=== PATIENT | female | born 1935 ===

== ENCOUNTER 2017-05-22 09:45 | Inpatient (IN) | payer MEDICARE, MEDICAID ==
[2017-05-16 09:32] VITALS: BMI 28.9
[2017-05-27] MEDS ORDERED: Propofol 10 mg/ml Inj (20 ML) ONE (10:10)
[2017-05-27] MEDS ORDERED: ceFAZolin IV 2 gm in Dextrose 0 GM/0 ML BAG IVPB ONE (10:12)
[2017-05-27] MEDS ORDERED: Lidocaine 1% Inj (20ml) ONE (10:12)
[2017-05-27] MEDS ORDERED: Lactated Ringer's 1,000 ML IV ONE (10:15)
[2017-05-27] MEDS ORDERED: ceFAZolin IV 1 gm in Dextrose 1 GM/50 ML BAG IVPB ONE (10:29)
[2017-05-27] MEDS ORDERED: Lidocaine 2% w Epi 1:100,000 Inj IJ ONE (10:30)
[2017-05-27] MEDS ORDERED: Lidocaine 2% Inj (20ml) ONE (10:42)
[2017-05-27] MEDS ORDERED: Phenylephrine 10 mg/ml Inj ONE (11:08)
[2017-05-27] MEDS ORDERED: Oxycodone/Acetaminophen 5/325 mg Tab PO PRN (11:23)
[2017-05-27] MEDS ORDERED: Morphine 4 MG/ML VIAL IVP PRN (11:23)
[2017-05-27] MEDS ORDERED: Lactated Ringer's 1,000 ML IV SCH (11:30)
--- NOTE | 2017-05-27 11:39 | PCM.SURG1 ---
Surgeon's Initial Post Op Note - Surgeon's Notes Surgeon: Dr. Veloz [employer] Worker: Dr. Zee PGY3, Dr. Navarrete PGY2 Type of Anesthesia: General LMA Pre-Operative Diagnosis: rectal prolapse Operative Findings: see dictation Post-Operative Diagnosis: same Operation Performed: perineal repair of rectal prolapse Specimen/Specimens Removed: rectal prolapse Estimated Blood Loss: EBL {In ML}: 20 Blood Products Given: N/A Drains Used: No Drains Post-Op Condition: Good Date of Surgery/Procedure: 05/27/17 Time of Surgery/Procedure: 10:15
[2017-05-27] MEDS ORDERED: Dextrose 5%/0.45% NS 1,000 ML IV ONE (15:00)
[2017-05-27] MEDS: (Novolin R) Insulin Human Regular 100 units/ml vial SC SCH ×2 (16:30→22:06)
--- NOTE | 2017-05-27 18:14 | OP ---
PROCEDURE DATE: 05/27/2017 PREOPERATIVE DIAGNOSIS: Rectal prolapse. POSTOPERATIVE DIAGNOSIS: Rectal prolapse. PROCEDURE CARRIED OUT: Perineal repair of rectal prolapse using modified Altemeier procedure. INDICATIONS: Patient is an 81-year-old woman presenting with large rectal prolapse. She also has a rectocele. In addition, the patient has a lesion in the right colon hepatic flexure, which is being considered for intraluminal excision. Preoperatively, the patient had good sphincter tone on our examination. OPERATIVE FINDINGS: The patient was prepped and draped with Hibiclens and Betadine. Antibiotics were given. The prolapsed rectum was dived in three segments and these were excised using curved stapling devices. After this had been done, we then injected Marcaine with epinephrine again with excellent hemostasis. The prolapse was well repaired. There was no additional prolapse at the time. The procedure was terminated. Blood loss for the procedure was less than 25 mL. Operation carried out was perineal repair of rectal prolapse using modified Altemeier technique. Jason Veloz Jr., MD cc: Lilly Lucero MD and Aj Valente MD
[2017-05-28] MEDS: Dextrose 5%/0.45% NS 1,000 ML IV SCH ×2 (02:35→12:53)
[2017-05-28] MEDS: (Novolin R) Insulin Human Regular 100 units/ml vial SC SCH ×4 (08:44→22:09)
[2017-05-28] MEDS: diltiaZEM 180 mg/24 Hours CD Cap PO SCH (09:36)
[2017-05-29] MEDS: (Novolin R) Insulin Human Regular 100 units/ml vial SC SCH ×2 (07:45→12:14)
[2017-05-29 07:53] VITALS: BP 123/78; PULSE 102; RESP 18; TEMP 98.3; O2SAT 95
[2017-05-29] MEDS: diltiaZEM 180 mg/24 Hours CD Cap PO SCH (10:12)
--- NOTE | 2017-05-29 14:13 | CP.PCM.PN ---
Subjective - Date & Time of Evaluation Date of Evaluation: 05/28/17 Time of Evaluation: 07:40 - Subjective Subjective: Gen Sx: Dr Veloz Pt S&E. NAEO. Tolerating diet. Had 2 BMs. Denies N/V, F/C Objective - Vital Signs/Intake and Output Vital Signs (last 24 hours): Temp Pulse Resp BP Pulse Ox 98.3 F 102 H 18 123/78 95 05/29/17 07:00 05/29/17 07:00 05/29/17 07:00 05/29/17 07:00 05/29/17 07:00 Intake and Output: 05/29/17 05/29/17 06:59 18:59 Intake Total 600 Balance 600 - Medications Medications: Current Medications Aspirin (Ecotrin) 81 mg PO DAILY [facility] Last Admin: 05/29/17 10:13 Dose: 81 mg Clopidogrel Bisulfate (Plavix) 75 mg PO DAILY [facility] Last Admin: 05/29/17 10:12 Dose: 75 mg Dabigatran (Pradaxa) 75 mg PO BID [facility] Last Admin: 05/29/17 10:12 Dose: 75 mg Diltiazem HCl (Cardizem Cd) 180 mg PO DAILY [facility] Last Admin: 05/29/17 10:12 Dose: 180 mg Docusate Sodium (Colace) 100 mg PO BID [facility] Last Admin: 05/29/17 10:12 Dose: 100 mg Home Med (Febuxostat [Uloric]) 40 mg PO DAILY [facility] Dextrose/Sodium Chloride (Dextrose 5%/0.45% Ns 1000 Ml) 1,000 mls @ 83 mls/hr IV .Q12H3M [facility] Last Admin: 05/28/17 12:53 Dose: Not Given Insulin Human Regular (Novolin R) 0 unit SC ACHS [facility] PRN Reason: Protocol Last Admin: 05/29/17 12:14 Dose: Not Given Losartan Potassium (Cozaar) 100 mg PO DAILY [facility] Last Admin: 05/29/17 10:12 Dose: 100 mg Morphine Sulfate (Morphine) 4 mg IVP Q4H PRN PRN Reason: Pain, severe (8-10) Ondansetron HCl (Zofran Inj) 4 mg IVP Q4 PRN PRN Reason: Nausea/Vomiting Last Admin: 05/27/17 20:43 Dose: 4 mg Oxycodone/Acetaminophen (Percocet 5/325 Mg Tab) 1 tab PO Q4 PRN PRN Reason: Pain, moderate (4-7) Stop: 05/30/17 11:24 Last Admin: 05/27/17 17:00 Dose: 1 tab Sitagliptin Phosphate (Januvia) 50 mg PO DAILY [facility] Last Admin: 05/29/17 10:12 Dose: 50 mg Zolpidem Tartrate (Ambien) 5 mg PO HS PRN PRN Reason: Insomnia Last Admin: 05/28/17 21:16 Dose: 5 mg - Constitutional Appears: Non-toxic, No Acute Distress - Head Exam Head Exam: NORMAL INSPECTION - ENT Exam ENT Exam: Mucous Membranes Moist - Respiratory Exam Respiratory Exam: absent: Respiratory Distress - Cardiovascular Exam Cardiovascular Exam: REGULAR RHYTHM. absent: Tachycardia - GI/Abdominal Exam GI & Abdominal Exam: Soft. absent: Tenderness Assessment and Plan - Assessment and Plan (Free Text) Assessment: 81F POD#1 s/p PPR Plan: cont reg diet switch to PO pain meds will keep for 1 more day for observation d/w Dr Veloz
--- NOTE | 2017-05-29 14:14 | CP.PCM.DIS ---
Provider - Provider Date of Admission: 05/27/17 08:07 Attending physician: Jason Veloz Jr, MD Time Spent in preparation of Discharge (in minutes): 25 Hospital Course - Lab Results Lab Results: Most Recent Lab Values POC Glucose (mg/dL) 95 mg/dL (65-110) 05/29/17 11:28 - Hospital Course Hospital Course: General Surgery Dr. Veloz 81 y/o F presented to [facility] on 05/27/17 for elective repair of rectal prolapse. Pt tolerated the surgery well w/ no complications. Pt was admitted post- operatively for pain control and monitoring. Pt S&E @bedside this morning. Pt has no complaints. Pain well controlled. Pt tolerating regular diet. Pt denies F /C, N/V, D/C. Pt cleared for discharge to home. Pt instructed to resume all home medications and follow up w/ Dr. Veloz in 1 week. Discharge Exam - Head Exam Head Exam: NORMAL INSPECTION - Eye Exam Eye Exam: Normal appearance - ENT Exam ENT Exam: Mucous Membranes Moist - Respiratory Exam Respiratory Exam: NORMAL BREATHING PATTERN. absent: Accessory Muscle Use, Respiratory Distress - Cardiovascular Exam Cardiovascular Exam: absent: Bradycardia, Tachycardia - GI/Abdominal Exam GI & Abdominal Exam: Soft. absent: Distended, Tenderness - Extremities Exam Extremities exam: normal inspection - Neurological Exam Neurological exam: Alert, Oriented x3 - Psychiatric Exam Psychiatric exam: Normal Affect, Normal Mood - Skin Skin Exam: Dry, Intact, Normal Color, Warm Discharge Plan - Follow Up Plan Condition: GOOD Disposition: HOME/ ROUTINE Instructions: Rectal Prolapse (DC) Additional Instructions: follow up with Dr. Veloz in office in 7-10 days Follow up with PMD within 1 week Recommend daily stool softener Resume all home medications Pt may shower No pools, tubs, baths Call Dr. Veloz and return to the ED if fever >100.4, pain, bleeding, drainage from rectum Referrals: Jason Veloz Jr., MD [Staff Provider] -
== END 2017-05-29 16:52 | disposition home or self-care (01) | DRG 334 ==
LOC: C.9S 05-27 08:07 → EDSTATUS 05-27 09:00 → C.6T 05-27 18:45
PROVIDERS: ADMIT Surgery Vascular Surgery; ATTEND Surgery Vascular Surgery
PROC: 0DTP0ZZ Resection of Rectum, Open Approach (ICD-10-PCS; principal; 2017-05-27 09:00)
DX: K62.3 Rectal prolapse (principal)

== ENCOUNTER 2018-03-20 21:46 | Inpatient (IN) | payer MEDICARE, MEDICAID ==
[2018-03-20 21:47] VITALS: BMI 28.9
--- NOTE | 2018-03-20 21:58 | C.PDOC ---
History Of Present Illness Pt had some left leg pain and numbness around noon. Went to [facility], had a ct of the leg and was discharged. At home eating t[place] , around 8:45-9 pm pt became confused, slurred speech and staring into "space" Ems was called and en route, pt returned to base line. In the Ed ,pt somewhat confused, slow to respond, but moving all extremities. Code stroke was called and pt had a stat head ct which was negative for bleed or stroke. Pt is aaox3 and movesd all extremities. Pt is on a asa and plavix daily Time Seen by Provider: 03/20/18 21:54 Chief Complaint (Nursing): Altered Mental Status History Per: Family History/Exam Limitations: None Onset/Duration Of Symptoms: Hrs Onset Of Symptoms: <3 Hours Current Symptoms Are (Timing): Gone Usual Baseline: Alert Oriented Exacerbating Factor(s): Unknown Use Of Anticoag/Antiplatelets: Yes Character Of Deficits: Left: Weakness, Face: Weakness Speech Is: Normal Severity: Moderate Pain Scale Rating Of: 4 Recent travel outside of the [place]: No Additional History Per: Family Associated Symptoms: denies: Fever, Chills, Syncope Past Medical History Reviewed: Historical Data, Nursing Documentation, Vital Signs - Medical History PMH: Asthma, Cardia Arrhythmia, Depression, HTN, Hypercholesterolemia, Chronic Kidney Disease - [facility] Procedures RESECTION OF RECTUM, OPEN APPROACH (05/27/17) Family History: States: No Known Family Hx - Social History Hx Alcohol Use: No Hx Substance Use: No Physical Exam - Physical Exam Appears: Non-toxic Skin: Warm, Dry Head: Normacephalic Eye(s): bilateral: Normal Inspection, PERRL, EOMI Oral Mucosa: Moist Lips: Normal Appearing Neck: Supple Chest: Symmetrical Cardiovascular: Rhythm Regular Respiratory: No Rales, No Rhonchi, No Wheezing Gastrointestinal/Abdominal: Soft, No Tenderness, No Distention Back: Normal Inspection Extremity: Normal ROM Extremity: Bilateral: Atraumatic, Normal Color And Temperature Pulses: Left Dorsalis Pedis: Normal, Right Dorsalis Pedis: Normal Neurological/Psych: Oriented x3, Normal Speech, Normal Cognition Gait: Unable To Assess ED Course And Treatment - Laboratory Results Result Diagrams: 03/20/18 22:11 03/20/18 22:11 ECG: Interpreted By Me, Viewed By Me ECG Rhythm: Sinus Rhythm (82), Nonspecific Changes O2 Sat by Pulse Oximetry: 97 Pulse Ox Interpretation: Normal Progress Note: 10:[address] capellan. Will get CTA and re-asses. cta essentially neg - spoke with dr capellan again. ok to start keppra 500 q 12h. pt stable. aaox3, moves all extremities Critical Care Time - Critical Care Note Total Time (in mins): 30 Documented critical care: time excludes all time spent performing seperately billable procedures. NIHSS Stroke Scale - Date/Time Evaluation Performed Date Performed: 03/20/18 Time Performed: 21:56 When Was NIHSS Performed: Baseline - How Severe is the Stoke Level of Consciousness: 0=Alert LOC to Questions: 0=Both comments correct LOC to commands: 0=Obeys both correctly Best Gaze: 0=Normal Visual: 0=No visual loss Facial: 0=Normal Motor Arm - Left: 0=No drift Motor Arm - Right: 0=No drift Motor Leg - Left: 0=No drift Motor Leg - Right: 0=No drift Limb Ataxia: 0=Absent Sensory: 0=Normal Best Language: 0=No aphasia Dysarthia: 0=Normal articulation Extinction & Inattention (Neglect): 0=Normal, no object Score: 0 Severity Of Stroke: 0= No Stroke Disposition Discussed With : Yasmin Virgen Comment: accepted the pt on her service and took over the care at 1:20 AM Doctor Will See Patient In The: Hospital Counseled Patient/Family Regarding: Studies Performed, Diagnosis - Disposition Disposition: HOSPITALIZED Disposition Time: 21:54 Condition: GUARDED Forms: [employer] (Portuguese) - Clinical Impression Clinical Impression: TIA (transient ischemic attack), Focal seizure Decision To Admit - Pt Status Changed To: Hospital Disposition Of: Inpatient - Admit Certification Admit to Inpatient:: After my assessment, the patient will require hospitalization for at least two midnights. This is because of the severity of symptoms shown, intensity of services needed, and/or the medical risk in this patient being treated as an outpatient. - InPatient: Physician Admission Certification:: After my assessment, the patient will require hospitalization for at least two midnights. This is because of the severity of symptoms shown, intensity of services needed, and/or the medical risk in this patient being treated as an outpatient. - . Bed Request Type: Telemetry Patient Diagnosis: TIA (transient ischemic attack), Focal seizure
[2018-03-20] MEDS: Sodium Chloride 0.9% 1,000 ML IV SCH (22:00)
[2018-03-20 22:20] LABS: BASO % 0.6 % (0.0-2.0); EOS # 0.1 K/uL (0.0-0.7); EOS % 0.8 % (0.0-4.0); HEMOGLOBIN 13.2 g/dL (11.0-16.0); LYMPH # 1.8 K/uL (1.0-4.3); LYMPH % 22.4 % (20.0-40.0); MEAN CELL VOLUME 84.7 fL (81.0-99.0); MEAN CORPUSCULAR HEMOGLOBIN 28.2 pg (27.0-31.0); MEAN CORPUSCULAR HGB CONC 33.3 g/dL (33.0-37.0); MEAN PLATELET VOLUME 7.2 fL (7.2-11.7); MONO # 0.7 K/uL (0.0-0.8); MONO % 8.1 % (0.0-10.0); NEUT # 5.6 K/uL (1.8-7.0); NEUT % 68.1 % (50.0-75.0); NRBC % 0.1 % (0.0-2.0); RBC 4.68 Mil/uL (3.80-5.20); RED CELL DISTRIBUTION WIDTH 14.8 % (11.5-14.5); WHITE BLOOD COUNT 8.2 K/uL (4.8-10.8)
[2018-03-20 22:24] LABS: INR 1.1
[2018-03-20 22:29] LABS: ALB/GLOB RATIO 1.2 (1.0-2.1); ALT/SGPT 25 U/L (9-52); AST/SGOT 34 U/L (14-36); BLOOD UREA NITROGEN 16 mg/dL (7-17); CALCIUM 8.7 mg/dl (8.6-10.4); GFR NON-AFRICAN AMERICAN > 60; HDL CHOLESTEROL 37 mg/dL (30-70)
[2018-03-20 22:39] LABS: LDL CHOLESTEROL 57 mg/dL (0-129)
[2018-03-20 22:53] LABS: SQUAMOUS EPITHIAL 2 /hpf (0-5); URINE BACTERIA RARE (<OCC); URINE BILIRUBIN NEGATIVE (NEGATIVE); URINE BLOOD NEGATIVE (NEGATIVE); URINE CLARITY Clear (Clear); URINE COLOR Straw (YELLOW); URINE GLUCOSE (UA) NORMAL (Normal); URINE LEUKOCYTE ESTERASE TRACE Leu/uL (Negative); URINE PROTEIN NEGATIVE (NEGATIVE); URINE UROBILINOGEN NORMAL mg/dL (0.2-1.0)
[2018-03-20] MEDS ORDERED: Iodixanol 320 MG/ML 100 ML BOTTLE IV ONE (23:30)
--- NOTE | 2018-03-21 08:34 | RAD ---
Date of service: 03/20/2018 HISTORY: Code Stroke COMPARISON: 05/16/2017. FINDINGS: LUNGS: There is linear scarring in the right lung base. The left lung is clear. No focal consolidation. PLEURA: No significant pleural effusion identified, no pneumothorax apparent. CARDIOVASCULAR: Mild cardiomegaly. OSSEOUS STRUCTURES: No significant abnormalities. VISUALIZED UPPER ABDOMEN: Normal. OTHER FINDINGS: None. IMPRESSION: No acute findings. No interval change.
--- NOTE | 2018-03-21 09:21 | CT ---
Date of service: 03/20/2018 PROCEDURE: CT HEAD WITHOUT CONTRAST. HISTORY: Code Stroke COMPARISON: None available. TECHNIQUE: Axial computed tomography images were obtained through the head/brain without intravenous contrast. Radiation dose: Total exam DLP = 929.21 mGy-cm. This CT exam was performed using one or more of the following dose reduction techniques: Automated exposure control, adjustment of the mA and/or kV according to patient size, and/or use of iterative reconstruction technique. FINDINGS: HEMORRHAGE: No intracranial hemorrhage. BRAIN: [place]-white matter differentiation is preserved. There is no mass, mass effect or abnormal extra-axial fluid collection. There is no territorial infarction. The midline sagittal structures are normal. VENTRICLES: There is mild age-related global parenchymal volume loss and proportionate enlargement of the ventricles and cortical sulci. CALVARIUM: Unremarkable. PARANASAL SINUSES: There is a retention cyst/polyp in the right maxillary sinus and mild mucosal thickening in the left maxillary sinus. MASTOID AIR CELLS: Unremarkable as visualized. No inflammatory changes. OTHER FINDINGS: None. IMPRESSION: No acute intracranial abnormality. If there is a persistent focal neurologic deficit and an ongoing clinical concern for acute infarction, an MRI of the brain without intravenous contrast would be a more sensitive modality for evaluation of hyperacute/acute ischemic infarction. A preliminary report was provided by [employer].
[2018-03-21] MEDS ORDERED: CARVEDILOL 25 MG PO SCH (10:00)
[2018-03-21] MEDS: diltiaZEM 180 mg/24 Hours CD Cap PO SCH ×2 (10:00→12:03)
[2018-03-21] MEDS ORDERED: Ergocalciferol 50,000 Intl Units Cap PO SCH (10:00)
[2018-03-21] MEDS ORDERED: SERTRALINE HCL 50 MG PO SCH (10:00)
--- NOTE | 2018-03-21 10:09 | MRI ---
Date of service: 03/21/2018 PROCEDURE: MRI BRAIN WITHOUT CONTRAST HISTORY: TIA R/O SEIZURE COMPARISON: None available. TECHNIQUE: Multiplanar, multisequence MR images of the brain were obtained without intravenous contrast enhancement. Note the examination is limited by motion artifact. FINDINGS: HEMORRHAGE: No acute parenchymal, subarachnoid or extra-axial hemorrhage. DWI: There is large area acute ischemia involving left posterior temporal lobe extending superiorly into left parietal operculum and left posterior temporal parietal/frontal parietal watershed zone.. BRAIN PARENCHYMA: Minor chronic periventricular white matter ischemic changes.. Few tiny chronic appearing lacunar type infarcts scattered about cerebellar hemispheres and possibly both basal nuclei Mild generalized volume loss VENTRICLES: No obstructive hydrocephalus CRANIUM: No acute calvarial ORBITS: Grossly unremarkable. PARANASAL SINUSES/MASTOIDS: There appears to be a small to medium-sized retention cyst right maxillary. VASCULAR SYSTEM: Visualized major vascular flow voids at skull base patent. OTHER FINDINGS: None. IMPRESSION: Limited motion degraded study. No acute intracranial hemorrhage. Acute infarct right temporal lobe extending superiorly into the right parietal operculum and right temporoparietal watershed zone. Note that 6T Nurse Ava informed these findings at approximately 9:55 a.m. down read back verification. Minimal chronic periventricular white matter ischemic changes. Few tiny chronic appearing lacunar type infarcts scattered about cerebellar hemispheres and possibly both basal nuclei
--- NOTE | 2018-03-21 10:22 | CP.PCM.CON ---
History of Present Illness - History of Present Illness History of Present Illness: PGY1 Neurology Consult Note for Dr. España This is an 82-year-old female who was referred to us by Dr. Virgen, and who has a past medical history of asthma, arrhythmia, depression, hypertension, hypercholesterolemia, CDK who came to the ED for left lower extremity weakness and pain. Patients daughter at bedside. Per patients daughter, the patient was initially brought to [facility], where she a CT of lower extremity was obtained, after which the patient was discharge. Patient was still complaining of left leg pain during the day. However, patients daughter states that the patient began choking on her dinner, which prompted her to call EMS who brought the patient to [facility] ED around 8:45-9:00PM. Per patients daughter, the patient was slurring her words and was staring into "space, but returned to baseline on the way to the ED. While in the ED, the patient was somewhat confused, slow to respond, but moving all extremities. Patient denies chest pain, headache, shortness of breath, vision changes, and/or dizziness. Code stroke was called CT head without contrast was obtained stat, which was unremarkable for intracranial abnormalities. Review of Systems - Constitutional Constitutional: As Per HPI - EENT Eyes: As Per HPI Ears: As Per HPI Nose/Mouth/Throat: As Per HPI - Cardiovascular Cardiovascular: As Per HPI - Musculoskeletal Musculoskeletal: As Per HPI - Neurological Neurological: As Per HPI - Psychiatric Psychiatric: As Per HPI Past Patient History - Past Medical History & Family History Past Medical History?: Yes - Past Social History Smoking Status: Never Smoked - CARDIAC Hx Cardia Arrhythmia: Yes Hx Hypercholesterolemia: Yes Hx Hypertension: Yes - PULMONARY Hx Asthma: Yes - NEUROLOGICAL Hx Neurological Disorder: No - HEENT Hx HEENT Problems: Yes Other/Comment: USES GLASSES FOR READING - RENAL Hx Chronic Kidney Disease: Yes - ENDOCRINE/METABOLIC Hx Endocrine Disorders: Yes Hx Diabetes Mellitus Type 1: Yes - HEMATOLOGICAL/ONCOLOGICAL Hx Blood Disorders: No - INTEGUMENTARY Hx Dermatological Problems: No - MUSCULOSKELETAL/RHEUMATOLOGICAL Hx Musculoskeletal Disorders: Yes Hx Falls: Yes Hx Osteomyelitis: Yes - GASTROINTESTINAL Hx Gastrointestinal Disorders: Yes Other/Comment: RECTAL POLYP - GENITOURINARY/GYNECOLOGICAL Hx Genitourinary Disorders: No - PSYCHIATRIC Hx Depression: Yes Hx Substance Use: No - SURGICAL HISTORY Hx Surgeries: Yes Other/Comment: BREAST REDUCTION 1990, MICAELA HERNADEZ 1990 - ANESTHESIA Hx Anesthesia: Yes Hx Anesthesia Reactions: No Hx Malignant Hyperthermia: No Meds Allergies/Adverse Reactions: Allergies Allergy/AdvReac Type Severity Reaction Status Date / Time No Known Allergies Allergy Verified 05/16/17 09:30 - Medications Medications: Current Medications Aspirin (Ecotrin) 81 mg PO DAILY [facility] Clopidogrel Bisulfate (Plavix) 75 mg PO DAILY [facility] Diltiazem HCl (Cardizem Cd) 180 mg PO DAILY [facility] Ergocalciferol (Drisdol 50,000 Intl Units Cap) 50,000 cap PO QWK [facility] Home Med (Carvedilol) 25 mg PO BID [facility] Home Med (Febuxostat [Uloric]) 40 mg PO DAILY [facility] Home Med (Sertraline Hcl) 50 mg PO DAILY [facility] Sodium Chloride (Sodium Chloride 0.9%) 1,000 mls @ 100 mls/hr IV .Q10H [facility] Last Admin: 03/20/18 22:00 Dose: 100 mls/hr Levetiracetam 500 mg/ Dextrose 105 mls @ 420 mls/hr IVPB Q12H [facility] Stop: 03/22/18 01:29 Last Admin: 03/21/18 01:36 Dose: 420 mls/hr Sitagliptin Phosphate (Januvia) 50 mg PO DAILY [facility] Physical Exam - Constitutional Appears: Non-toxic, No Acute Distress - Head Exam Head Exam: ATRAUMATIC, NORMAL INSPECTION, NORMOCEPHALIC - Eye Exam Eye Exam: EOMI, Normal appearance, PERRL Pupil Exam: NORMAL ACCOMODATION - ENT Exam ENT Exam: Mucous Membranes Moist, Normal Exam - Neck Exam Neck exam: Positive for: Normal Inspection - Neurological Exam Neurological exam: Alert, CN II-XII Intact, Oriented x3, Reflexes Normal - Expanded Neurological Exam Expanded Patient oriented to: person, place, time Cranial nerves: EOM's Intact: Normal, Facial Palsey w/Forehead Movement: Normal, Facial Palsey w/o Forehead Movement: Normal, Facial Sensation: Normal, Gag Reflex: Normal, Nystagmus: Normal, Tongue Deviation: Normal Cerebellar Function: Finger to Nose: Normal Upper motor neuron: Pronator Drift: Normal Sensory exam: Lower Extremity Light Touch: Normal, Upper Extremity Light Touch: Normal Neuro motor strength exam: Left Upper Extremity: 5, Right Upper Extremity: 5, Left Lower Extremity: 5, Right Lower Extremity: 5 - Psychiatric Exam Psychiatric exam: Normal Affect, Normal Mood - Skin Skin Exam: Normal Color Results - Vital Signs Recent Vital Signs: Last Vital Signs Temp 98 F 03/21/18 07:00 Pulse 63 03/21/18 07:00 Resp 20 03/21/18 07:00 BP 147/62 03/21/18 07:00 Pulse Ox 97 03/21/18 07:00 - Labs Result Diagrams: 03/20/18 22:11 03/20/18 22:11 Labs: Laboratory Results - last 24 hr 03/20/18 03/20/18 03/20/18 21:56 22:11 22:11 WBC 8.2 RBC 4.68 Hgb 13.2 Hct 39.7 MCV 84.7 D MCH 28.2 MCHC 33.3 RDW 14.8 H Plt Count 440 H D MPV 7.2 Neut % (Auto) 68.1 Lymph % (Auto) 22.4 [place] % (Auto) 8.1 Eos % (Auto) 0.8 Baso % (Auto) 0.6 Neut # (Auto) 5.6 Lymph # (Auto) 1.8 [place] # (Auto) 0.7 Eos # (Auto) 0.1 Baso # (Auto) 0.0 PT 12.0 INR 1.1 APTT 32 Sodium Potassium Chloride Carbon Dioxide Anion Gap BUN Creatinine Est GFR ( Amer) Est GFR (Non-Af Amer) POC Glucose (mg/dL) 144 H Random Glucose Hemoglobin A1c Calcium Total Bilirubin AST ALT Alkaline Phosphatase Troponin I Total Protein Albumin Globulin Albumin/Globulin Ratio Triglycerides Cholesterol LDL Cholesterol Direct HDL Cholesterol Urine Color Urine Clarity Urine pH Ur Specific [place] Urine Protein Urine Glucose (UA) Urine Ketones Urine Blood Urine Nitrate Urine Bilirubin Urine Urobilinogen Ur Leukocyte Esterase Urine WBC (Auto) Urine RBC (Auto) Ur Squamous Epith Cells Urine Bacteria Blood Type Antibody Screen 03/20/18 03/20/18 03/20/18 22:11 22:11 22:11 WBC RBC Hgb Hct MCV MCH MCHC RDW Plt Count MPV Neut % (Auto) Lymph % (Auto) [place] % (Auto) Eos % (Auto) Baso % (Auto) Neut # (Auto) Lymph # (Auto) [place] # (Auto) Eos # (Auto) Baso # (Auto) PT INR APTT Sodium 142 Potassium 4.8 Chloride 107 Carbon Dioxide 24 Anion Gap 16 BUN 16 Creatinine 0.7 Est GFR ( Amer) > 60 Est GFR (Non-Af Amer) > 60 POC Glucose (mg/dL) Random Glucose 145 H Hemoglobin A1c 6.1 Calcium 8.7 Total Bilirubin 0.8 AST 34 ALT 25 Alkaline Phosphatase 74 Troponin I 0.0180 Total Protein 7.5 Albumin 4.0 Globulin 3.5 Albumin/Globulin Ratio 1.2 Triglycerides 187 H Cholesterol 130 LDL Cholesterol Direct 57 HDL Cholesterol 37 Urine Color Urine Clarity Urine pH Ur Specific [place] Urine Protein Urine Glucose (UA) Urine Ketones Urine Blood Urine Nitrate Urine Bilirubin Urine Urobilinogen Ur Leukocyte Esterase Urine WBC (Auto) Urine RBC (Auto) Ur Squamous Epith Cells Urine Bacteria Blood Type O POSITIVE Antibody Screen Negative 03/20/18 22:39 WBC RBC Hgb Hct MCV MCH MCHC RDW Plt Count MPV Neut % (Auto) Lymph % (Auto) [place] % (Auto) Eos % (Auto) Baso % (Auto) Neut # (Auto) Lymph # (Auto) [place] # (Auto) Eos # (Auto) Baso # (Auto) PT INR APTT Sodium Potassium Chloride Carbon Dioxide Anion Gap BUN Creatinine Est GFR ( Amer) Est GFR (Non-Af Amer) POC Glucose (mg/dL) Random Glucose Hemoglobin A1c Calcium Total Bilirubin AST ALT Alkaline Phosphatase Troponin I Total Protein Albumin Globulin Albumin/Globulin Ratio Triglycerides Cholesterol LDL Cholesterol Direct HDL Cholesterol Urine Color Straw Urine Clarity Clear Urine pH 7.0 Ur Specific [place] 1.039 H Urine Protein Negative Urine Glucose (UA) Normal Urine Ketones Negative Urine Blood Negative Urine Nitrate Negative Urine Bilirubin Negative Urine Urobilinogen Normal Ur Leukocyte Esterase Trace Urine WBC (Auto) 7 H Urine RBC (Auto) 1 Ur Squamous Epith Cells 2 Urine Bacteria Rare Blood Type Antibody Screen Assessment & Plan - Assessment and Plan (Free Text) Assessment: This is an 82-year-old female who was referred to us by Dr. Virgen, and who has a past medical history of asthma, arrhythmia, depression, hypertension, hyp ercholesterolemia, CDK who came to the ED for left lower extremity weakness and pain. Acute Stroke, right temporal lobe infarct - CT head without contrast: No intracranial abnormalities - MRI brain official report: acute infarct of right temporal lobe extending superiorly into right parietal operculum and right temporal parietal watershed zone. A few tiny chronic appearing lacunar type infarct scattered about cerebellar hemisphere is and possibly both basal nuclei. - Continue Aspirin, Plavix, Statin - PRU sensitivity ordered - Patient already being treated with SSRI therapy, as per FLAME study it would be beneficial to switch to fluoxetine instead of zoloft - CTA head & neck official report: limited study due to motion artifact. 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 No evidence of occlusion proximal branches of intracerebral circulation. - Carotid doppler obtained: pending official report - Continue physical therapy
--- NOTE | 2018-03-21 11:26 | CT ---
Date of service: 2018-03-20 PROCEDURE: CT Angiography of the neck and brain with contrast HISTORY: Change in mental status, left facial droop.. TECHNIQUE: Contiguous axial images of the neck and brain were obtained from the level of the skull-base to the superior mediastinum in the arteriographic phase of enhancement. Coronal and sagittal reformats or also generated. IV contrast dose: 100 cc Omnipaque 350 Radiation Dose - DLP: 556.39 mGy-cm This CT exam was performed using one or more of the following dose reduction techniques: Automated exposure control, adjustment of the mA and/or kV according to patient size, and/or use of iterative reconstruction technique.. FINDINGS: Note the examination is limited by motion artifact. The aortic arch is patent though there is aneurysmal dilatation ascending portion of the aortic arch measuring approximately 4.[address] scan of the chest could be performed for further evaluation. The right brachiocephalic and left common carotid artery arise from a common trunk.. Partially ossicular sclerotic plaque changes are seen along the aortic arch and origins of the great vessels. Both proximal/mid common carotid arteries take a short retropharyngeal course. Bifurcations are also in the retropharyngeal region of. Significant atherosclerotic plaque left and to a lesser degree right carotid bifurcations with more significant stenosis on the left side. Due to motion artifact evaluation is limited though estimated diameter stenosis proximal 65 70 %. Less significant stenosis on the right. The internal carotid arteries also exhibit a short retropharyngeal course. The petrous cavernous and supraclinoid segments are poorly seen due to motion artifact however note made of mild partially calcified atherosclerotic plaque along the cavernous carotid segments The anterior and middle cerebral arteries are patent. The distal branches of the anterior middle cerebral arteries also appear patent the poorly seen. Both vertebral arteries are patent throughout right-sided which is larger in caliber/more dominant than the left. Basilar artery is patent. Mid and distal posterior cerebral arteries appear patent as well within limitation of the exam No large aneurysm nor vascular malformation noted within limitation of the exam. OTHER FINDINGS: There is an approximately 1 cm elliptical shaped low-attenuation lesion right lobe thyroid gland. Followup thyroid ultrasound recommended. Mild multilevel degenerative spondylosis of the cervical spine IMPRESSION: Limited study due to motion artifact. Aneurysmal dilatation of the ascending thoracic aorta (approximately 4.5 cm in greatest diameter). Follow-up CT scan chest recommended. Significant atherosclerotic plaque left carotid bifurcation estimated at approximately 65-70 diameter % diameter stenosis with less severe on stenosis on the right side. No evidence of occlusion proximal branches of the intra cerebral circulation. 1 cm low-attenuation lesion right lobe thyroid gland for which thyroid ultrasound recommended
[2018-03-21] MEDS: Sodium Chloride 0.9% 1,000 ML IV SCH ×3 (11:32→22:39)
[2018-03-21] MEDS ORDERED: Patient's Own Medication - Tablet/Capusle PO SCH (12:30)
--- NOTE | 2018-03-21 15:41 | CARD ---
APPROVED REPORT Date of service: 03/20/2018 EKG Measurement Heart [id number] <Conclusion> Normal sinus rhythm ST & T wave abnormality, consider lateral ischemia Abnormal ECG
--- NOTE | 2018-03-22 01:54 | CON ---
DATE: 03/21/2018 CHIEF COMPLAINT AND REASON FOR CONSULTATION: The patient is referred by Dr. Virgen for evaluation and comanagement, as the patient has history of depression and anxiety. The patient has been taking Zoloft and Ambien for many years prescribed by Dr. Muñoz, her primary care doctor. HISTORY OF PRESENT ILLNESS: This is a case of an 82-year-old female who lives alone. The patient was admitted here for change in mental status. According to the chart, the patient earlier went to [facility] complaining of leg pain and numbness and a CAT scan of the leg was negative, went home. The patient at home was eating [place] food and was noted to becoming more confused, having slurred speech, and staring into space. The patient has waxing and waning of her mental status. In the emergency room, code stroke was ordered and her CAT scan of the head showed no bleed but the patient continues to have off and on periods of confusion and also some weakness, and was admitted here for stroke. The patient referred for comanagement. The patient has history of depression and anxiety; has been taking Ambien for more than three years every night to have her sleep, but currently off Ambien and was taking sertraline 50 mg daily for anxiety and depression. The patient was seen today. She has periods of confusion but asking for Ambien, stating that she could not sleep without it. She was earlier given Ativan at night because she became agitated. Today, she seems to be much better. On review of her labs, the patient initially yesterday had a CAT scan of the head that showed no acute intracranial abnormality; however, there is a persistent focal neurologic deficit and ongoing concern for acute infarction. MRI of the brain without IV contrast would be a more sensitive modality to evaluate any hyperacute or acute ischemic infarction. The patient eventually had an MRI of the brain done today and showed the following findings: The patient has an acute infarct, right temporal lobe extending superiorly into the right parietal operculum and right temporoparietal watershed zone. The patient also has minimal chronic periventricular white matter ischemic changes. PAST PSYCHIATRIC HISTORY: History of depression and anxiety as stated. PAST MEDICAL HISTORY: The patient has history of TIA, seizure, rectal prolapse. DRUG AND ALCOHOL HISTORY: Denies any. ALLERGIES: NO KNOWN DRUG ALLERGIES. PSYCHOSOCIAL HISTORY: The patient lives alone in a two family house. Her daughter lives downstairs. MEDICATIONS: List of current medications includes diltiazem, Coreg, Zestril, Ecotrin, Januvia, Keppra, the patient was started on Keppra by neurologist, Plavix, Zoloft 50 mg daily, and Tylenol. PHYSICAL EXAMINATION: VITAL SIGNS: Temperature is 98, pulse 63, blood pressure 157/79, respirations 20, oxygen saturation is 97%. REVIEW OF SYSTEMS: CONSTITUTIONAL: The patient is alert, verbal, oriented x2, periods of confusion seems in her family. The patient states that she does not like the food in the hospital and asking her family if she can have chicken soup from home. SKIN: No diaphoresis. HEENT: No headache or dizziness. No blurring of vision. NECK: Supple. RESPIRATORY: No dyspnea. CARDIOVASCULAR: No chest pain. GASTROINTESTINAL: Appetite is poor. EXTREMITIES: Complaining of weakness. GENITOURINARY: No incontinence. NEUROLOGIC: Alert with periods of confusion, this seems resolving. MENTAL STATUS EXAMINATION: Elderly female with [place] descent, about 5 feet and weighs 146 pounds. Speech is spontaneous, not slurred when seen today and conversing in [place]. today. Affect is reactive. Mood is dysphoric, anxious, and somatic. Thought process, less confused. Thought content, the patient is complaining about the food. She also wants her Ambien for sleep. The patient made aware that she can only have 5 mg of Ambien and not more than 10 per pharmacy protocol of this hospital. No psychosis. No suicidal ideation. Attention and memory seem to be fair. Insight and judgement are fair. Impulse control is fair. IMPRESSION: History of recurrent depression and anxiety as well as acute cerebrovascular accident. PLAN AND RECOMMENDATION: The patient was seen, meds reviewed. We will give Ambien 5 mg at bedtime for insomnia and continue Zoloft 50 mg daily for depression. The patient has been followed for her CVA at this time. Continue treatment plan as outlined. Thank you for the consult. Rudy Skinner MD DATE: 03/21/2018 CHIEF COMPLAINT AND REASON FOR CONSULTATION: The patient is referred by Dr. Virgen for evaluation and comanagement, as the patient has history of depression and anxiety. The patient has been taking Zoloft and Ambien for many years prescribed by Dr. Muñoz, her primary care doctor. HISTORY OF PRESENT ILLNESS: This is a case of an 82-year-old female who lives alone. The patient was admitted here for change in mental status. According to the chart, the patient earlier went to [facility] complaining of leg pain and numbness and a CAT scan of the leg was negative, went home. The patient at home was eating [place] food and was noted to becoming more confused, having slurred speech, and staring into space. The patient has waxing and waning of her mental status. In the emergency room, code stroke was ordered and her CAT scan of the head showed no bleed but the patient continues to have off and on periods of confusion and also some weakness, and was admitted here for stroke. The patient referred for comanagement. The patient has history of depression and anxiety; has been taking Ambien for more than three years every night to have her sleep, but currently off Ambien and was taking sertraline 50 mg daily for anxiety and depression. The patient was seen today. She has periods of confusion but asking for Ambien, stating that she could not sleep without it. She was earlier given Ativan at night because she became agitated. Today, she seems to be much better. On review of her labs, the patient initially yesterday had a CAT scan of the head that showed no acute intracranial abnormality; however, there is a persistent focal neurologic deficit and ongoing concern for acute infarction. MRI of the brain without IV contrast would be a more modality to evaluate any hyperacute or acute ischemic infarction. The patient eventually had an MRI of the brain done today and showed the following finding: The patient has an acute infarct, right temporal lobe extending superiorly into the right parietal operculum and right temporoparietal watershed zone. The patient also has minimal chronic periventricular white matter ischemic changes. PAST PSYCHIATRIC HISTORY: History of depression and anxiety as stated. PAST MEDICAL HISTORY: The patient has history of TIA, seizure, rectal prolapse. DRUG AND ALCOHOL HISTORY: Denies any. ALLERGIES: NO KNOWN DRUG ALLERGIES. PSYCHOSOCIAL HISTORY: The patient lives alone in a two family house. Her daughter lives downstairs. MEDICATIONS: List of current medications includes diltiazem, Coreg, Zestril, Ecotrin, Januvia, Keppra, the patient was started on Keppra by neurologist, Plavix, Zoloft 50 mg daily, and Tylenol. PHYSICAL EXAMINATION: VITAL SIGNS: Temperature is 98, pulse 63, blood pressure 157/79, respirations 20, oxygen saturation is 97%. REVIEW OF SYSTEMS: CONSTITUTIONAL: The patient is alert, verbal, oriented x2, periods of confusion seems in her family. The patient states that she does not like the food in the hospital and asking her family if she can have chicken soup from home. SKIN: No diaphoresis. HEENT: No headache or dizziness. No blurring of vision. NECK: Supple. RESPIRATORY: No dyspnea. CARDIOVASCULAR: No chest pain. GASTROINTESTINAL: Appetite is poor. EXTREMITIES: Complaining of weakness. GENITOURINARY: No incontinence. NEUROLOGIC: Alert with periods of confusion, this seems resolving. MENTAL STATUS EXAMINATION: Elderly female with [place] descent, about 5 feet and weighs 146 pounds. Speech is spontaneous, not slurred today. Affect is reactive. Mood is dysphoric, anxious, and somatic. Thought process, less confused. Thought content, the patient is complaining about the food. She also wants her Ambien for sleep. The patient made aware that she can only have 5 mg of Ambien and not more than 10 per pharmacy protocol of this hospital. No psychosis. No suicidal ideation. Attention and memory seem to be fair. Insight and judgment are fair. Impulse control is fair. IMPRESSION: History of recurrent depression and anxiety as well as acute cerebrovascular accident. PLAN AND RECOMMENDATION: The patient was seen, meds reviewed. We will give Ambien 5 mg at bedtime for insomnia and continue Zoloft 50 mg daily for depression. The patient has been followed for her CVA at this time. Continue treatment plan as outlined. Thank you for the consult. Rudy Skinner MD [facility]
[2018-03-22] MEDS: Sodium Chloride 0.9% 1,000 ML IV SCH ×2 (04:00→14:32)
[2018-03-22] MEDS: diltiaZEM 180 mg/24 Hours CD Cap PO SCH (10:00)
--- NOTE | 2018-03-22 11:31 | CP.PCM.HP ---
History of Present Illness - History of Present Illness History of Present Illness: pt came in [facility] for feeling numness and weekness r foot mri showed new infarction Present on Admission - Present on Admission Any Indicators Present on Admission: No Review of Systems - Review of Systems Systems not reviewed;Unavailable: Acuity of Condition - Constitutional Constitutional: As Per HPI - EENT Eyes: Change in Vision Ears: As Per HPI Nose/Mouth/Throat: As Per HPI - Breasts Breasts: As Per HPI - Cardiovascular Cardiovascular: As Per HPI - Respiratory Respiratory: As Per HPI - Gastrointestinal Gastrointestinal: As Per HPI - Genitourinary Genitourinary: As Per HPI - Reproductive: Female Reproductive:Female: As Per HPI - Menstruation Menstruation: As Per HPI - Musculoskeletal Musculoskeletal: As Per HPI - Integumentary Integumentary: As Per HPI - Neurological Neurological: As Per HPI - Psychiatric Psychiatric: As Per HPI - Endocrine Endocrine: As Per HPI Past Patient History - Past Medical History & Family History Past Medical History?: Yes - Past Social History Smoking Status: Never Smoked - CARDIAC Hx Cardiac Disorders: Yes (cardiac arrhythmia) Hx Hypercholesterolemia: Yes Hx Hypertension: Yes - PULMONARY Hx Asthma: Yes - NEUROLOGICAL Hx Neurological Disorder: No - HEENT Hx HEENT Problems: Yes Other/Comment: USES GLASSES FOR READING - RENAL Hx Chronic Kidney Disease: Yes - ENDOCRINE/METABOLIC Hx Endocrine Disorders: Yes Hx Diabetes Mellitus Type 1: Yes - HEMATOLOGICAL/ONCOLOGICAL Hx Blood Disorders: No - INTEGUMENTARY Hx Dermatological Problems: No - MUSCULOSKELETAL/RHEUMATOLOGICAL Hx Musculoskeletal Disorders: Yes Hx Falls: Yes Hx Osteomyelitis: Yes - GASTROINTESTINAL Hx Gastrointestinal Disorders: Yes Other/Comment: RECTAL POLYP - GENITOURINARY/GYNECOLOGICAL Hx Genitourinary Disorders: No - PSYCHIATRIC Hx Depression: Yes Hx Substance Use: No - SURGICAL HISTORY Hx Surgeries: Yes Other/Comment: BREAST REDUCTION 1990, MICAELA HERNADEZ 1990 - ANESTHESIA Hx Anesthesia: Yes Hx Anesthesia Reactions: No Hx Malignant Hyperthermia: No Meds Allergies/Adverse Reactions: Allergies Allergy/AdvReac Type Severity Reaction Status Date / Time No Known Allergies Allergy Verified 05/16/17 09:30 Physical Exam - Constitutional Appears: Non-toxic, No Acute Distress - Head Exam Head Exam: NORMAL INSPECTION - Eye Exam Eye Exam: Normal appearance Pupil Exam: NORMAL ACCOMODATION - ENT Exam ENT Exam: Mucous Membranes Moist - Neck Exam Neck exam: Positive for: Normal Inspection - Respiratory Exam Respiratory Exam: Clear to Auscultation Bilateral - Cardiovascular Exam Cardiovascular Exam: REGULAR RHYTHM - GI/Abdominal Exam GI & Abdominal Exam: Normal Bowel Sounds - Rectal Exam Rectal Exam: NORMAL INSPECTION - Exam Exam: NORMAL INSPECTION - Extremities Exam Extremities exam: Positive for: normal inspection - Back Exam Back exam: NORMAL INSPECTION - Neurological Exam Neurological exam: Alert, Oriented x3 - Psychiatric Exam Psychiatric exam: Normal Affect - Skin Skin Exam: Normal Color Results - Vital Signs Recent Vital Signs: Last Vital Signs Temp 98.5 F 03/22/18 07:00 Pulse 72 03/22/18 07:00 Resp 18 03/22/18 07:00 BP 150/72 03/22/18 10:00 Pulse Ox 95 03/22/18 07:00 - Labs Result Diagrams: 03/20/18 22:11 03/20/18 22:11 Labs: Laboratory Results - last 24 hr 03/21/18 03/21/18 03/21/18 06:19 11:23 17:29 POC Glucose (mg/dL) 102 108 111 H 03/21/18 21:37 POC Glucose (mg/dL) 101 Assessment & Plan - Assessment and Plan (Free Text) Assessment: acute numness r foot acut brain infarction cva Plan: pt and med neuro consult - Date & Time Date: 03/22/18 Time: 11:36
--- NOTE | 2018-03-22 21:56 | PN ---
DATE: 03/22/2018 SUBJECTIVE: The patient is seen. The patient is seen with family. The patient is more alert. She states that she slept last night. despite her dose of Ambien was reduced to 5 mg po hs . Patient is eating better. MEDICATIONS: On review of her meds, the patient was started by Neurology with Prozac, but the patient has been maintained for years with Sertraline 50 mg daily as prescribed by Dr. Muñoz. There is no need for the patient to change the antidepressant at this time. The patient may need to continue her sertraline which she has been taking for many years, instead of changing to a different antidepressant. We will put her back on sertraline and discontinue the Prozac. The patient as stated has been taking the Sertraline for years, at least 3 years. PHYSICAL EXAMINATION: VITAL SIGNS: Temperature is 98.5, pulse rate is 72, blood pressure 150/72, respirations 18, oxygen saturation is 95%. REVIEW OF SYSTEMS: GENERAL: The patient is more alert, verbal, seen in her room, seen with family members, conversing in Angolan. SKIN: No diaphoresis. HEENT: No headache or dizziness. NECK: Supple. RESPIRATORY: No dyspnea. CARDIOVASCULAR: No chest pain. GASTROINTESTINAL: Appetite is improving. EXTREMITIES: Not complaining of numbness. MUSCULOSKELETAL: Feels weak. NEURO: Alert and oriented x3. GENITOURINARY: No dysuria. MENTAL STATUS EXAMINATION: An elderly female, oriented x3, less confused. Speech: She is conversing in Angolan. Affect is reactive. Mood is dysphoric. Thought process, coherent. Thought content, no psychosis. No suicidal or homicidal ideation. No new complaints noted. Attention and memory seem to be fair. Insight and judgment fair. Impulse control is fair. IMPRESSION: History of recurrent depression, anxiety, as well as acute cerebrovascular accident. PLAN AND RECOMMENDATIONS: The patient is seen, meds reviewed. May continue the Ambien 5 mg at bedtime for insomnia. The patient has chronic insomnia. We will discontinue the Prozac and put her back on Zoloft 50 mg daily, this is her maintenance dose for many years. As stated, there is no need to change to antidepressant at this time. Rudy Skinner MD [facility] # [id number] SUSANA
[2018-03-23 08:42] VITALS: RESP 20
[2018-03-23] MEDS: Sodium Chloride 0.9% 1,000 ML IV SCH ×3 (10:15→22:46)
[2018-03-23] MEDS: diltiaZEM 180 mg/24 Hours CD Cap PO SCH (11:10)
--- NOTE | 2018-03-23 17:56 | PN ---
DATE: 03/23/2018 SUBJECTIVE: The patient is more alert, verbal today. She is expressing desire to go home. The patient was conversing in Georgian and with her family. She states she is looking better and eating better. No signs or symptoms of depression. The patient is currently on Zoloft 50 mg daily and Ambien 5 mg at bedtime. The patient is not complaining of numbness of her lower extremities, she says she can walk. No speech problems. She feels better today. PHYSICAL EXAMINATION: VITAL SIGNS: Temp 98.1, pulse 82, blood pressure 149/80, respirations 20, oxygen saturation 94%. REVIEW OF SYSTEMS: GENERAL: The patient is alert, oriented x3, conversing in Georgian. Seen in her room. She says she wants to go home. Seen family members at bedside. SKIN: No pruritus. HEENT: No headache. No blurring of vision or dizziness. NECK: Supple. RESPIRATORY: No dyspnea. CARDIOVASCULAR: No chest pain. GASTROINTESTINAL: Appetite is improving. The patient was taking chicken soup. EXTREMITIES: No numbness. The patient according to the family is ambulating better. No tremors. Debility improving. NEUROLOGIC: Alert and oriented x3. The patient is not having any speech problems. MENTAL STATUS EXAMINATION: An elderly female, who looks her age, oriented x3. Mood is brighter. Affect is reactive. Speech spontaneous. Thought process, coherent. Thought content, the patient wants to go home. She says she is feeling much better. No psychosis. No suicidal or homicidal ideation. I did tell her that she will need clearance from the urologist as well as also from the attending to go home. Psych bustillo, the patient is clear to go home once cleared by Neuro and once cleared by her primary care attending. The patient can follow up with Dr. Muñoz for her psych meds. No psychosis. No suicidal or homicidal ideation. Attention and memory seem to be fair. Insight and judgment fair. Impulse control is fair. IMPRESSION: History of major depression as well as anxiety, history of cerebrovascular accident stable. PLAN AND RECOMMENDATIONS: The patient is seen, meds reviewed. Psych bustillo, the patient is stable to be discharged to home with family. May continue her sertraline 50 mg daily and Ambien 5 mg at bedtime. The patient can follow up with Dr. Muñoz once released from the hospital. At this time, the patient needs neuro clearance as well as medical clearance from her attending. According to the family Dr. Virgen will be . Rudy Skinner MD MTDShahab
[2018-03-24] MEDS: diltiaZEM 180 mg/24 Hours CD Cap PO SCH (13:54)
--- NOTE | 2018-03-24 14:29 | VASCLAB ---
Date of service: 03/21/2018 PROCEDURE: Carotid Duplex Exam. HISTORY: TIA R/O SEIZURE COMPARISON: None available. TECHNIQUE: Grayscale and duplex Doppler evaluation of the cervical carotid and vertebral arteries were performed. The common carotid, carotid bifurcations and cervical Internal Carotid Artery (ICA) and proximal External Carotid Artery (ECA) were evaluated. The vertebral arteries were evaluated for gross patency and flow direction. Report prepared by Taz Magana, BS, RVT FINDINGS: RIGHT CAROTID ARTERIES: 1. Common Carotid Artery: No significant focal plaque formation of the right common carotid artery. Maximum Peak Systolic velocity: 95 cm/sec: End-diastolic velocity 26 cm/sec. 2. Carotid Bifurcation: Calcific plaque formation. Maximum Peak Systolic velocity: 78 cm/sec: End-diastolic velocity 15 cm/sec. 3. Internal Carotid Artery: Plaque description: 3.1. Proximal Segment: Peak systolic velocity 76 cm/sec: End-diastolic velocity 17 cm/sec - % stenosis 0-15% 3.2. Middle Segment: Peak systolic velocity 63 cm/sec: End-diastolic velocity 17 cm/sec - % stenosis 0-15% 3.3. Distal Segment: Peak systolic velocity 58 cm/sec: End-diastolic velocity 14 cm/sec - % stenosis 0-15% 4. External Carotid Artery: No significant focal plaque formation. Peak systolic velocity 95 cm/sec 5. ICA/CCA Ratio: 0.8 LEFT CAROTID ARTERIES: 1. Common Carotid Artery: No significant focal plaque formation of the left common carotid artery. Maximum Peak Systolic velocity: 68 cm/sec: End-diastolic velocity 15 cm/sec. 2. Carotid Bifurcation: Calcific plaque formation. Maximum Peak Systolic velocity: 75 cm/sec: End-diastolic velocity 11 cm/sec. 3. Internal Carotid Artery: Plaque description: 3.1. Proximal Segment: Peak systolic velocity 82 cm/sec: End-diastolic velocity 27 cm/sec - % stenosis 0-15% 3.2. Middle Segment: Peak systolic velocity 121 cm/sec: End-diastolic velocity 19 cm/sec - % stenosis 0-15% 3.3. Distal Segment: Peak systolic velocity 117 cm/sec: End-diastolic velocity 37 cm/sec - % stenosis 0-15% 4. External Carotid Artery: No significant focal plaque formation. Peak systolic velocity 75 cm/sec 5. ICA/CCA Ratio: 1.8 VERTEBRAL ARTERIES: 1. Right Vertebral Artery: The right vertebral artery flow direction is antegrade. 2. Left Vertebral Artery: The left vertebral artery flow direction is antegrade. OTHER FINDINGS: 1. Right Brachial Blood pressure: 146 mmHg. 2. Left Brachial Blood pressure: 130 mmHg. IMPRESSION: RIGHT: Duplex scan does not suggest hemodynamically significant stenosis of the right extracranial carotid arteries. LEFT: Duplex scan does not suggest hemodynamically significant stenosis of the left extracranial carotid arteries.
[2018-03-24] MEDS: Sodium Chloride 0.9% 1,000 ML IV SCH (15:09)
--- NOTE | 2018-03-24 17:13 | PN ---
DATE: 03/24/2018 SUBJECTIVE: The patient has been medically cleared by Dr. Boswell to go home. Psych bustillo, she is stable and back to baseline. The patient is currently on Zoloft 50 mg daily and Ambien 5 mg at bedtime. The patient is to follow up with Dr. Muñoz, who is her primary care doctor outside for aftercare. The patient's family also report that the patient goes to [facility] day program. The patient was earlier recommended by PT for inpatient subacute rehab, but the patient is refusing. The patient may have outpatient rehab and may get physical therapy. She may just need prescription for how to get physical therapy at the day program with [facility] where the patients get outpatient physical therapy. The patient is to continue her Ambien as well as the sertraline 50 mg at bedtime. The patient seems to be sleeping better at 5 mg at bedtime of Ambien and we will just keep the current dose instead of 10, which she was taking outside. PHYSICAL EXAMINATION: VITAL SIGNS: Temperature is 98.1, pulse rate is 77, blood pressure 150/85, respirations 20, oxygen saturation is 96%. REVIEW OF SYSTEMS: GENERAL: The patient is alert, oriented x2, seen with family, conversing in Greek, back to baseline. SKIN: No diaphoresis. HEENT: No headache. No dizziness. NECK: Supple. RESPIRATORY: No dyspnea. CARDIOVASCULAR: No chest pain. GASTROINTESTINAL: No nausea or vomiting. EXTREMITIES: The patient is ambulatory, but gait is unsteady at times, needs assistance. MUSCULOSKELETAL: Feels weak. NEURO: Alert and oriented x3. The patient has no gross neurological deficit from her stroke. MENTAL STATUS EXAMINATION: An elderly female, seen in her room, alert, verbal and oriented x3. Mood is calm. Affect is reactive. Speech spontaneous. Thought process, coherent. Thought content, the patient is thinking about going home. No psychosis. No suicidal or homicidal ideation. Attention and memory seem to be fair. Insight and judgment fair. Impulse control is fair. IMPRESSION: History of recurrent depression, anxiety, as well as history of cerebrovascular accident improving. PLAN AND RECOMMENDATIONS: The patient is seen, meds reviewed. Psych bustillo, again the patient is stable to go home to her family and to follow up with Dr. Muñoz. I do suggest that the patient can benefit from outpatient physical rehab in the day program with [facility] as well as to continue her current psych meds. The patient seems to be sleeping better with Ambien 5 mg at bedtime and sertraline 50 mg daily. I do suggest to keep the lower dose of Ambien especially as the patient is elderly. She was taking 10 mg at bedtime before and it was lowered here in the hospital, but the patient is sleeping better. Being an elderly patient, she would benefit from lower dose of Ambien for chronic insomnia. Rudy Skinner MD
[2018-03-25 07:54] VITALS: TEMP 98.5; O2SAT 94
[2018-03-25 09:14] VITALS: PULSE 94
[2018-03-25] MEDS: diltiaZEM 180 mg/24 Hours CD Cap PO SCH (09:57)
[2018-03-25 10:01] VITALS: BP 119/76
--- NOTE | 2018-03-25 10:54 | CP.PCM.CON ---
History of Present Illness - History of Present Illness History of Present Illness: Patient reported to have the following per review of documentation: Daughter at bedside This is an 82-year-old female came to the ED for left lower extremity weakness and pain. Per patients daughter, the patient was initially brought to [facility], where she a CT of lower extremity was obtained, after which the patient was discharged. Patient was still complaining of left leg pain during the day. However, patients daughter states that the patient began choking on her dinner, which prompted her to call EMS who brought the patient to [facility] ED around 8:45-9:00PM. Per patients daughter, the patient was slurring her words and was staring into "space, but returned to baseline on the way to the ED. While in the ED, the patient was somewhat confused, slow to respond, but moving all extremities. Patient denies chest pain, headache, shortness of breath, vision changes, and/or dizziness. Code stroke was called: - CT head without contrast was obtained stat, which was unremarkable for intracranial abnormalities. - MRI brain official report: acute infarct of right temporal lobe extending superiorly into right parietal operculum and right temporal parietal watershed zone. A few tiny chronic appearing lacunar type infarct scattered about cerebellar hemisphere is and possibly both basal nuclei. - Carotid U/S: no hemodynamically significant stenosis, midl palque at the BULB B/L Past medical history: asthma, afib, depression, hypertension, hypercholesterolemia, colon polyps hx of GI bleed reported per daughter. Cardiac: AFIB dx'd 1 year ago, no NE, non-smoker Review of Systems - Review of Systems All systems: reviewed and no additional remarkable complaints except Past Patient History - Past Medical History & Family History Past Medical History?: Yes - Past Social History Smoking Status: Never Smoked - CARDIAC Hx Cardia Arrhythmia: Yes Hx Hypercholesterolemia: Yes Hx Hypertension: Yes - PULMONARY Hx Asthma: Yes - NEUROLOGICAL Hx Neurological Disorder: No - HEENT Hx HEENT Problems: Yes Other/Comment: USES GLASSES FOR READING - RENAL Hx Chronic Kidney Disease: Yes - ENDOCRINE/METABOLIC Hx Endocrine Disorders: Yes Hx Diabetes Mellitus Type 1: Yes - HEMATOLOGICAL/ONCOLOGICAL Hx Blood Disorders: No - INTEGUMENTARY Hx Dermatological Problems: No - MUSCULOSKELETAL/RHEUMATOLOGICAL Hx Musculoskeletal Disorders: Yes Hx Falls: Yes Hx Osteomyelitis: Yes - GASTROINTESTINAL Hx Gastrointestinal Disorders: Yes Other/Comment: RECTAL POLYP - GENITOURINARY/GYNECOLOGICAL Hx Genitourinary Disorders: No - PSYCHIATRIC Hx Depression: Yes Hx Substance Use: No - SURGICAL HISTORY Hx Surgeries: Yes Other/Comment: BREAST REDUCTION 1990, MICAELA HERNADEZ 1990 - ANESTHESIA Hx Anesthesia: Yes Hx Anesthesia Reactions: No Hx Malignant Hyperthermia: No Meds Allergies/Adverse Reactions: Allergies Allergy/AdvReac Type Severity Reaction Status Date / Time No Known Allergies Allergy Verified 05/16/17 09:30 - Medications Medications: Current Medications Acetaminophen (Tylenol 325mg Tab) 650 mg PO Q6 PRN PRN Reason: Headache Last Admin: 03/22/18 06:46 Dose: 650 mg Aspirin (Ecotrin) 81 mg PO DAILY [facility] Last Admin: 03/25/18 09:57 Dose: 81 mg Carvedilol (Coreg) 25 mg PO BID [facility] Last Admin: 03/25/18 09:59 Dose: 25 mg Clopidogrel Bisulfate (Plavix) 75 mg PO DAILY [facility] Last Admin: 03/25/18 09:57 Dose: 75 mg Diltiazem HCl (Cardizem Cd) 180 mg PO DAILY [facility] Last Admin: 03/25/18 09:57 Dose: 180 mg Ergocalciferol (Drisdol 50,000 Intl Units Cap) 1 cap PO QWK [facility] Home Med (Febuxostat [Uloric]) 40 mg PO DAILY [facility] Last Admin: 03/25/18 09:57 Dose: 40 mg Sertraline HCl (Zoloft) 50 mg PO DAILY [facility] Last Admin: 03/25/18 09:57 Dose: 50 mg Sitagliptin Phosphate (Januvia) 50 mg PO DAILY [facility] Last Admin: 03/25/18 09:57 Dose: 50 mg Zolpidem Tartrate (Ambien) 5 mg PO HS [facility] Last Admin: 03/24/18 21:49 Dose: 5 mg Physical Exam - Constitutional Appears: No Acute Distress, Chronically Ill - Head Exam Head Exam: ATRAUMATIC, NORMAL INSPECTION, NORMOCEPHALIC - Eye Exam Eye Exam: EOMI, Normal appearance - ENT Exam ENT Exam: Mucous Membranes Moist, Normal Oropharynx - Neck Exam Neck exam: Positive for: Normal Inspection. Negative for: Tenderness - Respiratory Exam Respiratory Exam: Clear to Auscultation Bilateral, NORMAL BREATHING PATTERN. absent: Rhonchi, Wheezes - Cardiovascular Exam Cardiovascular Exam: Irregular Rhythm, +S1, +S2. absent: Systolic Murmur - GI/Abdominal Exam GI & Abdominal Exam: Normal Bowel Sounds, Soft. absent: Tenderness - Extremities Exam Extremities exam: Negative for: calf tenderness, normal inspection, pedal edema - Neurological Exam Neurological exam: Alert, Oriented x3 - Psychiatric Exam Psychiatric exam: Normal Affect, Normal Mood - Skin Skin Exam: Normal Color, Warm Results - Vital Signs Recent Vital Signs: Last Vital Signs Temp 98.5 F 03/25/18 07:00 Pulse 94 H 03/25/18 08:00 Resp 20 03/25/18 07:00 BP 119/76 03/25/18 09:59 Pulse Ox 94 L 03/25/18 07:00 - Labs Result Diagrams: 03/20/18 22:11 03/20/18 22:11 Labs: Laboratory Results - last 24 hr 03/24/18 03/24/18 03/24/18 06:08 11:07 16:42 POC Glucose (mg/dL) 118 H 143 H 92 03/24/18 03/25/18 21:28 06:27 POC Glucose (mg/dL) 96 119 H Assessment & Plan - Assessment and Plan (Free Text) Assessment: 82 y/o with daughter at bedside 1. Presented with acute CVA seen by neuro 2. Documented AFIB < 120's on TELE and EKG ; Per patient daughter initially told of AFIB around 1 year ago during colonoscopy 3. HTN, DM, Normal creatinine 4. Hx of colon polyps, hemmorhoids and reported GI bleed in past with active polyps not yet evaluated recently. ECHO directly seen by me: Normal LVEF, grade 2 diastolic dysfunction, LVH, mild MAC, moderate pulm HTN 53 mmHg, mild AI, mild MR, Mild-mod TR and LAE. EKG: AFIB Other EKG: NSR, no acute ischemic changes Based on the above patient has a [id number] score > 3 suggesting greater benefit from stroke risk reduction with NOAC > However given hx of GI bleed and concern for active polyps this would pose ris k, I have discussed this with family (patient and daughter) and we have agreed to continue ASA/plavix and patient wants to get a GI eval as outpatient to assess bleed risk. Given recent TIA/CVA > cont ASA/plavix /statin for now; Patient and family are aware of inferiority of this plan for stroke risk reduction. > cont coreg 25 BID, and diltiazem 180 daily for rate control > GI evaluation should be done as outpatient > f/u neuro recc as far as clearance for NOAC as outpatient as they refused re hab. If ok then d/c plavix and start eliquis 5 BID with ASA and statin. F/U with me in 1 week. - Date & Time Date: 03/25/18 Time: 11:44
--- NOTE | 2018-03-25 13:00 | CP.PCM.PN ---
Subjective - Date & Time of Evaluation Date of Evaluation: 03/25/18 Time of Evaluation: 13:00 - Subjective Subjective: -FOLLOW UP WITH DR. TRINIDAD, YOUR PRIMARY DOCTOR, IN THE OFFICE WITHIN 5-7 DAYS---CALL THE OFFICE TO MAKE YOUR APPOINTMENT. -YOU NEED TO FOLLOW UP WITH DR. KU, YOUR STOMACH DOCTOR, TO DISCUSS YOUR RISK VERSUS BENEFITS OF STARTING AN ORAL BLOOD THINNER TO TREAT YOUR A-FIB. SINCE YOU HAVE A HISTORY OF POLYPS AND HEMORRHOIDS, IT IS IMPORTANT THAT YOU SEE A STOMACH DOCTOR TO GET AN "OK" FROM THEM TO START THESE BLOOD THINNERS. -FOLLOW UP WITH DR. ROGERS (HEART DOCTOR) IN THE OFFICE IN 1 WEEK. -CONTINUE HOME MEDICATIONS USUAL, INCLUDING YOUR ASPIRIN AND PLAVIX---TAKE BOTH OF THESE ONCE A DAY EVERY DAY. -ALSO, CONTINUE THE TWO MEDICATIONS FOR YOUR AFIB: CARVEDILOL (TAKE 2 TIMES A DAY---MORNING AND EVENING); AND DILTIAZEM (TAKE ONCE A DAY IN THE MORNING). -YOUR CHOLESTEROL MEDICATION HAS BEEN REFILLED AND IT WILL HELP TREAT YOUR STROKE---ATORVASTATIN---TAKE 1 TABLET BY MOUTH AT BEDTIME EVERY NIGHT. -FOLLOW UP WITH DR. EMMANUEL IN THE OFFICE WITHIN 1-2 WEEKS. -FOR FURTHER CONCERNS OR QUESTIONS ABOUT YOUR HOSPITAL STAY, CONTACT DR. LYON'S OFFICE. Objective - Vital Signs/Intake and Output Vital Signs (last 24 hours): Temp Pulse Resp BP Pulse Ox 98.5 F 94 H 20 119/76 94 L 03/25/18 07:00 03/25/18 08:00 03/25/18 07:00 03/25/18 09:59 03/25/18 07:00 - Medications Medications: Current Medications Acetaminophen (Tylenol 325mg Tab) 650 mg PO Q6 PRN PRN Reason: Headache Last Admin: 03/22/18 06:46 Dose: 650 mg Aspirin (Ecotrin) 81 mg PO DAILY [facility] Last Admin: 03/25/18 09:57 Dose: 81 mg Carvedilol (Coreg) 25 mg PO BID [facility] Last Admin: 03/25/18 09:59 Dose: 25 mg Clopidogrel Bisulfate (Plavix) 75 mg PO DAILY [facility] Last Admin: 03/25/18 09:57 Dose: 75 mg Diltiazem HCl (Cardizem Cd) 180 mg PO DAILY [facility] Last Admin: 03/25/18 09:57 Dose: 180 mg Ergocalciferol (Drisdol 50,000 Intl Units Cap) 1 cap PO QWK [facility] Home Med (Febuxostat [Uloric]) 40 mg PO DAILY [facility] Last Admin: 03/25/18 09:57 Dose: 40 mg Sertraline HCl (Zoloft) 50 mg PO DAILY [facility] Last Admin: 03/25/18 09:57 Dose: 50 mg Sitagliptin Phosphate (Januvia) 50 mg PO DAILY [facility] Last Admin: 03/25/18 09:57 Dose: 50 mg Zolpidem Tartrate (Ambien) 5 mg PO HS [facility] Last Admin: 03/24/18 21:49 Dose: 5 mg - Labs Labs: 03/20/18 22:11 03/20/18 22:11 PT 12.0 SECONDS (9.7-12.2) 03/20/18 22:11 INR 1.1 03/20/18 22:11 APTT 32 SECONDS (21-34) 03/20/18 22:11
--- NOTE | 2018-03-25 19:39 | CARD ---
APPROVED REPORT Date of service: 03/25/2018 EXAM: Two-dimensional and M-mode echocardiogram with Doppler and color Doppler. Other Information Quality : GoodRhythm : INDICATION CVA/TIA Atrial Fibrillation 2D DIMENSIONS IVSd1.0 (0.7-1.1cm)LVDd4.0 (3.9-5.9cm) PWd0.9 (0.7-1.1cm)LA Fmezao76 (18-58mL) LVDs1.9 (2.5-4.0cm)FS (%) 51.7 % LVEF (%)83.3 (>50%)LVEF (Camilo's)68.18 % M-Mode DIMENSIONS Left Atrium (MM)4.92 (2.5-4.0cm)IVSd1.12 (0.7-1.1cm) Aortic Root3.30 (2.2-3.7cm)LVDd3.73 (4.0-5.6cm) Aortic Cusp Exc.2.05 (1.5-2.0cm)PWd0.93 (0.7-1.1cm) FS (%) 48 %LVDs1.96 (2.0-3.8cm) LVEF (%)80 (>50%) Aortic Valve AI P 1/2 Pliz507fv Mitral Valve MV E Ffkusiai752.5cm/sE/A ratio0.0 TDI Lateral E' Peak V8.09cm/sMedial E' Peak V7.13cm/sE/Lateral E'16.9 E/Medial E'19.1 Tricuspid Valve TR Peak Uvyafqwo840ms/sTR Peak Gr.60opZlSBYP32jdIa LEFT VENTRICLE The left ventricle is normal size. There is borderline concentric left ventricular hypertrophy. The Ejection Fraction is 65-70%. There is normal LV segmental wall motion. poss a,fib,dilated la,pulmonary htn,elevated la pressures & la volume index is suggestive of moderate degree of lv diastolic dysfunction. RIGHT VENTRICLE The right ventricle is normal size. The right ventricular systolic function is normal. ATRIA The left atrium is moderately dilated. The right atrium size is normal. The interatrial septum is intact with no evidence for an atrial septal defect. AORTIC VALVE The aortic valve is moderately calcified. The aortic valve is trileaflet. There is mild aortic regurgitation. MITRAL VALVE The mitral valve is calcified but opens well. Mitral annular calcification is mild to moderate. Mitral regurgitation is mild. TRICUSPID VALVE The tricuspid valve is normal in structure. There is mild tricuspid regurgitation. Right ventricular systolic pressure is estimated at 55 mmHg. There is moderate pulmonary hypertension. PULMONIC VALVE The pulmonary valve is normal in structure. There is mild pulmonic valvular regurgitation. GREAT VESSELS The aortic root is normal size. The aortic root displays mild sclerocalcific changes of the aortic root. The IVC is normal in size and collapses >50% with inspiration. PERICARDIAL EFFUSION There is no pericardial effusion. <Conclusion> The left ventricle is normal size. There is borderline concentric left ventricular hypertrophy. The Ejection Fraction is 65-70%. poss a,fib,dilated la,pulmonary htn,elevated la pressures & la volume index is suggestive of moderate degree of lv diastolic dysfunction. The left atrium is moderately dilated. The aortic valve is moderately calcified. The aortic valve is trileaflet. There is mild aortic regurgitation. The mitral valve is calcified but opens well. Mitral annular calcification is mild to moderate. Mitral regurgitation is mild. There is mild tricuspid regurgitation. Right ventricular systolic pressure is estimated at 55 mmHg. There is moderate pulmonary hypertension. The aortic root is normal size. The aortic root displays mild sclerocalcific changes of the aortic root. The IVC is normal in size and collapses >50% with inspiration. There is no pericardial effusion.
--- NOTE | 2018-03-25 20:20 | CARD ---
APPROVED REPORT Date of service: 03/24/2018 EKG Measurement Heart [id number] <Conclusion> Atrial fibrillation with rapid ventricular response Nonspecific T wave abnormality Abnormal ECG
--- NOTE | 2018-03-26 12:24 | PCM.EEG ---
Electroencephalogram Report - Electroencephalogram Report Procedure Date: 03/24/18 Condition of Recording: Awake, Drowsy, Asleep Medication: Tylenol, Coreg, Keppra, ativan. Interpretation: Technical Information: This was a 16 -channel EEG, 1-channel EKG routine EEG performed using [employer] equipment. Electrodes were applied using the 10/20 international placement system. During active states, the EEG contained symmetric 10-20 Hz,20-30 uV activity seen bi-frontally. . During resting wakefulness there was a symmetric posterior dominant rhythm at 8.5-9.5 Hz, 30-50 uV, which was reactive to eye opening and closing. . Drowsiness was associated with fragmentation of the posterior dominant rhythm and with slow roving eye movements. Light sleep was recorded and was characterized by sleep spindles, and bilateral theta slowing. Hyperventilation was not performed. Photic stimulation was performed and there were no changes on the record. Focal abnormality; none ECG was associated with a normal sinus rhythm. Impression: This is a normal awake drowsy and sleep electroencephalogram.
--- NOTE | 2018-03-27 07:20 | DS ---
The patient is a 82-year-old female, admitted with a chief complaint of seizure, weakness and ____ CVA. The patient was placed on bedrest, supportive care. The patient cleared to go home with home service. The patient will be discharged to home with physical therapy. Bart Boswell MD
[2018-03-28] MEDS ORDERED: Ergocalciferol 50,000 Intl Units Cap PO SCH (10:00)
== END 2018-03-25 15:13 | disposition home or self-care (01) | DRG 65 ==
LOC: C.ER 21:46 → C.9E 03-21 01:15 → C.6T 03-21 02:19
PROVIDERS: ADMIT Internal Medicine; ATTEND Internal Medicine
DX: I63.9 Cerebral infarction, unspecified (principal); G40.89 Other seizures; F33.9 Major depressive disorder, recurrent, unspecified; I12.9 Hypertensive chronic kidney disease with stage 1 through stage 4 chronic kidney disease, or unspecified chronic kidney disease; E11.22 Type 2 diabetes mellitus with diabetic chronic kidney disease; N18.9 Chronic kidney disease, unspecified; I65.22 Occlusion and stenosis of left carotid artery; I27.20 Pulmonary hypertension, unspecified; I48.91 Unspecified atrial fibrillation; R41.0 Disorientation, unspecified; J45.909 Unspecified asthma, uncomplicated; F41.9 Anxiety disorder, unspecified; E78.00 Pure hypercholesterolemia, unspecified; Z79.84 Long term (current) use of oral hypoglycemic drugs; Z79.899 Other long term (current) drug therapy; Z86.010 Personal history of colon polyps; Z86.73 Personal history of transient ischemic attack (TIA), and cerebral infarction without residual deficits; Z87.19 Personal history of other diseases of the digestive system; Z79.82 Long term (current) use of aspirin

== ENCOUNTER 2018-07-01 18:32 | Emergency (ER) | payer MEDICARE, MEDICAID ==
[2018-07-01 18:32] VITALS: BMI 28.9
[2018-07-01 18:54] VITALS: RESP 18
[2018-07-01] MEDS ORDERED: Pantoprazole 80 MG in Sodium Chloride 0.9% 100 ML IV STA (19:57)
--- NOTE | 2018-07-01 19:57 | C.PDOC ---
History Of Present Illness Patient presents to the ER from adult daycare for rectal bleeding. Patient has a Hx of hemorrhoids and had a little bleeding while at daycare. Denies rectal pain, fever, or chills. Time Seen by Provider: 07/01/18 19:40 Chief Complaint (Nursing): GI Problem History Per: Patient History/Exam Limitations: no limitations Onset/Duration Of Symptoms: Hrs Current Symptoms Are (Timing): Still Present Recent travel outside of the [place]: No Past Medical History Reviewed: Historical Data, Nursing Documentation, Vital Signs Vital Signs: Last Vital Signs Temp 98.1 F 07/01/18 18:51 Pulse 76 07/01/18 18:51 Resp 18 07/01/18 18:51 BP 130/86 07/01/18 18:51 Pulse Ox 100 07/01/18 18:51 - Medical History PMH: Asthma, Cardia Arrhythmia, Depression, HTN, Hypercholesterolemia, Chronic Kidney Disease - [facility] Procedures RESECTION OF RECTUM, OPEN APPROACH (05/27/17) Family History: States: Unknown Family Hx - Social History Hx Alcohol Use: No Hx Substance Use: No Review Of Systems Constitutional: Negative for: Fever, Chills Cardiovascular: Negative for: Chest Pain, Palpitations, Light Headedness Respiratory: Negative for: Cough, Shortness of Breath Gastrointestinal: Positive for: Other (Rectal bleeding). Negative for: Nausea, Vomiting, Rectal Pain Neurological: Negative for: Weakness, Numbness, Dizziness Physical Exam - Physical Exam Appears: Non-toxic Skin: Warm, Dry Head: Normacephalic Oral Mucosa: Moist Chest: Symmetrical, No Tenderness Cardiovascular: Rhythm Regular Respiratory: No Rales, No Rhonchi, No Wheezing Gastrointestinal/Abdominal: Soft, No Tenderness, Other (RN present) Rectal: Other (Small rectal fissure/tear not actively bleeding. Small external nonthrombosed hemorrhoid.) Neurological/Psych: Oriented x3 ED Course And Treatment - Laboratory Results Result Diagrams: 07/01/18 20:08 07/01/18 20:08 O2 Sat by Pulse Oximetry: 100 (Room air) Pulse Ox Interpretation: Normal Progress Note: Blood work and occult blood test ordered. Protonix administered. Reevaluation Time: 21:03 Reassessment Condition: Improved Medical Decision Making Medical Decision Making: Upon provider reevaluation patient is feeling better, is medically stable, and requires no further treatment in the ED at this time. Patient will be discharged home with Rx for anusol hc and miralax. Counseling was provided and all questions were answered regarding diagnosis and need for follow up withdr chang. There is agreement to discharge plan. Return if symptoms persist or worsen. Disposition Counseled Patient/Family Regarding: Studies Performed, Diagnosis, Need For Followup, Rx Given - Disposition Referrals: Erickson Chang MD [Medical Doctor] - Disposition: HOME/ ROUTINE Disposition Time: 19:56 Condition: FAIR Additional Instructions: Por favor regrese si los sntomas recurren. Prescriptions: Hydrocortisone 2.5% (Rectal) [Anusol-HC] 30 applic NC BID #1 tube Polyethylene Glycol 3350 [Miralax] 17 gm PO DAILY #270 ml Instructions: Hemorrhoids (DC) Forms: [employer] (Hungarian) Print Language: GERMAN - Clinical Impression Clinical Impression: Hemorrhoids, Rectal fissure - Scribe Statement The provider has reviewed the documentation as recorded by the Scribflorence De La Fuente All medical record entries made by the Erwinibflorence were at my direction and personally dictated by me. I have reviewed the chart and agree that the record accurately reflects my personal performance of the history, physical exam, medical decision making, and the department course for this patient. I have also personally directed, reviewed, and agree with the discharge instructions and disposition.
[2018-07-01 20:11] LABS: BASO # 0.1 K/uL (0.0-0.2); BASO % 0.7 % (0.0-2.0); EOS % 0.5 % (0.0-4.0); HEMOGLOBIN 12.3 g/dL (11.0-16.0); LYMPH # 1.4 K/uL (1.0-4.3); LYMPH % 13.3 % (20.0-40.0); MEAN CORPUSCULAR HEMOGLOBIN 28.3 pg (27.0-31.0); MEAN CORPUSCULAR HGB CONC 31.7 g/dL (33.0-37.0); MEAN PLATELET VOLUME 7.8 fL (7.2-11.7); MONO # 1.5 K/uL (0.0-0.8); MONO % 13.9 % (0.0-10.0); NEUT # 7.5 K/uL (1.8-7.0); NEUT % 71.6 % (50.0-75.0); RBC 4.35 Mil/uL (3.80-5.20); RED CELL DISTRIBUTION WIDTH 14.6 % (11.5-14.5); WHITE BLOOD COUNT 10.5 K/uL (4.8-10.8)
[2018-07-01 20:27] LABS: MEAN CELL VOLUME 89.1 fL (81.0-99.0)
[2018-07-01 20:28] LABS: INR 1.5; PROTHROMBIN TIME 16.6 SECONDS (9.7-12.2)
[2018-07-01 20:32] LABS: ALB/GLOB RATIO 1.3 (1.0-2.1); ALBUMIN 3.7 g/dL (3.5-5.0); CALCIUM 9.3 mg/dl (8.6-10.4)
[2018-07-01 21:23] VITALS: BP 145/81; PULSE 98; TEMP 99.6; O2SAT 96
== END 2018-07-01 21:32 | disposition home or self-care (01) ==
LOC: C.ER 18:32
DX: K64.4 Residual hemorrhoidal skin tags (principal); K60.2 Anal fissure, unspecified
CPT/HCPCS: 80053; 85025; 85610; 85730; 86850; 86900; 96374; 99283; C9113; G0328

== ENCOUNTER 2018-07-04 09:13 | Inpatient (IN) | payer MEDICARE, MEDICAID ==
[2018-07-04 09:14] VITALS: BMI 28.9
[2018-07-04 10:16] LABS: BASO # 0.1 K/uL (0.0-0.2); BASO % 0.8 % (0.0-2.0); EOS # 0.1 K/uL (0.0-0.7); EOS % 1.6 % (0.0-4.0); HEMOGLOBIN 11.7 g/dL (11.0-16.0); LYMPH # 1.3 K/uL (1.0-4.3); LYMPH % 19.4 % (20.0-40.0); MEAN CELL VOLUME 88.8 fL (81.0-99.0); MEAN CORPUSCULAR HEMOGLOBIN 29.1 pg (27.0-31.0); MEAN CORPUSCULAR HGB CONC 32.8 g/dL (33.0-37.0); MEAN PLATELET VOLUME 7.8 fL (7.2-11.7); MONO # 0.8 K/uL (0.0-0.8); MONO % 11.6 % (0.0-10.0); NEUT # 4.4 K/uL (1.8-7.0); NEUT % 66.6 % (50.0-75.0); RBC 4.03 Mil/uL (3.80-5.20); RED CELL DISTRIBUTION WIDTH 14.3 % (11.5-14.5); WHITE BLOOD COUNT 6.6 K/uL (4.8-10.8)
[2018-07-04 10:29] LABS: INR 1.5; PROTHROMBIN TIME 16.6 SECONDS (9.7-12.2)
[2018-07-04 10:43] LABS: ALB/GLOB RATIO 1.2 (1.0-2.1); ALBUMIN 3.5 g/dL (3.5-5.0); ALT/SGPT 22 U/L (9-52); AST/SGOT 21 U/L (14-36); BLOOD UREA NITROGEN 20 mg/dL (7-17); CALCIUM 8.6 mg/dl (8.6-10.4); GFR NON-AFRICAN AMERICAN 53
[2018-07-04 11:04] LABS: SQUAMOUS EPITHIAL 1 /hpf (0-5); URINE BACTERIA MANY (<OCC); URINE BILIRUBIN NEGATIVE (NEGATIVE); URINE BLOOD NEGATIVE (NEGATIVE); URINE CLARITY Hazy (Clear); URINE COLOR Yellow (YELLOW); URINE GLUCOSE (UA) NORMAL (Normal); URINE LEUKOCYTE ESTERASE 1+ Leu/uL (Negative); URINE PROTEIN NEGATIVE (NEGATIVE); URINE UROBILINOGEN NORMAL mg/dL (0.2-1.0)
--- NOTE | 2018-07-04 11:24 | RAD ---
Date of service: 07/04/2018 HISTORY: rectal bleeding COMPARISON: Portable chest 03/20/2018. FINDINGS: LUNGS: Prior linear atelectasis at the right base appears clear. No consolidation bilaterally. PLEURA: No significant pleural effusion identified, no pneumothorax apparent. CARDIOVASCULAR: Calcific atherosclerotic changes are seen related to the thoracic aorta. Mild cardiomegaly again evident. No pulmonary vascular congestion. OSSEOUS STRUCTURES: No significant abnormalities. VISUALIZED UPPER ABDOMEN: Mildly elevated right hemidiaphragm reiterated. OTHER FINDINGS: None. IMPRESSION: No interval acute cardiopulmonary disease appreciated. Mildly elevated right hemidiaphragm reiterated.
--- NOTE | 2018-07-04 11:26 | C.PDOC ---
History Of Present Illness 82 y/o female brought in by family for evaluation of rectal bleeding. Patient has hx of rectal prolapse, surgically repaired in 05/2017. As per daughter, patient has not been taking her laxatives regularly and has some constipation. They noted bleeding from the area today and called Dr. Veloz, who sent patient to the ED. Of note patient is on eliquis and aspirin. Time Seen by Provider: 07/04/18 09:25 Chief Complaint (Nursing): GI Problem History Per: Patient History/Exam Limitations: no limitations Onset/Duration Of Symptoms: Hrs Current Symptoms Are (Timing): Still Present Additional History Per: Family Past Medical History Reviewed: Historical Data, Nursing Documentation, Vital Signs Vital Signs: Last Vital Signs Temp 97.5 F L 07/04/18 09:38 Pulse 76 07/04/18 09:38 Resp 22 07/04/18 09:38 BP 110/46 L 07/04/18 09:38 Pulse Ox 95 07/04/18 09:38 - Medical History PMH: Asthma, Cardia Arrhythmia, Depression, HTN, Hypercholesterolemia, Chronic Kidney Disease, Rheumatoid Arthritis - [facility] Procedures RESECTION OF RECTUM, OPEN APPROACH (05/27/17) Family History: States: Unknown Family Hx - Social History Hx Alcohol Use: No Hx Substance Use: No - Immunization History Hx Tetanus Toxoid Vaccination: No Hx Influenza Vaccination: Yes Hx Pneumococcal Vaccination: No Review Of Systems Constitutional: Negative for: Fever, Chills Cardiovascular: Negative for: Chest Pain, Light Headedness Respiratory: Negative for: Shortness of Breath Gastrointestinal: Positive for: Rectal Pain, Other (rectal prolapse, + bleeding from rectum). Negative for: Nausea, Vomiting, Abdominal Pain, Diarrhea Skin: Negative for: Rash Neurological: Negative for: Weakness, Dizziness Physical Exam - Physical Exam Appears: Non-toxic, No Acute Distress Skin: Warm, Dry Head: Atraumatic, Normacephalic Eye(s): bilateral: Normal Inspection, PERRL, EOMI Neck: Normal ROM Chest: Symmetrical Cardiovascular: Rhythm Regular, No Murmur Respiratory: Normal Breath Sounds, No Accessory Muscle Use Gastrointestinal/Abdominal: Soft, No Tenderness, No Distention, No Guarding Rectal: Other (No obvious prolapse, + blood noted on diaper) Extremity: Bilateral: Atraumatic, Normal Color And Temperature, Normal ROM (x 4) Pulses: Left Dorsalis Pedis: Normal, Right Dorsalis Pedis: Normal Neurological/Psych: Oriented x3, Normal Speech ED Course And Treatment - Laboratory Results Result Diagrams: 07/04/18 10:10 07/04/18 10:07 Lab Results: PT 16.6 SECONDS (9.7-12.2) H 07/04/18 10:10 INR 1.5 07/04/18 10:10 APTT 36 SECONDS (21-34) H 07/04/18 10:10 Total Bilirubin 0.4 mg/dL (0.2-1.3) 07/04/18 10:07 AST 21 U/L (14-36) 07/04/18 10:07 ALT 22 U/L (9-52) 07/04/18 10:07 Alkaline Phosphatase 59 U/L (38-126) 07/04/18 10:07 Total Protein 6.3 g/dL (6.3-8.3) 07/04/18 10:07 Albumin 3.5 g/dL (3.5-5.0) 07/04/18 10:07 Globulin 2.8 gm/dL (2.2-3.9) 07/04/18 10:07 Albumin/Globulin Ratio 1.2 (1.0-2.1) 07/04/18 10:07 Urine Color Yellow (YELLOW) 07/04/18 10:49 Urine Clarity Hazy (Clear) 07/04/18 10:49 Urine pH 5.0 (5.0-8.0) 07/04/18 10:49 Ur Specific [place] 1.013 (1.003-1.030) 07/04/18 10:49 Urine Protein Negative mg/dL (NEGATIVE) 07/04/18 10:49 Urine Glucose (UA) Normal mg/dL (Normal) 07/04/18 10:49 Urine Ketones Negative mg/dL (NEGATIVE) 07/04/18 10:49 Urine Blood Negative (NEGATIVE) 07/04/18 10:49 Urine Nitrate Positive (NEGATIVE) H 07/04/18 10:49 Urine Bilirubin Negative (NEGATIVE) 07/04/18 10:49 Urine Urobilinogen Normal mg/dL (0.2-1.0) 07/04/18 10:49 Ur Leukocyte Esterase 1+ Marsha/uL (Negative) H 07/04/18 10:49 Urine WBC (Auto) 32 /hpf (0-5) H 07/04/18 10:49 Urine RBC (Auto) 1 /hpf (0-3) 07/04/18 10:49 Ur Squamous Epith Cells 1 /hpf (0-5) 07/04/18 10:49 Urine Bacteria Many (<OCC) H 07/04/18 10:49 Hyaline Casts 3-5 /lpf (0-2) H 07/04/18 10:49 O2 Sat by Pulse Oximetry: 95 (RA) Pulse Ox Interpretation: Normal Progress Note: Blood work and urine sent for analysis. Discussed with Dr. Veloz, patient will be taken to the OR for repair. CXR and EKG obtained for admission. Labs reviewed, patient is not anemic. Coags slightly elevated. Patient's daughter at bedside requests that Dr. Boswell take care of patient. - Physician Consult Information Time Consulting Physician Contacted: 11:45 Physician Contacted: Bart Boswell Outcome Of Conversation: Patient accepted for admission Disposition Counseled Patient/Family Regarding: Studies Performed, Diagnosis - Disposition Disposition: HOSPITALIZED Disposition Time: 11:45 Condition: FAIR - Clinical Impression Clinical Impression: Rectal prolapse - PA / DECORATING INSPECTOR / Resident Statement MD/DO has reviewed & agrees with the documentation as recorded. - Scribe Statement The provider has reviewed the documentation as recorded by the Clarke Walker All medical record entries made by the Scribe were at my direction and personally dictated by me. I have reviewed the chart and agree that the record accurately reflects my personal performance of the history, physical exam, medical decision making, and the department course for this patient. I have also personally directed, reviewed, and agree with the discharge instructions and disposition. Decision To Admit - Pt Status Changed To: Hospital Disposition Of: Inpatient - Admit Certification Admit to Inpatient:: After my assessment, the patient will require hospitalization for at least two midnights. This is because of the severity of symptoms shown, intensity of services needed, and/or the medical risk in this patient being treated as an outpatient. - InPatient: Physician Admission Certification: I certify that this patient requires 2 or more midnights of care for the following reason:: Pt will be medically clear and will need OR treatment - . Bed Request Type: Regular Admitting Physician: Bart Boswell Patient Diagnosis: Rectal prolapse
--- NOTE | 2018-07-04 14:15 | CP.PCM.CON ---
History of Present Illness - History of Present Illness History of Present Illness: Surgery consult note for Dr. Veloz. H&P obtained through chart review as patient denied all medical history. 82 F w/ PMhx asthma, afib, depression, hypertension, hypercholesterolemia, colon polyps hx of GI bleed, and rectal prolapse (surgically repaired in 2017) presents to ED for evaluation of rectal bleeding. Patient has not been taking laxatives regularly and has constipation. Patient states she has had irregular bowel movements for the past several days with some blood. Patient denies headaches, vision changes, abdominal pain, nausea, vomiting, fevers, chills, chest pain, lower extremity pain. PMHx: asthma, afib, depression, hypertension, hypercholesterolemia, colon polyps hx of GI bleed, and rectal prolapse PSHx: Rectal prolapse fixation Allergies: NKDA SHx: Denies ETOH and tobacco use Review of Systems - Review of Systems All systems: reviewed and no additional remarkable complaints except - Constitutional Constitutional: As Per HPI Past Patient History - Past Medical History & Family History Past Medical History?: Yes - Past Social History Smoking Status: Never Smoked - CARDIAC Hx Cardia Arrhythmia: Yes Hx Hypercholesterolemia: Yes Hx Hypertension: Yes - PULMONARY Hx Asthma: Yes - NEUROLOGICAL HX Cerebrovascular Accident: Yes - HEENT Hx HEENT Problems: Yes Other/Comment: USES GLASSES FOR READING - RENAL Hx Chronic Kidney Disease: Yes - ENDOCRINE/METABOLIC Hx Endocrine Disorders: Yes Hx Diabetes Mellitus Type 1: Yes - HEMATOLOGICAL/ONCOLOGICAL Hx Blood Disorders: No - INTEGUMENTARY Hx Dermatological Problems: No - MUSCULOSKELETAL/RHEUMATOLOGICAL Hx Rheumatoid Arthritis: Yes - GASTROINTESTINAL Hx Gastrointestinal Disorders: Yes Other/Comment: RECTAL POLYP - GENITOURINARY/GYNECOLOGICAL Hx Genitourinary Disorders: No Hx Incontinence: Yes - PSYCHIATRIC Hx Depression: Yes Hx Substance Use: No - SURGICAL HISTORY Hx Surgeries: Yes Other/Comment: BREAST REDUCTION 1990, TUMMY TUCK 1990. colonoscopy; colorectal - ANESTHESIA Hx Anesthesia: Yes Hx Anesthesia Reactions: No Hx Malignant Hyperthermia: No Meds Allergies/Adverse Reactions: Allergies Allergy/AdvReac Type Severity Reaction Status Date / Time No Known Allergies Allergy Verified 05/16/17 09:30 Physical Exam - Constitutional Appears: Non-toxic, No Acute Distress - Head Exam Head Exam: NORMAL INSPECTION - Eye Exam Eye Exam: Normal appearance - ENT Exam ENT Exam: Mucous Membranes Moist - Respiratory Exam Respiratory Exam: Clear to Auscultation Bilateral, NORMAL BREATHING PATTERN. 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 Negative for: calf tenderness, pedal edema - Neurological Exam Neurological exam: Alert, Oriented x3 - Psychiatric Exam Psychiatric exam: Normal Affect, Normal Mood - Skin Skin Exam: Warm Results - Vital Signs Recent Vital Signs: Last Vital Signs Temp 97.5 F L 07/04/18 09:38 Pulse 85 07/04/18 11:56 Resp 20 07/04/18 11:56 BP 126/62 07/04/18 11:56 Pulse Ox 95 07/04/18 11:56 - Labs Result Diagrams: 07/04/18 10:10 07/04/18 10:07 Labs: Laboratory Results - last 24 hr 07/04/18 07/04/18 07/04/18 09:37 10:07 10:10 WBC 6.6 RBC 4.03 Hgb 11.7 Hct 35.8 MCV 88.8 MCH 29.1 MCHC 32.8 L RDW 14.3 Plt Count 386 MPV 7.8 Neut % (Auto) 66.6 Lymph % (Auto) 19.4 L [place] % (Auto) 11.6 H Eos % (Auto) 1.6 Baso % (Auto) 0.8 Neut # (Auto) 4.4 Lymph # (Auto) 1.3 [place] # (Auto) 0.8 Eos # (Auto) 0.1 Baso # (Auto) 0.1 PT INR APTT Sodium 138 Potassium 4.0 Chloride 107 Carbon Dioxide 25 Anion Gap 10 BUN 20 H Creatinine 1.0 Est GFR ( Amer) > 60 Est GFR (Non-Af Amer) 53 POC Glucose (mg/dL) 151 H Random Glucose 129 H Calcium 8.6 Total Bilirubin 0.4 AST 21 ALT 22 Alkaline Phosphatase 59 Total Protein 6.3 Albumin 3.5 Globulin 2.8 Albumin/Globulin Ratio 1.2 Urine Color Urine Clarity Urine pH Ur Specific [place] Urine Protein Urine Glucose (UA) Urine Ketones Urine Blood Urine Nitrate Urine Bilirubin Urine Urobilinogen Ur Leukocyte Esterase Urine WBC (Auto) Urine RBC (Auto) Ur Squamous Epith Cells Urine Bacteria Hyaline Casts Blood Type Antibody Screen 07/04/18 07/04/18 07/04/18 10:10 10:10 10:49 WBC RBC Hgb Hct MCV MCH MCHC RDW Plt Count MPV Neut % (Auto) Lymph % (Auto) [place] % (Auto) Eos % (Auto) Baso % (Auto) Neut # (Auto) Lymph # (Auto) [place] # (Auto) Eos # (Auto) Baso # (Auto) PT 16.6 H INR 1.5 APTT 36 H Sodium Potassium Chloride Carbon Dioxide Anion Gap BUN Creatinine Est GFR ( Amer) Est GFR (Non-Af Amer) POC Glucose (mg/dL) Random Glucose Calcium Total Bilirubin AST ALT Alkaline Phosphatase Total Protein Albumin Globulin Albumin/Globulin Ratio Urine Color Yellow Urine Clarity Hazy Urine pH 5.0 Ur Specific [place] 1.013 Urine Protein Negative Urine Glucose (UA) Normal Urine Ketones Negative Urine Blood Negative Urine Nitrate Positive H Urine Bilirubin Negative Urine Urobilinogen Normal Ur Leukocyte Esterase 1+ H Urine WBC (Auto) 32 H Urine RBC (Auto) 1 Ur Squamous Epith Cells 1 Urine Bacteria Many H Hyaline Casts 3-5 H Blood Type O POSITIVE Antibody Screen Negative Assessment & Plan - Assessment and Plan (Free Text) Assessment: 82 F presenting to ED w/ rectal prolapse Plan: - Thiersch procedure Saturday - Cardiac risk stratification will be needed - hold anticoagulants - Further recs per Dr. Magdiel Steiner, PGY1
--- NOTE | 2018-07-04 15:17 | CP.PCM.PN ---
Subjective - Date & Time of Evaluation Date of Evaluation: 07/04/18 Time of Evaluation: 15:15 - Subjective Subjective: RECURRENT RECTAL PROLAPSE REPAIRED VIA PERINEUM IN 2017 WILL DO THIERSCH procedure saturday Objective - Vital Signs/Intake and Output Vital Signs (last 24 hours): Temp Pulse Resp BP Pulse Ox 97.5 F L 84 16 130/65 96 07/04/18 09:38 07/04/18 14:56 07/04/18 14:56 07/04/18 14:56 07/04/18 14:56 - Labs Labs: 07/04/18 10:10 07/04/18 10:07 PT 16.6 SECONDS (9.7-12.2) H 07/04/18 10:10 INR 1.5 07/04/18 10:10 APTT 36 SECONDS (21-34) H 07/04/18 10:10
[2018-07-04] MEDS ORDERED: Iohexol 240 (50 ml) PO ONE (16:00)
[2018-07-04] MEDS ORDERED: Iohexol 240 (50 ml) ONE (16:06)
--- NOTE | 2018-07-04 18:35 | CT ---
Date of service: 07/04/2018 PROCEDURE: CT Abdomen and Pelvis without intravenous contrast HISTORY: RECTAL PROPLAPSE COMPARISON: None. TECHNIQUE: Contiguous images were obtained from the domes of the diaphragms to the upper thighs without the administration of intravenous contrast. Oral contrast was administered. Radiation dose: Total exam DLP = 481.42 mGy-cm. This CT exam was performed using one or more of the following dose reduction techniques: Automated exposure control, adjustment of the mA and/or kV according to patient size, and/or use of iterative reconstruction technique. FINDINGS: LOWER THORAX: Cardiomegaly. Coronary arterial and valvular calcifications. Right lower lobe patchy reticular nodular and tree-in-bud opacities. LIVER: Unremarkable. No gross lesion or ductal dilatation. GALLBLADDER AND BILE DUCTS: Unremarkable. PANCREAS: Unremarkable. No gross lesion or ductal dilatation. SPLEEN: Unremarkable. ADRENALS: Unremarkable. No mass. KIDNEYS AND URETERS: Unremarkable. No hydronephrosis. No solid mass. VASCULATURE: Unremarkable. No aortic aneurysm. Aortic atherosclerotic calcifications present. BOWEL: Colonic diverticulosis. Rectal prolapse. Prior rectal renal surgery. No obstruction. No gross mural thickening. APPENDIX: No findings to suggest acute appendicitis. PERITONEUM: Moderate bilateral fat containing inguinal hernias. Small fat containing umbilical hernia. No free fluid. No free air. LYMPH NODES: Unremarkable. No enlarged lymph nodes. BLADDER: Unremarkable. REPRODUCTIVE: Unremarkable. BONES: No acute fracture. Multilevel spinal degenerative changes. Grade 1 anterolisthesis of L5 on S1. OTHER FINDINGS: None. IMPRESSION: Rectal prolapse. Additional nonacute chronic appearing findings as above.
[2018-07-04] MEDS ORDERED: Home Med 1 UNIT (Zolpidem [Ambien] 10 MG) PO PRN (20:19)
[2018-07-04] MEDS ORDERED: Home Med 1 UNIT (Atorvastatin [Lipitor] 20 MG) PO SCH (22:00)
[2018-07-05 07:15] LABS: HEMOGLOBIN 11.9 g/dL (11.0-16.0); MEAN CELL VOLUME 88.5 fL (81.0-99.0); MEAN CORPUSCULAR HEMOGLOBIN 29.2 pg (27.0-31.0); MEAN PLATELET VOLUME 7.9 fL (7.2-11.7); RBC 4.07 Mil/uL (3.80-5.20); WHITE BLOOD COUNT 6.8 K/uL (4.8-10.8)
[2018-07-05 07:44] LABS: BLOOD UREA NITROGEN 19 mg/dL (7-17); CALCIUM 8.7 mg/dl (8.6-10.4); GFR NON-AFRICAN AMERICAN 60
--- NOTE | 2018-07-05 08:30 | CP.PCM.CON ---
History of Present Illness - History of Present Illness History of Present Illness: CC: Preop Clearence HPI: 82 year old female with following chronic medical problems 1. Rectal prolapse failed prior surgery 2. HTN is chronic and stable on coreg 3. Hyperlipidemia is chronic and stable on crestor 4. DM 5. Atrial fibrillation Review of Systems - Review of Systems All systems: reviewed and no additional remarkable complaints except Past Patient History - Past Medical History & Family History Past Medical History?: Yes - Past Social History Smoking Status: Never Smoked - CARDIAC Hx Cardia Arrhythmia: Yes Hx Hypercholesterolemia: Yes Hx Hypertension: Yes - PULMONARY Hx Asthma: Yes - NEUROLOGICAL HX Cerebrovascular Accident: Yes - HEENT Hx HEENT Problems: Yes Other/Comment: USES GLASSES FOR READING - RENAL Hx Chronic Kidney Disease: Yes - ENDOCRINE/METABOLIC Hx Endocrine Disorders: Yes Hx Diabetes Mellitus Type 1: Yes - HEMATOLOGICAL/ONCOLOGICAL Hx Blood Disorders: No - INTEGUMENTARY Hx Dermatological Problems: No - MUSCULOSKELETAL/RHEUMATOLOGICAL Hx Falls: Yes Hx Rheumatoid Arthritis: Yes - GASTROINTESTINAL Hx Gastrointestinal Disorders: Yes Other/Comment: RECTAL POLYP - GENITOURINARY/GYNECOLOGICAL Hx Genitourinary Disorders: No Hx Incontinence: Yes - PSYCHIATRIC Hx Depression: Yes Hx Substance Use: No - SURGICAL HISTORY Hx Surgeries: Yes Other/Comment: BREAST REDUCTION 1990, TUMMY TUCK 1990. colonoscopy; colorectal - ANESTHESIA Hx Anesthesia: Yes Hx Anesthesia Reactions: No Hx Malignant Hyperthermia: No Meds Allergies/Adverse Reactions: Allergies Allergy/AdvReac Type Severity Reaction Status Date / Time No Known Allergies Allergy Verified 05/16/17 09:30 - Medications Medications: Current Medications Apixaban (Eliquis) 2.5 mg PO BID [facility] Aspirin (Ecotrin) 81 mg PO DAILY [facility] Carvedilol (Coreg) 25 mg PO BID [facility] Diltiazem HCl (Cardizem Cd) 180 mg PO DAILY [facility] Finasteride (Proscar) 5 mg PO DAILY [facility] Home Med (Febuxostat [Uloric]) 40 mg PO DAILY [facility] Home Med (Lubiprostone [Amitiza]) 24 mcg PO BID [facility] Lactulose (Enulose) 10 gm PO BID [facility] Pneumococcal Polyvalent Vaccine (Pneumovax 23 Vaccine) 0.5 ml IM .ONCE ONE Stop: 07/05/18 14:01 Rosuvastatin Calcium (Crestor) 5 mg PO HS [facility] Last Admin: 07/04/18 21:47 Dose: 5 mg Rosuvastatin Calcium (Crestor) 10 mg PO HS [facility] Sitagliptin Phosphate (Januvia) 50 mg PO DAILY [facility] Zolpidem Tartrate (Ambien) 5 mg PO HS PRN PRN Reason: Insomnia Physical Exam - Constitutional Appears: Well, Non-toxic - Head Exam Head Exam: ATRAUMATIC, NORMAL INSPECTION - Eye Exam Eye Exam: PERRL. absent: Scleral icterus - ENT Exam ENT Exam: Mucous Membranes Moist, Normal External Ear Exam - Neck Exam Neck exam: Negative for: Lymphadenopathy, Thyromegaly - Respiratory Exam Respiratory Exam: Clear to Auscultation Bilateral, NORMAL BREATHING PATTERN - Cardiovascular Exam Cardiovascular Exam: REGULAR RHYTHM, RRR, +S1, +S2. absent: JVD - GI/Abdominal Exam GI & Abdominal Exam: Normal Bowel Sounds. absent: Organomegaly - Neurological Exam Neurological exam: CN II-XII Intact, Oriented x3 - Psychiatric Exam Psychiatric exam: Normal Affect, Normal Mood Results - Vital Signs Recent Vital Signs: Last Vital Signs Temp 98.1 F 07/05/18 06:00 Pulse 112 H 07/05/18 06:00 Resp 18 07/05/18 06:00 BP 124/80 07/05/18 06:00 Pulse Ox 97 07/05/18 06:00 - Labs Result Diagrams: 07/06/18 07:09 07/06/18 07:09 Labs: Laboratory Results - last 24 hr 07/04/18 07/04/18 07/04/18 09:37 10:07 10:10 WBC 6.6 RBC 4.03 Hgb 11.7 Hct 35.8 MCV 88.8 MCH 29.1 MCHC 32.8 L RDW 14.3 Plt Count 386 MPV 7.8 Neut % (Auto) 66.6 Lymph % (Auto) 19.4 L [place] % (Auto) 11.6 H Eos % (Auto) 1.6 Baso % (Auto) 0.8 Neut # (Auto) 4.4 Lymph # (Auto) 1.3 Bladen # (Auto) 0.8 Eos # (Auto) 0.1 Baso # (Auto) 0.1 PT INR APTT Sodium 138 Potassium 4.0 Chloride 107 Carbon Dioxide 25 Anion Gap 10 BUN 20 H Creatinine 1.0 Est GFR ( Amer) > 60 Est GFR (Non-Af Amer) 53 POC Glucose (mg/dL) 151 H Random Glucose 129 H Calcium 8.6 Total Bilirubin 0.4 AST 21 ALT 22 Alkaline Phosphatase 59 Total Protein 6.3 Albumin 3.5 Globulin 2.8 Albumin/Globulin Ratio 1.2 Urine Color Urine Clarity Urine pH Ur Specific [place] Urine Protein Urine Glucose (UA) Urine Ketones Urine Blood Urine Nitrate Urine Bilirubin Urine Urobilinogen Ur Leukocyte Esterase Urine WBC (Auto) Urine RBC (Auto) Ur Squamous Epith Cells Urine Bacteria Hyaline Casts Blood Type Antibody Screen 07/04/18 07/04/18 07/04/18 10:10 10:10 10:49 WBC RBC Hgb Hct MCV MCH MCHC RDW Plt Count MPV Neut % (Auto) Lymph % (Auto) Bladen % (Auto) Eos % (Auto) Baso % (Auto) Neut # (Auto) Lymph # (Auto) Bl[place] # (Auto) Eos # (Auto) Baso # (Auto) PT 16.6 H INR 1.5 APTT 36 H Sodium Potassium Chloride Carbon Dioxide Anion Gap BUN Creatinine Est GFR ( Amer) Est GFR (Non-Af Amer) POC Glucose (mg/dL) Random Glucose Calcium Total Bilirubin AST ALT Alkaline Phosphatase Total Protein Albumin Globulin Albumin/Globulin Ratio Urine Color Yellow Urine Clarity Hazy Urine pH 5.0 Ur Specific [place] 1.013 Urine Protein Negative Urine Glucose (UA) Normal Urine Ketones Negative Urine Blood Negative Urine Nitrate Positive H Urine Bilirubin Negative Urine Urobilinogen Normal Ur Leukocyte Esterase 1+ H Urine WBC (Auto) 32 H Urine RBC (Auto) 1 Ur Squamous Epith Cells 1 Urine Bacteria Many H Hyaline Casts 3-5 H Blood Type O POSITIVE Antibody Screen Negative 07/05/18 07/05/18 07/05/18 06:11 07:06 07:06 WBC 6.8 RBC 4.07 Hgb 11.9 Hct 36.0 MCV 88.5 MCH 29.2 MCHC 33.0 RDW 14.0 Plt Count 373 MPV 7.9 Neut % (Auto) Lymph % (Auto) Bladen % (Auto) Eos % (Auto) Baso % (Auto) Neut # (Auto) Lymph # (Auto) Bl[place] # (Auto) Eos # (Auto) Baso # (Auto) PT INR APTT Sodium 139 Potassium 3.8 Chloride 107 Carbon Dioxide 26 Anion Gap 11 BUN 19 H Creatinine 0.9 Est GFR ( Amer) > 60 Est GFR (Non-Af Amer) 60 POC Glucose (mg/dL) 109 Random Glucose 102 D Calcium 8.7 Total Bilirubin AST ALT Alkaline Phosphatase Total Protein Albumin Globulin Albumin/Globulin Ratio Urine Color Urine Clarity Urine pH Ur Specific [place] Urine Protein Urine Glucose (UA) Urine Ketones Urine Blood Urine Nitrate Urine Bilirubin Urine Urobilinogen Ur Leukocyte Esterase Urine WBC (Auto) Urine RBC (Auto) Ur Squamous Epith Cells Urine Bacteria Hyaline Casts Blood Type Antibody Screen - Imaging and Cardiology Chest x-ray Status: Image reviewed by me (No infiltrates or effusions ) Assessment & Plan - Assessment and Plan (Free Text) Assessment: 2D echo from 03/2018 images viewed by me: Normal LV systolic funciton, atrial fibrillation, concentric LVH, LAE A/P: 82 year old female with rectal prolapse scheduled for surgery saturday. She is acceptable risk for moderate risk surgery. No further work up is required. She can stop anticoagulation as per surgery if necessary for 48 hours. Anticoagulation should be resumed post op. HTN is chornic and stable on coreg and cardizem Atrial fibrillation obtain EKG to assess current rhythm, anti coagulate post op for CVA prophylaxsis DM is chornic and stable on Januvia, insulin sliding scale.
--- NOTE | 2018-07-05 09:20 | CP.PCM.PN ---
Subjective - Date & Time of Evaluation Date of Evaluation: 07/05/18 Time of Evaluation: 09:16 - Subjective Subjective: Surgery Note for Dr. Veloz 82F seen and evaluated at bedside this morning. No acute events overnight. No complaints this morning. No repeated bleeding episodes noted. Denies f/c, n/v/d, SOB, CP, or urinary symptoms. Objective - Vital Signs/Intake and Output Vital Signs (last 24 hours): Temp Pulse Resp BP Pulse Ox 98.2 F 116 H 20 131/65 94 L 07/05/18 07:00 07/05/18 07:00 07/05/18 07:00 07/05/18 07:00 07/05/18 07:00 - Medications Medications: Current Medications Apixaban (Eliquis) 2.5 mg PO BID [facility] Aspirin (Ecotrin) 81 mg PO DAILY [facility] Carvedilol (Coreg) 25 mg PO BID [facility] Diltiazem HCl (Cardizem Cd) 180 mg PO DAILY [facility] Finasteride (Proscar) 5 mg PO DAILY [facility] Home Med (Febuxostat [Uloric]) 40 mg PO DAILY [facility] Home Med (Lubiprostone [Amitiza]) 24 mcg PO BID [facility] Lactulose (Enulose) 10 gm PO BID [facility] Pneumococcal Polyvalent Vaccine (Pneumovax 23 Vaccine) 0.5 ml IM .ONCE ONE Stop: 07/06/18 14:01 Rosuvastatin Calcium (Crestor) 5 mg PO HS [facility] Last Admin: 07/04/18 21:47 Dose: 5 mg Rosuvastatin Calcium (Crestor) 10 mg PO HS [facility] Sitagliptin Phosphate (Januvia) 50 mg PO DAILY [facility] Zolpidem Tartrate (Ambien) 5 mg PO HS PRN PRN Reason: Insomnia - Labs Labs: 07/05/18 07:06 07/05/18 07:06 PT 16.6 SECONDS (9.7-12.2) H 07/04/18 10:10 INR 1.5 07/04/18 10:10 APTT 36 SECONDS (21-34) H 07/04/18 10:10 - Constitutional Appears: Well, Non-toxic, No Acute Distress - Head Exam Head Exam: ATRAUMATIC, NORMAL INSPECTION, NORMOCEPHALIC - Eye Exam Eye Exam: EOMI - ENT Exam ENT Exam: Mucous Membranes Moist - Respiratory Exam Respiratory Exam: NORMAL BREATHING PATTERN. absent: Respiratory Distress - Cardiovascular Exam Cardiovascular Exam: REGULAR RHYTHM. absent: Tachycardia - GI/Abdominal Exam GI & Abdominal Exam: Soft, Normal Bowel Sounds. absent: Tenderness - Neurological Exam Neurological Exam: Alert, Awake - Psychiatric Exam Psychiatric exam: Normal Affect, Normal Mood - Skin Skin Exam: Dry, Intact, Normal Color, Warm Assessment and Plan - Assessment and Plan (Free Text) Assessment: 82F w/ rectal prolapse Plan: No repeat rectal bleeding episodes noted Patient cleared by cardiology for surgery Pre-operative labs NPO past midnight Saturday Hold AC - will restart after OR on Saturday Will proceed with OR Saturday for surgical intervention D/w Dr. Magdiel Boo PGY1
[2018-07-05] MEDS ORDERED: Home Med 1 UNIT (Lactulose [Lactulose] 10 GM) PO SCH (10:00)
[2018-07-05] MEDS ORDERED: Home Med 1 UNIT (Lubiprostone [Amitiza] 24 MCG) PO SCH ×2 (10:00)
[2018-07-05] MEDS: diltiaZEM 180 mg/24 Hours CD Cap PO SCH (11:20)
--- NOTE | 2018-07-06 06:41 | HP ---
HISTORY OF PRESENT ILLNESS: An 82-year-old female admitted to the hospital with the chief complaint of weakness, fatigue and tiredness. The patient was found to have rectal prolapse. The patient was advised admission to the hospital. PHYSICAL EXAMINATION GENERAL: The patient is awake, alert and oriented. VITAL SIGNS: Temperature 98, pulse 90. HEENT: Within normal limits. NECK: Supple. CHEST: Symmetrical. HEART: Regular. ABDOMEN: Soft. EXTREMITIES: No edema. IMPRESSION AND PLAN: Rectal prolapse. The patient to get bed rest, supportive care. Surgical consult. Bart Boswell MD
[2018-07-06 07:15] LABS: HEMOGLOBIN 11.5 g/dL (11.0-16.0); MEAN CELL VOLUME 88.6 fL (81.0-99.0); MEAN CORPUSCULAR HEMOGLOBIN 28.6 pg (27.0-31.0); MEAN CORPUSCULAR HGB CONC 32.3 g/dL (33.0-37.0); MEAN PLATELET VOLUME 7.5 fL (7.2-11.7); RBC 4.02 Mil/uL (3.80-5.20); RED CELL DISTRIBUTION WIDTH 14.4 % (11.5-14.5); WHITE BLOOD COUNT 6.8 K/uL (4.8-10.8)
[2018-07-06 07:33] LABS: BLOOD UREA NITROGEN 19 mg/dL (7-17); CALCIUM 8.7 mg/dl (8.6-10.4); GFR NON-AFRICAN AMERICAN > 60
--- NOTE | 2018-07-06 09:42 | CP.PCM.PN ---
Subjective - Date & Time of Evaluation Date of Evaluation: 07/06/18 Time of Evaluation: 09:42 - Subjective Subjective: Events reviewed Objective - Vital Signs/Intake and Output Vital Signs (last 24 hours): Temp Pulse Resp BP Pulse Ox 97.9 F 83 20 130/71 97 07/06/18 07:00 07/06/18 07:00 07/06/18 07:00 07/06/18 07:00 07/06/18 07:00 Intake and Output: 07/06/18 07/06/18 06:59 18:59 Intake Total 10 Balance 10 - Medications Medications: Current Medications Apixaban (Eliquis) 2.5 mg PO BID REPLACED BY [facility] Aspirin (Ecotrin) 81 mg PO DAILY [facility] Carvedilol (Coreg) 25 mg PO BID [facility]PL[facility] BY [facility] Last Admin: 07/05/18 18:46 Dose: Not Given Diltiazem HCl (Cardizem Cd) 180 mg PO DAILY [facility] Last Admin: 07/05/18 11:20 Dose: 180 mg Finasteride (Proscar) 5 mg PO DAILY [facility] Last Admin: 07/05/18 11:20 Dose: 5 mg Home Med (Febuxostat [Uloric]) 40 mg PO DAILY REPLACED BY [facility] Home Med (Lubiprostone [Amitiza]) 24 mcg PO BID [facility]PLACED BY [facility] Lactulose (Enulose) 10 gm PO BID [facility]PL[facility] Last Admin: 07/05/18 18:47 Dose: 10 gm Pneumococcal Polyvalent Vaccine (Pneumovax 23 Vaccine) 0.5 ml IM .ONCE ONE Stop: 07/06/18 14:01 Rosuvastatin Calcium (Crestor) 5 mg PO HS [facility]PL[facility] Last Admin: 07/05/18 21:38 Dose: Not Given Rosuvastatin Calcium (Crestor) 10 mg PO HS [facility] Last Admin: 07/05/18 21:36 Dose: 10 mg Sitagliptin Phosphate (Januvia) 50 mg PO DAILY [facility] Last Admin: 07/05/18 11:20 Dose: 50 mg Zolpidem Tartrate (Ambien) 5 mg PO HS PRN PRN Reason: Insomnia Last Admin: 07/05/18 21:34 Dose: 5 mg - Labs Labs: 07/06/18 07:09 07/06/18 07:09 PT 16.6 SECONDS (9.7-12.2) H 07/04/18 10:10 INR 1.5 07/04/18 10:10 APTT 36 SECONDS (21-34) H 07/04/18 10:10 Assessment and Plan - Assessment and Plan (Free Text) Assessment: - Imaging and Cardiology Chest x-ray Status: Image reviewed by me (No infiltrates or effusions ) Assessment & Plan - Assessment and Plan (Free Text) Assessment: 2D echo from 03/2018 images viewed by me: Normal LV systolic funciton, atrial fibrillation, concentric LVH, LAE A/P: 82 year old female with rectal prolapse scheduled for surgery saturday. She is acceptable risk for moderate risk surgery. No further work up is required. She can stop anticoagulation as per surgery if necessary for 48 hours. Anticoagulation should be resumed post op. HTN is chornic and stable on coreg and cardizem Atrial fibrillation obtain EKG to assess current rhythm, anti coagulate post op for CVA prophylaxsis DM is chornic and stable on Januvia, insulin sliding scale.
[2018-07-06] MEDS: diltiaZEM 180 mg/24 Hours CD Cap PO SCH (10:02)
[2018-07-06] MEDS ORDERED: Pneumococcal 23-Valent Vaccine IM ONE (14:00)
--- NOTE | 2018-07-06 16:30 | CP.PCM.PN ---
Subjective - Date & Time of Evaluation Date of Evaluation: 07/06/18 Time of Evaluation: 08:00 - Subjective Subjective: Surgery: Dr. Veloz Pt seen and examined. No acute overnight events. States she feels ok and denies pain at this time. Denies nausea/vomiting, bloody BMs, fevers or chills. Objective - Vital Signs/Intake and Output Vital Signs (last 24 hours): Temp Pulse Resp BP Pulse Ox 97.9 F 83 20 130/78 97 07/06/18 07:00 07/06/18 07:00 07/06/18 07:00 07/06/18 10:02 07/06/18 07:00 Intake and Output: 07/06/18 07/06/18 06:59 18:59 Intake Total 10 Balance 10 - Medications Medications: Current Medications Apixaban (Eliquis) 2.5 mg PO BID [facility] Aspirin (Ecotrin) 81 mg PO DAILY [facility] Carvedilol (Coreg) 25 mg PO BID [facility] Last Admin: 07/06/18 10:02 Dose: 25 mg Diltiazem HCl (Cardizem Cd) 180 mg PO DAILY [facility] Last Admin: 07/06/18 10:02 Dose: 180 mg Finasteride (Proscar) 5 mg PO DAILY [facility] Last Admin: 07/06/18 10:02 Dose: 5 mg Home Med (Febuxostat [Uloric]) 40 mg PO DAILY [facility] Home Med (Lubiprostone [Amitiza]) 24 mcg PO BID [facility] Lactulose (Enulose) 10 gm PO BID [facility] Last Admin: 07/06/18 10:02 Dose: Not Given Rosuvastatin Calcium (Crestor) 5 mg PO HS [facility] Last Admin: 07/05/18 21:38 Dose: Not Given Sitagliptin Phosphate (Januvia) 50 mg PO DAILY [facility] Last Admin: 07/06/18 10:02 Dose: 50 mg Zolpidem Tartrate (Ambien) 5 mg PO HS PRN PRN Reason: Insomnia Last Admin: 07/05/18 21:34 Dose: 5 mg - Labs Labs: 07/06/18 07:09 07/06/18 07:09 PT 16.6 SECONDS (9.7-12.2) H 07/04/18 10:10 INR 1.5 07/04/18 10:10 APTT 36 SECONDS (21-34) H 07/04/18 10:10 - Constitutional Appears: Well, No Acute Distress - Head Exam Head Exam: ATRAUMATIC, NORMOCEPHALIC - Eye Exam Eye Exam: Normal appearance - ENT Exam ENT Exam: Mucous Membranes Moist - Cardiovascular Exam Cardiovascular Exam: RRR - GI/Abdominal Exam GI & Abdominal Exam: Soft. absent: Distended, Tenderness - Neurological Exam Neurological Exam: Alert, Awake, Oriented x3 - Skin Skin Exam: Dry, Warm Assessment and Plan - Assessment and Plan (Free Text) Assessment: 82F with rectal prolapse Plan: - plan for OR tomorrow AM - keep NPO after midnight - hold AC - d/w Dr. Magdiel Downey
[2018-07-07 07:38] LABS: HEMOGLOBIN 12.1 g/dL (11.0-16.0); MEAN CORPUSCULAR HEMOGLOBIN 28.8 pg (27.0-31.0); MEAN CORPUSCULAR HGB CONC 32.7 g/dL (33.0-37.0); MEAN PLATELET VOLUME 7.5 fL (7.2-11.7); RBC 4.21 Mil/uL (3.80-5.20); RED CELL DISTRIBUTION WIDTH 14.1 % (11.5-14.5)
[2018-07-07 07:45] LABS: INR 1.1; PROTHROMBIN TIME 12.1 SECONDS (9.7-12.2)
[2018-07-07 07:49] LABS: BLOOD UREA NITROGEN 15 mg/dL (7-17); CALCIUM 9.3 mg/dl (8.6-10.4); GFR NON-AFRICAN AMERICAN > 60
--- NOTE | 2018-07-07 09:54 | CP.PCM.PN ---
Subjective - Date & Time of Evaluation Date of Evaluation: 07/07/18 Time of Evaluation: 07:00 - Subjective Subjective: PGY2- Progress Note for Dr. Boswell Patient seen and examined at bedside. Patient has no complaints. Patient denies any headache, chest pain, shortness of breath, abdominal pain, blood in stool, nausea, or vomiting. Objective - Vital Signs/Intake and Output Vital Signs (last 24 hours): Temp Pulse Resp BP Pulse Ox 98.2 F 88 20 122/66 98 07/07/18 00:00 07/07/18 00:00 07/07/18 00:00 07/07/18 00:00 07/07/18 00:00 Intake and Output: 07/07/18 07/07/18 06:59 18:59 Intake Total 400 Balance 400 - Medications Medications: Current Medications Apixaban (Eliquis) 2.5 mg PO BID [facility] Aspirin (Ecotrin) 81 mg PO DAILY [facility] Carvedilol (Coreg) 25 mg PO BID [facility] Last Admin: 07/06/18 18:00 Dose: 25 mg Diltiazem HCl (Cardizem Cd) 180 mg PO DAILY [facility] Last Admin: 07/06/18 10:02 Dose: 180 mg Finasteride (Proscar) 5 mg PO DAILY [facility] Last Admin: 07/06/18 10:02 Dose: 5 mg Home Med (Febuxostat [Uloric]) 40 mg PO DAILY [facility] Home Med (Lubiprostone [Amitiza]) 24 mcg PO BID [facility] Lactulose (Enulose) 10 gm PO BID [facility] Last Admin: 07/06/18 18:00 Dose: 10 gm Rosuvastatin Calcium (Crestor) 5 mg PO HS [facility] Last Admin: 07/06/18 21:56 Dose: 5 mg Sitagliptin Phosphate (Januvia) 50 mg PO DAILY [facility] Last Admin: 07/06/18 10:02 Dose: 50 mg Zolpidem Tartrate (Ambien) 5 mg PO HS PRN PRN Reason: Insomnia Last Admin: 07/06/18 21:57 Dose: 5 mg - Labs Labs: 07/07/18 07:18 07/07/18 07:18 PT 12.1 SECONDS (9.7-12.2) 07/07/18 07:18 INR 1.1 07/07/18 07:18 APTT 30 SECONDS (21-34) D 07/07/18 07:18 - Constitutional Appears: Non-toxic, No Acute Distress - Head Exam Head Exam: ATRAUMATIC, NORMAL INSPECTION, NORMOCEPHALIC - Eye Exam Eye Exam: EOMI, Normal appearance - ENT Exam ENT Exam: Mucous Membranes Moist - Respiratory Exam Respiratory Exam: Clear to Ausculation Bilateral, NORMAL BREATHING PATTERN. absent: Rales, Rhonchi, Wheezes, Respiratory Distress, Stridor - Cardiovascular Exam Cardiovascular Exam: REGULAR RHYTHM, RRR, +S1, +S2 - GI/Abdominal Exam GI & Abdominal Exam: Soft, Normal Bowel Sounds. absent: Tenderness - Neurological Exam Neurological Exam: Alert, Awake, Oriented x3 - Psychiatric Exam Psychiatric exam: Normal Affect, Normal Mood - Skin Skin Exam: Intact, Normal Color, Warm Assessment and Plan - Assessment and Plan (Free Text) Assessment: Rectal Prolapse Thiersch procedure today with Dr. Veloz, help appreciated npo, anticoagulants held A fib Carvedilol 25mg po BID Cardizem 180 mg po daily Eliquis 2.5mg po BID [facility] 81mg po daily Gout Uloric NF Allopurinol 100mg po daily instead DMII Januvia 50mg po daily [facility] Rosuvastatin 5mg po HS Insomnia Ambien 5mg po HS prn Prophylaxis on Eliquis no GI prophylaxis indicated Enulose 10mg po BID discussed and seen with Dr. Boswell
[2018-07-07] MEDS: diltiaZEM 180 mg/24 Hours CD Cap PO SCH (10:16)
[2018-07-07] MEDS ORDERED: Midazolam 2 MG/2 ML VIAL ONE (13:51)
[2018-07-07] MEDS ORDERED: Propofol 10 mg/ml Inj (20 ML) ONE (13:51)
[2018-07-07] MEDS ORDERED: Lidocaine/Epinephrine 1% 1:100000 10 ML IJ ONE (13:57)
[2018-07-07] MEDS: ceFAZolin 1 gm in NS 1 GM/100 ML BAG IVPB ONE ×2 (14:00→14:49)
[2018-07-07] MEDS ORDERED: Lidocaine Hydrochloride 5 ML INJ ONE (14:33)
[2018-07-07] MEDS ORDERED: HYDROmorphone 0.5 mg/0.5 ml ISec IVP PRN (14:41)
--- NOTE | 2018-07-07 14:44 | PCM.SURG1 ---
Surgeon's Initial Post Op Note - Surgeon's Notes Surgeon: Dr. Veloz Make Ready Worker: PGY4; Snehal PGY2 Type of Anesthesia: General LMA, Local Anesthesia Administered By: Serenity Kingston CRNA Pre-Operative Diagnosis: Rectal Prolapse Operative Findings: See operative report Post-Operative Diagnosis: Same Operation Performed: Rectal Exam under Anesthesia; Thiersch Procedure Specimen/Specimens Removed: none Estimated Blood Loss: EBL {In ML}: 2 Blood Products Given: N/A Drains Used: No Drains Post-Op Condition: Good Date of Surgery/Procedure: 07/07/18 Time of Surgery/Procedure: 14:44
[2018-07-07] MEDS: Magnesium Hydroxide Susp 30 ml UD PO SCH ×2 (15:07→17:38)
--- NOTE | 2018-07-08 02:10 | OP ---
PROCEDURE DATE: 07/07/2018 PREOPERATIVE DIAGNOSIS: Rectal prolapse. POSTOPERATIVE DIAGNOSIS: Rectal prolapse. PROCEDURE CARRIED OUT: Thiersch's procedure. SURGEON: Jason Veloz Jr., MD ASSISTANTS: Dr. Brian and Dr. Olivas. INDICATION: The patient is an 82-year-old woman who previous had a modified Altemeier procedure less than 2 years ago, presents with recurrent rectal prolapse. Digital rectal exam to length of all fingers did not reveal any polyps or other abnormalities. She had previously a colonoscopy by Dr. Valente. OPERATIVE FINDINGS: 1. There is a large anterior cystocele protruding out of the vagina. 2. The patient's prolapse of rectum . We were able to reduce the stent with a rectal dilator in place. We then placed a large #2 Prolene suture around the rectal stump and a Thiersch type procedure. We buried the knots and terminated the procedure after this had been done. Declared adequate space for removal of her balance. No other abnormalities were detected. Procedure was then terminated. The operation carried out is Thiersch's procedure and exam under anesthesia. Jason Veloz Jr., MD cc: Dr. Boswell.
[2018-07-08 07:00] LABS: BASO % 0.5 % (0.0-2.0); EOS # 0.2 K/uL (0.0-0.7); HEMOGLOBIN 11.6 g/dL (11.0-16.0); LYMPH # 1.2 K/uL (1.0-4.3); LYMPH % 14.9 % (20.0-40.0); MEAN CELL VOLUME 87.8 fL (81.0-99.0); MEAN CORPUSCULAR HEMOGLOBIN 29.1 pg (27.0-31.0); MEAN CORPUSCULAR HGB CONC 33.1 g/dL (33.0-37.0); MEAN PLATELET VOLUME 7.3 fL (7.2-11.7); MONO # 0.7 K/uL (0.0-0.8); MONO % 8.9 % (0.0-10.0); NEUT # 6.2 K/uL (1.8-7.0); NEUT % 73.7 % (50.0-75.0); RBC 3.99 Mil/uL (3.80-5.20); RED CELL DISTRIBUTION WIDTH 13.8 % (11.5-14.5); WHITE BLOOD COUNT 8.4 K/uL (4.8-10.8)
[2018-07-08 07:47] LABS: ALB/GLOB RATIO 1.3 (1.0-2.1); ALBUMIN 3.4 g/dL (3.5-5.0); ALT/SGPT 23 U/L (9-52); AST/SGOT 27 U/L (14-36); BLOOD UREA NITROGEN 14 mg/dL (7-17); CALCIUM 8.7 mg/dl (8.6-10.4); GFR NON-AFRICAN AMERICAN 60
--- NOTE | 2018-07-08 08:38 | CP.PCM.PN ---
Subjective - Date & Time of Evaluation Date of Evaluation: 07/08/18 Time of Evaluation: 08:00 - Subjective Subjective: Medicine progress note (Dr. Boswell's service) Patient was seen and examined at bedside, while resting in bed comfortably. Patient reports that she is denies any acute issues. Patient denies any symptoms of fever, chills, nausea, vomiting, chest pain, palpitations, shortness of breath, abdominal pain, hematochezia and urinary symptoms. Objective - Vital Signs/Intake and Output Vital Signs (last 24 hours): Temp Pulse Resp BP Pulse Ox 97.9 F 75 20 109/69 95 07/08/18 07:15 07/08/18 07:15 07/08/18 07:15 07/08/18 07:15 07/08/18 07:15 - Medications Medications: Current Medications Allopurinol (Zyloprim) 100 mg PO DAILY [facility] Apixaban (Eliquis) 2.5 mg PO BID [facility] Aspirin (Ecotrin) 81 mg PO DAILY [facility] Carvedilol (Coreg) 25 mg PO BID [facility] Last Admin: 07/07/18 19:38 Dose: 25 mg Diltiazem HCl (Cardizem Cd) 180 mg PO DAILY [facility] Last Admin: 07/07/18 10:16 Dose: 180 mg Finasteride (Proscar) 5 mg PO DAILY [facility] Last Admin: 07/07/18 10:02 Dose: Not Given Lactulose (Enulose) 10 gm PO BID [facility] Last Admin: 07/07/18 19:40 Dose: 10 gm Magnesium Hydroxide (Milk Of Magnesia) 30 ml PO DAILY [facility] Last Admin: 07/07/18 17:38 Dose: 30 ml Rosuvastatin Calcium (Crestor) 5 mg PO HS [facility] Last Admin: 07/07/18 21:36 Dose: 5 mg Sitagliptin Phosphate (Januvia) 50 mg PO DAILY [facility] Last Admin: 07/07/18 10:02 Dose: Not Given Zolpidem Tartrate (Ambien) 5 mg PO HS PRN PRN Reason: Insomnia Last Admin: 07/07/18 21:35 Dose: 5 mg - Labs Labs: 07/08/18 06:52 07/08/18 06:52 PT 12.1 SECONDS (9.7-12.2) 07/07/18 07:18 INR 1.1 07/07/18 07:18 APTT 30 SECONDS (21-34) D 07/07/18 07:18 - Constitutional Appears: No Acute Distress - Head Exam Head Exam: ATRAUMATIC - Eye Exam Eye Exam: EOMI, Normal appearance - ENT Exam ENT Exam: Mucous Membranes Moist - Respiratory Exam Respiratory Exam: Clear to Ausculation Bilateral, NORMAL BREATHING PATTERN. absent: Chest Wall Tenderness, Prolonged Expiratory Phase, Rhonchi, Wheezes, Respiratory Distress - Cardiovascular Exam Cardiovascular Exam: Irregular Rhythm, +S1, +S2. absent: Murmur - GI/Abdominal Exam GI & Abdominal Exam: Soft, Normal Bowel Sounds. absent: Distended, Firm, Guarding, Rigid, Tenderness - Rectal Exam Additional comments: s/p Thiersch Procedure; dressing is clean, dry and intact - Extremities Exam Extremities Exam: Normal Inspection. absent: Calf Tenderness, Pedal Edema - Back Exam Back Exam: NORMAL INSPECTION - Neurological Exam Neurological Exam: Alert, Awake, Oriented x3 - Psychiatric Exam Psychiatric exam: Normal Affect - Skin Skin Exam: Normal Color Assessment and Plan (1) Rectal prolapse Assessment & Plan: Consultation: General Surgery, Dr. Veloz---> Help appreciated * S/P Thiersch Procedure (07/07/17) * Patient has had 2 bowel movement post procedure * Continue Milk of magnesia 30ml PO daily * Lactulose 20gm PO BID Imaging: Abdomen/pelvis CT: Colonic diverticulosis. Rectal prolapse. Prior rectal renal surgery. No obstruction. No gross mural thickening. Moderate bilateral fat containing inguinal hernias. Small fat containing umbilical hernia. No free fluid. No free air. No acute fracture. Multilevel spinal degenerative changes. Grade 1 anterolisthesis of L5 on S1. Rectal prolapse. Status: Acute (2) History of atrial fibrillation Assessment & Plan: [employer], Dr. Saavedra---> Help appreciated Carvedilol 25mg po BID Cardizem 180 mg po daily Eliquis 2.5mg po BID Aspirin 81mg po daily Status: Acute (3) Diabetes mellitus Assessment & Plan: HgbA1C (03/20/18): 6.1 Accuchecks Januvia 50mg PO daily Status: Acute (4) Hyperlipidemia Assessment & Plan: Lipid panel (03/20/18) -TGL: 187, Chol:130, HDL:37 and LDL: 57 Crestor 5mg PO HS Status: Acute (5) Gout Assessment & Plan: Allopurinol 100mg po daily Status: Acute (6) Insomnia Assessment & Plan: Ambien 5mg po HS prn Status: Acute (7) Cystocele Assessment & Plan: Urology, Dr. Zulay Padron * Management as per recommendation Status: Acute (8) History of colon polyps Assessment & Plan: GI, Dr. Valente * Management as per recommendation Status: Acute (9) Prophylactic measure Assessment & Plan: DVT: Eliquis 2.5mg po BID GI: Not indicated All plans and management discussed with Dr. Boswell Status: Acute
--- NOTE | 2018-07-08 09:18 | CP.PCM.PN ---
Subjective - Date & Time of Evaluation Date of Evaluation: 07/08/18 Time of Evaluation: 06:45 - Subjective Subjective: General Surgery Pt Seen and examined. No acute events overnight. Tolerating diet and had BM. Feeling ok, no new complaints at this time. Objective - Vital Signs/Intake and Output Vital Signs (last 24 hours): Temp Pulse Resp BP Pulse Ox 97.9 F 75 20 109/69 95 07/08/18 07:15 07/08/18 07:15 07/08/18 07:15 07/08/18 07:15 07/08/18 07:15 - Medications Medications: Current Medications Allopurinol (Zyloprim) 100 mg PO DAILY [facility] Apixaban (Eliquis) 2.5 mg PO BID [facility] Aspirin (Ecotrin) 81 mg PO DAILY [facility] Carvedilol (Coreg) 25 mg PO BID [facility] Last Admin: 07/07/18 19:38 Dose: 25 mg Diltiazem HCl (Cardizem Cd) 180 mg PO DAILY [facility] Last Admin: 07/07/18 10:16 Dose: 180 mg Finasteride (Proscar) 5 mg PO DAILY [facility] Last Admin: 07/07/18 10:02 Dose: Not Given Lactulose (Enulose) 10 gm PO BID [facility] Last Admin: 07/07/18 19:40 Dose: 10 gm Magnesium Hydroxide (Milk Of Magnesia) 30 ml PO DAILY [facility] Last Admin: 07/07/18 17:38 Dose: 30 ml Rosuvastatin Calcium (Crestor) 5 mg PO HS [facility] Last Admin: 07/07/18 21:36 Dose: 5 mg Sitagliptin Phosphate (Januvia) 50 mg PO DAILY [facility] Last Admin: 07/07/18 10:02 Dose: Not Given Zolpidem Tartrate (Ambien) 5 mg PO HS PRN PRN Reason: Insomnia Last Admin: 07/07/18 21:35 Dose: 5 mg - Labs Labs: 07/08/18 06:52 07/08/18 06:52 PT 12.1 SECONDS (9.7-12.2) 07/07/18 07:18 INR 1.1 07/07/18 07:18 APTT 30 SECONDS (21-34) D 07/07/18 07:18 - Constitutional Appears: Non-toxic, No Acute Distress - Head Exam Head Exam: ATRAUMATIC, NORMOCEPHALIC - Eye Exam Eye Exam: EOMI. absent: Scleral icterus - Respiratory Exam Respiratory Exam: NORMAL BREATHING PATTERN. absent: Respiratory Distress - GI/Abdominal Exam GI & Abdominal Exam: Soft. absent: Distended, Tenderness - Rectal Exam Additional comments: Some soiling present, incisions dry and intact - Extremities Exam Extremities Exam: absent: Calf Tenderness, Pedal Edema - Neurological Exam Neurological Exam: Alert, Awake, Oriented x3 - Skin Skin Exam: Dry, Warm Assessment and Plan - Assessment and Plan (Free Text) Assessment: 82F POD#1 s/p Thiersch procedure Plan: Need to keep stools soft to allow passage. Continue Mag citrate daily Colace BID Follow up GI and Urology recs D/W Dr. Magdiel Olivas PGY4
[2018-07-08] MEDS: diltiaZEM 180 mg/24 Hours CD Cap PO SCH (10:59)
[2018-07-08] MEDS: Magnesium Hydroxide Susp 30 ml UD PO SCH ×2 (10:59→11:04)
--- NOTE | 2018-07-08 10:59 | CP.PCM.CON ---
History of Present Illness - History of Present Illness History of Present Illness: This is an 82 year old woman with rectal prolaps. Patient was originally evaluated 09/2016 for constipation and rectal bleeding. Rectal prolapse was diagnosed. Colonoscopy 03/28/2017 showed diverticulusis and multiple tubular adenomas up to 3 cm in diameter. The prolapse was repaired 05/27/2017. Patient was readmitted for constipation and rectal bleeding 07/04/2018. A Thiersch procedure was performed 07/07/2018. At present, patient denies having nausea, vomiting, abdominal pain, rectal bleeding. Review of Systems - Review of Systems All systems: reviewed and no additional remarkable complaints except - Constitutional Constitutional: absent: Chills, Fever - Cardiovascular Cardiovascular: absent: Chest Pain, Lightheadedness - Respiratory Respiratory: absent: Dyspnea - Gastrointestinal Gastrointestinal: Constipation, Hematochezia. absent: Abdominal Pain, Diarrhea, Nausea, Vomiting - Integumentary Integumentary: absent: Rash - Neurological Neurological: absent: Dizziness, Weakness Past Patient History - Past Medical History & Family History Past Medical History?: Yes - Past Social History Smoking Status: Never Smoked - CARDIAC Hx Cardia Arrhythmia: Yes Hx Hypercholesterolemia: Yes Hx Hypertension: Yes - PULMONARY Hx Asthma: Yes - NEUROLOGICAL HX Cerebrovascular Accident: Yes - HEENT Hx HEENT Problems: Yes Other/Comment: USES GLASSES FOR READING - RENAL Hx Chronic Kidney Disease: Yes - ENDOCRINE/METABOLIC Hx Endocrine Disorders: Yes Hx Diabetes Mellitus Type 1: Yes - HEMATOLOGICAL/ONCOLOGICAL Hx Blood Disorders: No - INTEGUMENTARY Hx Dermatological Problems: No - MUSCULOSKELETAL/RHEUMATOLOGICAL Hx Falls: Yes Hx Rheumatoid Arthritis: Yes - GASTROINTESTINAL Hx Gastrointestinal Disorders: Yes Other/Comment: RECTAL POLYP - GENITOURINARY/GYNECOLOGICAL Hx Genitourinary Disorders: No Hx Incontinence: Yes - PSYCHIATRIC Hx Depression: Yes Hx Substance Use: No - SURGICAL HISTORY Hx Surgeries: Yes Other/Comment: BREAST REDUCTION 1990, TUMMY TUCK 1990. colonoscopy; colorectal - ANESTHESIA Hx Anesthesia: Yes Hx Anesthesia Reactions: No Hx Malignant Hyperthermia: No Meds Allergies/Adverse Reactions: Allergies Allergy/AdvReac Type Severity Reaction Status Date / Time No Known Allergies Allergy Verified 05/16/17 09:30 - Medications Medications: Current Medications Allopurinol (Zyloprim) 100 mg PO DAILY [facility] Apixaban (Eliquis) 2.5 mg PO BID [facility] Aspirin (Ecotrin) 81 mg PO DAILY [facility] Carvedilol (Coreg) 25 mg PO BID [facility] Last Admin: 07/07/18 19:38 Dose: 25 mg Diltiazem HCl (Cardizem Cd) 180 mg PO DAILY [facility] Last Admin: 07/07/18 10:16 Dose: 180 mg Docusate Sodium (Colace) 100 mg PO BID [facility] Finasteride (Proscar) 5 mg PO DAILY [facility] Last Admin: 07/07/18 10:02 Dose: Not Given Lactulose (Enulose) 10 gm PO BID [facility] Last Admin: 07/07/18 19:40 Dose: 10 gm Magnesium Hydroxide (Milk Of Magnesia) 30 ml PO DAILY [facility] Last Admin: 07/07/18 17:38 Dose: 30 ml Rosuvastatin Calcium (Crestor) 5 mg PO HS [facility] Last Admin: 07/07/18 21:36 Dose: 5 mg Sitagliptin Phosphate (Januvia) 50 mg PO DAILY [facility] Last Admin: 07/07/18 10:02 Dose: Not Given Zolpidem Tartrate (Ambien) 5 mg PO HS PRN PRN Reason: Insomnia Last Admin: 07/07/18 21:35 Dose: 5 mg Physical Exam - Constitutional Appears: No Acute Distress - Head Exam Head Exam: ATRAUMATIC, NORMOCEPHALIC - Eye Exam Eye Exam: EOMI, PERRL - Neck Exam Neck exam: Negative for: Lymphadenopathy, Thyromegaly - Respiratory Exam Respiratory Exam: NORMAL BREATHING PATTERN. absent: Rales, Rhonchi, Wheezes - Cardiovascular Exam Cardiovascular Exam: REGULAR RHYTHM, +S1, +S2. absent: Gallop, Rubs, Systolic Murmur - GI/Abdominal Exam GI & Abdominal Exam: Normal Bowel Sounds, Soft. absent: Mass, Organomegaly, Tenderness - Rectal Exam Rectal Exam: Deferred - Extremities Exam Extremities exam: Negative for: calf tenderness, pedal edema Results - Vital Signs Recent Vital Signs: Last Vital Signs Temp 97.9 F 07/08/18 07:15 Pulse 75 07/08/18 07:15 Resp 20 07/08/18 07:15 BP 109/69 07/08/18 07:15 Pulse Ox 95 07/08/18 07:15 - Labs Result Diagrams: 07/08/18 06:52 07/08/18 06:52 Labs: Laboratory Results - last 24 hr 07/07/18 07/07/18 07/07/18 11:35 17:01 21:13 WBC RBC Hgb Hct MCV MCH MCHC RDW Plt Count MPV Neut % (Auto) Lymph % (Auto) [place] % (Auto) Eos % (Auto) Baso % (Auto) Neut # (Auto) Lymph # (Auto) [place] # (Auto) Eos # (Auto) Baso # (Auto) Sodium Potassium Chloride Carbon Dioxide Anion Gap BUN Creatinine Est GFR ( Amer) Est GFR (Non-Af Amer) POC Glucose (mg/dL) 114 H 127 H 130 H Random Glucose Calcium Phosphorus Magnesium Total Bilirubin AST ALT Alkaline Phosphatase Total Protein Albumin Globulin Albumin/Globulin Ratio 07/08/18 07/08/18 07/08/18 06:21 06:52 06:52 WBC 8.4 RBC 3.99 Hgb 11.6 Hct 35.0 MCV 87.8 MCH 29.1 MCHC 33.1 RDW 13.8 Plt Count 404 H MPV 7.3 Neut % (Auto) 73.7 Lymph % (Auto) 14.9 L [place] % (Auto) 8.9 Eos % (Auto) 2.0 Baso % (Auto) 0.5 Neut # (Auto) 6.2 Lymph # (Auto) 1.2 [place] # (Auto) 0.7 Eos # (Auto) 0.2 Baso # (Auto) 0.0 Sodium 138 Potassium 3.9 Chloride 105 Carbon Dioxide 26 Anion Gap 12 BUN 14 Creatinine 0.9 Est GFR ( Amer) > 60 Est GFR (Non-Af Amer) 60 POC Glucose (mg/dL) 129 H Random Glucose 120 H Calcium 8.7 Phosphorus 3.3 Magnesium 1.7 Total Bilirubin 0.4 AST 27 ALT 23 Alkaline Phosphatase 63 Total Protein 6.1 L Albumin 3.4 L Globulin 2.7 Albumin/Globulin Ratio 1.3 Assessment & Plan (1) Diverticular disease of colon Assessment and Plan: Patient has uncomplicated diverticular disease of the colon. Will recommend high fiber diet and/or fiber supplement such as Metamucil. Status: Acute (2) History of colon polyps Assessment and Plan: Patient has a history of colon polyps. One of the polyps was not removed, and she will be scheduled for colonoscopy once she recuperates from the recent rectal surgery. Status: Acute
--- NOTE | 2018-07-08 12:59 | CP.PCM.PN ---
Subjective - Date & Time of Evaluation Date of Evaluation: 07/08/18 Time of Evaluation: 12:55 - Subjective Subjective: No cardiac complaints Post op rectal prolapse repair denies fevers, chills, N/V No CP Objective - Vital Signs/Intake and Output Vital Signs (last 24 hours): Temp Pulse Resp BP Pulse Ox 97.9 F 75 20 111/66 95 07/08/18 07:15 07/08/18 07:15 07/08/18 07:15 07/08/18 11:00 07/08/18 07:15 - Medications Medications: Current Medications Allopurinol (Zyloprim) 100 mg PO DAILY [facility] Last Admin: 07/08/18 10:59 Dose: 100 mg Apixaban (Eliquis) 2.5 mg PO BID [facility] Last Admin: 07/08/18 10:59 Dose: 2.5 mg Aspirin (Ecotrin) 81 mg PO DAILY [facility] Last Admin: 07/08/18 11:00 Dose: 81 mg Carvedilol (Coreg) 25 mg PO BID [facility] Last Admin: 07/08/18 11:00 Dose: 25 mg Diltiazem HCl (Cardizem Cd) 180 mg PO DAILY [facility] Last Admin: 07/08/18 10:59 Dose: 180 mg Docusate Sodium (Colace) 100 mg PO BID [facility] Last Admin: 07/08/18 10:59 Dose: 100 mg Finasteride (Proscar) 5 mg PO DAILY [facility] Last Admin: 07/08/18 10:59 Dose: 5 mg Lactulose (Enulose) 10 gm PO BID [facility] Last Admin: 07/08/18 11:04 Dose: Not Given Magnesium Hydroxide (Milk Of Magnesia) 30 ml PO DAILY [facility] Last Admin: 07/08/18 11:04 Dose: Not Given Rosuvastatin Calcium (Crestor) 5 mg PO HS [facility] Last Admin: 07/07/18 21:36 Dose: 5 mg Sitagliptin Phosphate (Januvia) 50 mg PO DAILY [facility] Last Admin: 07/08/18 10:59 Dose: 50 mg Zolpidem Tartrate (Ambien) 5 mg PO HS PRN PRN Reason: Insomnia Last Admin: 07/07/18 21:35 Dose: 5 mg - Labs Labs: 07/08/18 06:52 07/08/18 06:52 PT 12.1 SECONDS (9.7-12.2) 07/07/18 07:18 INR 1.1 07/07/18 07:18 APTT 30 SECONDS (21-34) D 07/07/18 07:18 - Constitutional Appears: No Acute Distress - Head Exam Head Exam: ATRAUMATIC, NORMOCEPHALIC - Eye Exam Eye Exam: EOMI, Normal appearance. absent: Scleral icterus - ENT Exam ENT Exam: Mucous Membranes Moist, Normal Exam, Normal Oropharynx - Neck Exam Neck Exam: Full ROM - Respiratory Exam Respiratory Exam: Clear to Ausculation Bilateral, NORMAL BREATHING PATTERN. absent: Rales, Rhonchi - Cardiovascular Exam Cardiovascular Exam: Irregular Rhythm, RRR, +S1, +S2. absent: Tachycardia, JVD, Murmur - GI/Abdominal Exam GI & Abdominal Exam: Normal Bowel Sounds - Extremities Exam Extremities Exam: Full ROM, Normal Capillary Refill, Normal Inspection. absent: Calf Tenderness - Back Exam Back Exam: NORMAL INSPECTION - Neurological Exam Neurological Exam: Alert, Awake, Oriented x3 - Psychiatric Exam Psychiatric exam: Normal Affect, Normal Mood - Skin Skin Exam: Intact, Normal Color, Warm Assessment and Plan - Assessment and Plan (Free Text) Assessment: 2D echo from 03/2018 images viewed by me: Normal LV systolic funciton, atrial fibrillation, concentric LVH, LAE A/P: 82 year old female with rectal prolapse s/p surgery. - Recovery as anticipated - There were no perioperative cardiac complications HTN is chronic and stable on coreg and cardizem Atrial fibrillation - cont rate control with coreg - eliquis 2.5 is resumed and H/H is stable DM is chornic and stable on Januvia, insulin sliding scale. Patient remains without signs of CAD, acute CHF or symptomatic arrythmia continue medical therapy Will sign off call if questions
--- NOTE | 2018-07-08 20:41 | CARD ---
APPROVED REPORT Date of service: 07/07/2018 EKG Measurement Heart [id number] <Conclusion> Atrial fibrillation Nonspecific ST and T wave abnormality Abnormal ECG
--- NOTE | 2018-07-08 20:44 | CP.PCM.CON ---
Past Patient History - Past Medical History & Family History Past Medical History?: Yes - Past Social History Smoking Status: Never Smoked - CARDIAC Hx Cardia Arrhythmia: Yes Hx Hypercholesterolemia: Yes Hx Hypertension: Yes - PULMONARY Hx Asthma: Yes - NEUROLOGICAL HX Cerebrovascular Accident: Yes - HEENT Hx HEENT Problems: Yes Other/Comment: USES GLASSES FOR READING - RENAL Hx Chronic Kidney Disease: Yes - ENDOCRINE/METABOLIC Hx Endocrine Disorders: Yes Hx Diabetes Mellitus Type 1: Yes - HEMATOLOGICAL/ONCOLOGICAL Hx Blood Disorders: No - INTEGUMENTARY Hx Dermatological Problems: No - MUSCULOSKELETAL/RHEUMATOLOGICAL Hx Falls: Yes Hx Rheumatoid Arthritis: Yes - GASTROINTESTINAL Hx Gastrointestinal Disorders: Yes Other/Comment: RECTAL POLYP - GENITOURINARY/GYNECOLOGICAL Hx Genitourinary Disorders: No Hx Incontinence: Yes - PSYCHIATRIC Hx Depression: Yes Hx Substance Use: No - SURGICAL HISTORY Hx Surgeries: Yes Other/Comment: BREAST REDUCTION 1990, TUMMY TUCK 1990. colonoscopy; colorectal - ANESTHESIA Hx Anesthesia: Yes Hx Anesthesia Reactions: No Hx Malignant Hyperthermia: No Meds Allergies/Adverse Reactions: Allergies Allergy/AdvReac Type Severity Reaction Status Date / Time No Known Allergies Allergy Verified 05/16/17 09:30 - Medications Medications: Current Medications Allopurinol (Zyloprim) 100 mg PO DAILY [facility] Last Admin: 07/08/18 10:59 Dose: 100 mg Apixaban (Eliquis) 2.5 mg PO BID [facility] Last Admin: 07/08/18 17:43 Dose: 2.5 mg Aspirin (Ecotrin) 81 mg PO DAILY [facility] Last Admin: 07/08/18 11:00 Dose: 81 mg Carvedilol (Coreg) 25 mg PO BID [facility] Last Admin: 07/08/18 17:43 Dose: 25 mg Diltiazem HCl (Cardizem Cd) 180 mg PO DAILY [facility] Last Admin: 07/08/18 10:59 Dose: 180 mg Docusate Sodium (Colace) 100 mg PO BID [facility] Last Admin: 07/08/18 17:43 Dose: Not Given Finasteride (Proscar) 5 mg PO DAILY [facility] Last Admin: 07/08/18 10:59 Dose: 5 mg Lactulose (Enulose) 10 gm PO BID [facility] Last Admin: 07/08/18 17:43 Dose: Not Given Magnesium Hydroxide (Milk Of Magnesia) 30 ml PO DAILY [facility] Last Admin: 07/08/18 11:04 Dose: Not Given Rosuvastatin Calcium (Crestor) 5 mg PO HS [facility] Last Admin: 07/07/18 21:36 Dose: 5 mg Sitagliptin Phosphate (Januvia) 50 mg PO DAILY [facility] Last Admin: 07/08/18 10:59 Dose: 50 mg Zolpidem Tartrate (Ambien) 5 mg PO HS PRN PRN Reason: Insomnia Last Admin: 07/07/18 21:35 Dose: 5 mg Results - Vital Signs Recent Vital Signs: Last Vital Signs Temp 98.4 F 07/08/18 15:49 Pulse 77 07/08/18 15:49 Resp 20 07/08/18 15:49 BP 120/65 07/08/18 17:43 Pulse Ox 96 07/08/18 15:49 - Labs Result Diagrams: 07/08/18 06:52 07/08/18 06:52 Labs: Laboratory Results - last 24 hr 07/07/18 07/08/18 07/08/18 21:13 06:21 06:52 WBC 8.4 RBC 3.99 Hgb 11.6 Hct 35.0 MCV 87.8 MCH 29.1 MCHC 33.1 RDW 13.8 Plt Count 404 H MPV 7.3 Neut % (Auto) 73.7 Lymph % (Auto) 14.9 L [place] % (Auto) 8.9 Eos % (Auto) 2.0 Baso % (Auto) 0.5 Neut # (Auto) 6.2 Lymph # (Auto) 1.2 [place] # (Auto) 0.7 Eos # (Auto) 0.2 Baso # (Auto) 0.0 Sodium Potassium Chloride Carbon Dioxide Anion Gap BUN Creatinine Est GFR ( Amer) Est GFR (Non-Af Amer) POC Glucose (mg/dL) 130 H 129 H Random Glucose Calcium Phosphorus Magnesium Total Bilirubin AST ALT Alkaline Phosphatase Total Protein Albumin Globulin Albumin/Globulin Ratio 07/08/18 07/08/18 06:52 11:27 WBC RBC Hgb Hct MCV MCH MCHC RDW Plt Count MPV Neut % (Auto) Lymph % (Auto) [place] % (Auto) Eos % (Auto) Baso % (Auto) Neut # (Auto) Lymph # (Auto) [place] # (Auto) Eos # (Auto) Baso # (Auto) Sodium 138 Potassium 3.9 Chloride 105 Carbon Dioxide 26 Anion Gap 12 BUN 14 Creatinine 0.9 Est GFR ( Amer) > 60 Est GFR (Non-Af Amer) 60 POC Glucose (mg/dL) 129 H Random Glucose 120 H Calcium 8.7 Phosphorus 3.3 Magnesium 1.7 Total Bilirubin 0.4 AST 27 ALT 23 Alkaline Phosphatase 63 Total Protein 6.1 L Albumin 3.4 L Globulin 2.7 Albumin/Globulin Ratio 1.3 Assessment & Plan - Assessment and Plan (Free Text) Assessment: UROLOGY CONSULTATION IMP: RECTAL PROLAPSE HX OF CYSTOCELE S/P L&D X4 NO APPARENT ACUTE UROLOGIC PROBLEM AT PRESENT DISCUSSED W PT AND LESLIE REC: OUTPATIENT F/U. THANK YOU YS - Date & Time Date: 07/08/18 Time: 20:25
[2018-07-09 07:18] LABS: BASO % 0.7 % (0.0-2.0); EOS # 0.2 K/uL (0.0-0.7); EOS % 2.6 % (0.0-4.0); HEMOGLOBIN 12.2 g/dL (11.0-16.0); LYMPH # 1.8 K/uL (1.0-4.3); LYMPH % 25.1 % (20.0-40.0); MEAN CELL VOLUME 88.3 fL (81.0-99.0); MEAN CORPUSCULAR HGB CONC 32.8 g/dL (33.0-37.0); MEAN PLATELET VOLUME 7.4 fL (7.2-11.7); MONO # 0.7 K/uL (0.0-0.8); MONO % 9.1 % (0.0-10.0); NEUT # 4.6 K/uL (1.8-7.0); NEUT % 62.5 % (50.0-75.0); NRBC % 0.1 % (0.0-2.0); RBC 4.22 Mil/uL (3.80-5.20); RED CELL DISTRIBUTION WIDTH 14.2 % (11.5-14.5); WHITE BLOOD COUNT 7.4 K/uL (4.8-10.8)
[2018-07-09 07:40] LABS: ALB/GLOB RATIO 1.2 (1.0-2.1); ALBUMIN 3.4 g/dL (3.5-5.0); ALT/SGPT 18 U/L (9-52); AST/SGOT 23 U/L (14-36); BLOOD UREA NITROGEN 17 mg/dL (7-17); GFR NON-AFRICAN AMERICAN 60
[2018-07-09 09:24] VITALS: BP 131/69; PULSE 73; RESP 18; TEMP 98.1; O2SAT 98
[2018-07-09] MEDS: diltiaZEM 180 mg/24 Hours CD Cap PO SCH (10:10)
[2018-07-09] MEDS: Magnesium Hydroxide Susp 30 ml UD PO SCH (10:13)
--- NOTE | 2018-07-09 13:16 | CP.PCM.PN ---
Subjective - Date & Time of Evaluation Date of Evaluation: 07/09/18 Time of Evaluation: 07:00 - Subjective Subjective: Medicine progress note (Dr. Boswell's service) Patient was seen and examined at bedside, while resting in bed comfortably. Patient denies any acute issues. Patient had two bowel movements yesterday. Patient denies any symptoms of fever, chills, nausea, vomiting, chest pain, palpitations, shortness of breath, abdominal pain, hematochezia and urinary symptoms. Objective - Vital Signs/Intake and Output Vital Signs (last 24 hours): Temp Pulse Resp BP Pulse Ox 98.1 F 73 18 131/69 98 07/09/18 08:00 07/09/18 08:00 07/09/18 08:00 07/09/18 10:23 07/09/18 08:00 Intake and Output: 07/09/18 07/09/18 06:59 18:59 Intake Total 500 Balance 500 - Medications Medications: Current Medications Allopurinol (Zyloprim) 100 mg PO DAILY [facility] Last Admin: 07/09/18 10:10 Dose: 100 mg Apixaban (Eliquis) 2.5 mg PO BID [facility] Last Admin: 07/09/18 10:10 Dose: 2.5 mg Aspirin (Ecotrin) 81 mg PO DAILY [facility] Last Admin: 07/09/18 10:11 Dose: 81 mg Carvedilol (Coreg) 25 mg PO BID [facility] Last Admin: 07/09/18 10:23 Dose: 25 mg Diltiazem HCl (Cardizem Cd) 180 mg PO DAILY [facility] Last Admin: 07/09/18 10:10 Dose: 180 mg Docusate Sodium (Colace) 100 mg PO BID [facility] Last Admin: 07/09/18 10:23 Dose: 100 mg Finasteride (Proscar) 5 mg PO DAILY [facility] Last Admin: 07/09/18 10:10 Dose: 5 mg Lactulose (Enulose) 10 gm PO BID [facility] Last Admin: 07/09/18 10:11 Dose: 10 gm Magnesium Hydroxide (Milk Of Magnesia) 30 ml PO DAILY [facility] Last Admin: 07/09/18 10:13 Dose: 30 ml Rosuvastatin Calcium (Crestor) 5 mg PO HS [facility] Last Admin: 07/08/18 21:35 Dose: 5 mg Sitagliptin Phosphate (Januvia) 50 mg PO DAILY [facility] Last Admin: 07/09/18 10:11 Dose: 50 mg Zolpidem Tartrate (Ambien) 5 mg PO HS PRN PRN Reason: Insomnia Last Admin: 07/08/18 21:35 Dose: 5 mg - Labs Labs: 07/09/18 06:50 07/09/18 06:50 PT 12.1 SECONDS (9.7-12.2) 07/07/18 07:18 INR 1.1 07/07/18 07:18 APTT 30 SECONDS (21-34) D 07/07/18 07:18 - Additional Findings Additional findings: - Constitutional Appears: No Acute Distress - Head Exam Head Exam: ATRAUMATIC - Eye Exam Eye Exam: EOMI, Normal appearance - ENT Exam ENT Exam: Mucous Membranes Moist - Respiratory Exam Respiratory Exam: Clear to Ausculation Bilateral, NORMAL BREATHING PATTERN. absent: Chest Wall Tenderness, Prolonged Expiratory Phase, Rhonchi, Wheezes, Respiratory Distress - Cardiovascular Exam Cardiovascular Exam: Irregular Rhythm, +S1, +S2. absent: Murmur - GI/Abdominal Exam GI & Abdominal Exam: Soft, Normal Bowel Sounds. absent: Distended, Firm, Guarding, Rigid, Tenderness - Rectal Exam Additional comments: s/p Thiersch Procedure; dressing is clean, dry and intact - Extremities Exam Extremities Exam: Normal Inspection. absent: Calf Tenderness, Pedal Edema - Back Exam Back Exam: NORMAL INSPECTION - Neurological Exam Neurological Exam: Alert, Awake, Oriented x3 - Psychiatric Exam Psychiatric exam: Normal Affect - Skin Skin Exam: Normal Color Assessment and Plan - Assessment and Plan (Free Text) Assessment: (1) Rectal prolapse Assessment & Plan: Consultation: General Surgery, Dr. Veloz---> Help appreciated * S/P Thiersch Procedure (07/07/17) * Patient has had 2 bowel movement post procedure * Continue Milk of magnesia 30ml PO daily * Lactulose 20gm PO BID Imaging: Abdomen/pelvis CT: Colonic diverticulosis. Rectal prolapse. Prior rectal renal surgery. No obstruction. No gross mural thickening. Moderate bilateral fat containing inguinal hernias. Small fat containing umbilical hernia. No free fluid. No free air. No acute fracture. Multilevel spinal degenerative changes. Grade 1 anterolisthesis of L5 on S1. Rectal prolapse. Status: Acute (2) History of atrial fibrillation Assessment & Plan: [employer], Dr. Saavedra---> Help appreciated Carvedilol 25mg po BID Cardizem 180 mg po daily Eliquis 2.5mg po BID Aspirin 81mg po daily Status: Acute (3) Diabetes mellitus Assessment & Plan: HgbA1C (03/20/18): 6.1 Accuchecks Januvia 50mg PO daily Status: Acute (4) Hyperlipidemia Assessment & Plan: Lipid panel (03/20/18) -TGL: 187, Chol:130, HDL:37 and LDL: 57 Crestor 5mg PO HS Status: Acute (5) Gout Assessment & Plan: Allopurinol 100mg po daily Status: Acute (6) Insomnia Assessment & Plan: Ambien 5mg po HS prn Status: Acute (7) Cystocele Assessment & Plan: Urology, Dr. Zulay Padron * Management as per recommendation Status: Acute (8) History of colon polyps Assessment & Plan: GI, Dr. Valente * Management as per recommendation Status: Acute (9) Prophylactic measure Assessment & Plan: DVT: Eliquis 2.5mg po BID GI: Not indicated Status: Acute All plans and management discussed with Dr. Boswell Dispo: Patient stable for discharge. Patient to stay on stool softeners as an outpatient. Patient to see Dr. Veloz within one week.
--- NOTE | 2018-07-09 13:39 | CP.PCM.PN ---
Subjective - Date & Time of Evaluation Date of Evaluation: 07/09/18 Time of Evaluation: 07:00 - Subjective Subjective: Surgery progress note for Dr. Veloz Patient seen and examined at bedside. No overnight events reported. Patient states she is feeling fine and has no complaints. Patient does not remember if she had bowel movement; however, per nursing staff, patient family endorsed 2 bowel movements yesterday. Patient denies headaches, chest pain, nausea, vomiting, abdominal pain. Objective - Vital Signs/Intake and Output Vital Signs (last 24 hours): Temp Pulse Resp BP Pulse Ox 98.1 F 73 18 131/69 98 07/09/18 08:00 07/09/18 08:00 07/09/18 08:00 07/09/18 10:23 07/09/18 08:00 Intake and Output: 07/09/18 07/09/18 06:59 18:59 Intake Total 500 Balance 500 - Medications Medications: Current Medications Allopurinol (Zyloprim) 100 mg PO DAILY [facility] Last Admin: 07/09/18 10:10 Dose: 100 mg Apixaban (Eliquis) 2.5 mg PO BID [facility] Last Admin: 07/09/18 10:10 Dose: 2.5 mg Aspirin (Ecotrin) 81 mg PO DAILY [facility] Last Admin: 07/09/18 10:11 Dose: 81 mg Carvedilol (Coreg) 25 mg PO BID [facility] Last Admin: 07/09/18 10:23 Dose: 25 mg Diltiazem HCl (Cardizem Cd) 180 mg PO DAILY [facility] Last Admin: 07/09/18 10:10 Dose: 180 mg Docusate Sodium (Colace) 100 mg PO BID [facility] Last Admin: 07/09/18 10:23 Dose: 100 mg Finasteride (Proscar) 5 mg PO DAILY [facility] Last Admin: 07/09/18 10:10 Dose: 5 mg Lactulose (Enulose) 10 gm PO BID [facility] Last Admin: 07/09/18 10:11 Dose: 10 gm Magnesium Hydroxide (Milk Of Magnesia) 30 ml PO DAILY [facility] Last Admin: 07/09/18 10:13 Dose: 30 ml Rosuvastatin Calcium (Crestor) 5 mg PO [facility] Last Admin: 07/08/18 21:35 Dose: 5 mg Sitagliptin Phosphate (Januvia) 50 mg PO DAILY [facility] Last Admin: 07/09/18 10:11 Dose: 50 mg Zolpidem Tartrate (Ambien) 5 mg PO HS PRN PRN Reason: Insomnia Last Admin: 07/08/18 21:35 Dose: 5 mg - Labs Labs: 07/09/18 06:50 07/09/18 06:50 PT 12.1 SECONDS (9.7-12.2) 07/07/18 07:18 INR 1.1 07/07/18 07:18 APTT 30 SECONDS (21-34) D 07/07/18 07:18 - Constitutional Appears: Non-toxic, No Acute Distress - Head Exam Head Exam: NORMAL INSPECTION - Eye Exam Eye Exam: Normal appearance - Respiratory Exam Respiratory Exam: NORMAL BREATHING PATTERN - Cardiovascular Exam Additional comments: RR - Rectal Exam Additional comments: Patient has paper towels in underwear, some soiling present, incisions dry and intact - Extremities Exam Extremities Exam: absent: Pedal Edema - Neurological Exam Neurological Exam: Alert, Awake - Psychiatric Exam Psychiatric exam: Normal Mood - Skin Skin Exam: Normal Color, Warm Assessment and Plan - Assessment and Plan (Free Text) Assessment: 82F POD#2 s/p Thiersch procedure Plan: No further surgical intervention at this time Need to keep stools soft to allow passage. Continue Mag citrate daily Colace BID Follow up GI and Urology recs F/u w/ Dr. Veloz outpatient in 1 week D/W Dr. Magdiel Steiner, PGY1
--- NOTE | 2018-07-09 13:50 | CP.PCM.PN ---
Subjective - Date & Time of Evaluation Date of Evaluation: 07/09/18 Time of Evaluation: 07:00 - Subjective Subjective: PGY2- Progress Note for Dr. Boswell Patient seen and examined at bedside and in no acute distress. Patient was seen and examined at bedside, while resting in bed comfortably. Patient has no complaints. Patient had two bowel movements yesterday. Patient denies any symptoms of fevers, chills, nausea, vomiting, chest pain, palpitations, shortness of breath, abdominal pain, hematochezia or urinary symptoms. Objective - Vital Signs/Intake and Output Vital Signs (last 24 hours): Temp Pulse Resp BP Pulse Ox 98.1 F 73 18 131/69 98 07/09/18 08:00 07/09/18 08:00 07/09/18 08:00 07/09/18 10:23 07/09/18 08:00 Intake and Output: 07/09/18 07/09/18 06:59 18:59 Intake Total 500 Balance 500 - Medications Medications: Current Medications Allopurinol (Zyloprim) 100 mg PO DAILY [facility] Last Admin: 07/09/18 10:10 Dose: 100 mg Apixaban (Eliquis) 2.5 mg PO BID [facility] Last Admin: 07/09/18 10:10 Dose: 2.5 mg Aspirin (Ecotrin) 81 mg PO DAILY [facility] Last Admin: 07/09/18 10:11 Dose: 81 mg Carvedilol (Coreg) 25 mg PO BID [facility] Last Admin: 07/09/18 10:23 Dose: 25 mg Diltiazem HCl (Cardizem Cd) 180 mg PO DAILY [facility] Last Admin: 07/09/18 10:10 Dose: 180 mg Docusate Sodium (Colace) 100 mg PO BID [facility] Last Admin: 07/09/18 10:23 Dose: 100 mg Finasteride (Proscar) 5 mg PO DAILY [facility] Last Admin: 07/09/18 10:10 Dose: 5 mg Lactulose (Enulose) 10 gm PO BID [facility] Last Admin: 07/09/18 10:11 Dose: 10 gm Magnesium Hydroxide (Milk Of Magnesia) 30 ml PO DAILY [facility] Last Admin: 07/09/18 10:13 Dose: 30 ml Rosuvastatin Calcium (Crestor) 5 mg PO HS [facility] Last Admin: 07/08/18 21:35 Dose: 5 mg Sitagliptin Phosphate (Januvia) 50 mg PO DAILY [facility] Last Admin: 07/09/18 10:11 Dose: 50 mg Zolpidem Tartrate (Ambien) 5 mg PO HS PRN PRN Reason: Insomnia Last Admin: 07/08/18 21:35 Dose: 5 mg - Labs Labs: 07/09/18 06:50 07/09/18 06:50 PT 12.1 SECONDS (9.7-12.2) 07/07/18 07:18 INR 1.1 07/07/18 07:18 APTT 30 SECONDS (21-34) D 07/07/18 07:18 - Constitutional Appears: Non-toxic, No Acute Distress - Head Exam Head Exam: ATRAUMATIC, NORMAL INSPECTION, NORMOCEPHALIC - Eye Exam Eye Exam: EOMI, Normal appearance - ENT Exam ENT Exam: Mucous Membranes Moist - Respiratory Exam Respiratory Exam: Clear to Ausculation Bilateral, NORMAL BREATHING PATTERN - Cardiovascular Exam Cardiovascular Exam: REGULAR RHYTHM, RRR, +S1, +S2 - GI/Abdominal Exam GI & Abdominal Exam: Soft, Normal Bowel Sounds. absent: Tenderness - Extremities Exam Extremities Exam: Full ROM, Normal Inspection. absent: Pedal Edema, Tenderness
== END 2018-07-09 16:11 | disposition home or self-care (01) | DRG 330 ==
LOC: C.ER 09:13 → C.9E 11:48 → C.6T 07-05 01:23
PROVIDERS: ADMIT Internal Medicine Pulmonary Disease; ATTEND Internal Medicine Pulmonary Disease
PROC: 0DQP0ZZ Repair Rectum, Open Approach (ICD-10-PCS; principal; 2018-07-07 12:00)
DX: K62.3 Rectal prolapse (principal); K62.5 Hemorrhage of anus and rectum; N81.10 Cystocele, unspecified; I12.9 Hypertensive chronic kidney disease with stage 1 through stage 4 chronic kidney disease, or unspecified chronic kidney disease; I48.91 Unspecified atrial fibrillation; G47.00 Insomnia, unspecified; E10.22 Type 1 diabetes mellitus with diabetic chronic kidney disease; N18.9 Chronic kidney disease, unspecified; E78.00 Pure hypercholesterolemia, unspecified; M06.9 Rheumatoid arthritis, unspecified; Z79.4 Long term (current) use of insulin; K57.30 Diverticulosis of large intestine without perforation or abscess without bleeding; Z86.010 Personal history of colon polyps

== ENCOUNTER 2018-10-13 15:52 | Inpatient (IN) | payer MEDICARE, MEDICAID ==
[2018-10-13 15:53] VITALS: BMI 28.9
--- NOTE | 2018-10-13 17:04 | C.PDOC ---
History Of Present Illness 83 y/o female, with history of stroke, a-fib and on eliquis, comes in to ED with complaints of left knee pain from a fall 2 weeks ago. States pain is better but now persistent. Reports she has never been previously imaged. Patient also complains of cough. Denies fever or other complaints. Time Seen by Provider: 10/13/18 17:00 Chief Complaint (Nursing): Lower Extremity Problem/Injury History Per: Patient History/Exam Limitations: no limitations Onset/Duration Of Symptoms: Days Current Symptoms Are (Timing): Still Present Past Medical History Reviewed: Historical Data, Nursing Documentation, Vital Signs Vital Signs: Last Vital Signs Temp 97.6 F 10/13/18 16:11 Pulse 97 H 10/13/18 16:11 Resp 18 10/13/18 16:11 BP 104/71 10/13/18 16:11 Pulse Ox 96 10/13/18 16:11 Primary Care Provider: Erickson Muñoz - Medical History PMH: Asthma, Cardia Arrhythmia, Depression, HTN, Hypercholesterolemia, Chronic Kidney Disease, Rheumatoid Arthritis - [facility] Procedures REPAIR RECTUM, OPEN APPROACH (07/04/18) RESECTION OF RECTUM, OPEN APPROACH (05/27/17) Family History: States: No Known Family Hx - Social History Hx Alcohol Use: No Hx Substance Use: No - Immunization History Hx Tetanus Toxoid Vaccination: No Hx Influenza Vaccination: Yes Hx Pneumococcal Vaccination: No Review Of Systems Except As Marked, All Systems Reviewed And Found Negative. Constitutional: Negative for: Fever, Chills Cardiovascular: Negative for: Chest Pain Respiratory: Positive for: Cough. Negative for: Shortness of Breath Gastrointestinal: Negative for: Nausea, Vomiting, Abdominal Pain Musculoskeletal: Positive for: Other (left knee pain). Negative for: Back Pain Physical Exam - Physical Exam Appears: Non-toxic, No Acute Distress Skin: Warm, Dry Head: Normacephalic Eye(s): bilateral: Normal Inspection Oral Mucosa: Moist Neck: Supple Cardiovascular: Rhythm Regular, No Murmur Respiratory: Normal Breath Sounds, No Rales, Rhonchi (mild scattered rhonchi), No Wheezing Gastrointestinal/Abdominal: Soft, No Tenderness Extremity: Bilateral: Atraumatic, Normal ROM Neurological/Psych: Oriented x3, Normal Speech ED Course And Treatment - Laboratory Results Result Diagrams: 10/15/18 08:39 10/15/18 08:39 O2 Sat by Pulse Oximetry: 96 (RA) Pulse Ox Interpretation: Normal Medical Decision Making Medical Decision Making: ro fx, pna Plan: --Chest XR --Left Knee XR cxr rll inifltrate as read by me. noted minimal anemia. brown stool in er, no h/o o f gi bleed. guiac sent. accepted dr michelle. antibiotics given. guiac later note dot be pos. updated pmd miguel angel. Disposition - Disposition Disposition: HOSPITALIZED Disposition Time: 10:00 Condition: STABLE - Clinical Impression Clinical Impression: Pneumonia - Scribe Statement The provider has reviewed the documentation as recorded by the Scribe Debby Brown Provider Attestation: All medical record entries made by the Scribe were at my direction and personally dictated by me. I have reviewed the chart and agree that the record accurately reflects my personal performance of the history, physical exam, medical decision making, and the department course for this patient. I have also personally directed, reviewed, and agree with the discharge instructions and disposition. Decision To Admit - Pt Status Changed To: Hospital Disposition Of: Inpatient - Admit Certification Admit to Inpatient:: After my assessment, the patient will require hospitalization for at least two midnights. This is because of the severity of symptoms shown, intensity of services needed, and/or the medical risk in this patient being treated as an outpatient. - InPatient: Physician Admission Certification: I certify that this patient requires 2 or more midnights of care for the following reason:: needs iv antibiotics - . Bed Request Type: Regular Admitting Physician: Rehana Mcarthur Patient Diagnosis: Pneumonia, Knee pain, Fall, Anemia
[2018-10-13] MEDS ORDERED: Azithromycin 500 MG in Sodium Chloride 0.9% 250 ML IVPB STA (17:24)
[2018-10-13] MEDS ORDERED: Azithromycin 500mg/250ML NS 500 MG/250 ML BAG IVPB ONE (17:39)
[2018-10-13 18:13] LABS: BASO % 0.2 % (0.0-2.0); EOS % 0.3 % (0.0-4.0); HEMOGLOBIN 10.8 g/dL (11.0-16.0); LYMPH # 1.2 K/uL (1.0-4.3); LYMPH % 10.2 % (20.0-40.0); MEAN CELL VOLUME 83.2 fL (81.0-99.0); MEAN CORPUSCULAR HEMOGLOBIN 27.1 pg (27.0-31.0); MEAN CORPUSCULAR HGB CONC 32.5 g/dL (33.0-37.0); MEAN PLATELET VOLUME 6.7 fL (7.2-11.7); MONO # 0.8 K/uL (0.0-0.8); NEUT # 9.9 K/uL (1.8-7.0); NEUT % 82.3 % (50.0-75.0); RBC 3.98 Mil/uL (3.80-5.20)
[2018-10-13 18:24] LABS: INR 1.9; PROTHROMBIN TIME 21.1 SECONDS (9.7-12.2)
[2018-10-13 18:28] LABS: ALBUMIN 3.7 g/dL (3.5-5.0); CALCIUM 9.9 mg/dl (8.6-10.4)
[2018-10-13] MEDS ORDERED: Magnesium Hydroxide Susp 30 ml UD PO ONE (20:35)
[2018-10-13] MEDS: (Novolin R) Insulin Human Regular 100 units/ml vial SC SCH (21:48)
--- NOTE | 2018-10-14 01:05 | CP.PCM.PCO ---
Physician Communication Note - Physician Communication Note Physician Communication Note: Nursing paged requesting sedation for pt. Patient with no complaints howev
[2018-10-14] MEDS: Albuterol-Ipratrop 3 mg / 0.5 (3 ml) UD INH SCH ×3 (01:33→20:28)
[2018-10-14 07:37] LABS: BASO # 0.1 K/uL (0.0-0.2); BASO % 0.5 % (0.0-2.0); EOS % 0.2 % (0.0-4.0); HEMOGLOBIN 10.7 g/dL (11.0-16.0); LYMPH # 1.4 K/uL (1.0-4.3); LYMPH % 14.2 % (20.0-40.0); MEAN CELL VOLUME 82.9 fL (81.0-99.0); MEAN CORPUSCULAR HEMOGLOBIN 28.2 pg (27.0-31.0); MEAN CORPUSCULAR HGB CONC 34.1 g/dL (33.0-37.0); MEAN PLATELET VOLUME 6.8 fL (7.2-11.7); MONO # 0.8 K/uL (0.0-0.8); MONO % 8.4 % (0.0-10.0); NEUT # 7.7 K/uL (1.8-7.0); NEUT % 76.7 % (50.0-75.0); RBC 3.8 Mil/uL (3.80-5.20); RED CELL DISTRIBUTION WIDTH 15.7 % (11.5-14.5)
[2018-10-14 07:43] LABS: INR 1.9; PROTHROMBIN TIME 20.4 SECONDS (9.7-12.2)
--- NOTE | 2018-10-14 07:57 | RAD ---
Date of service: 10/13/2018 PROCEDURE: Left Knee Radiographs. HISTORY: Pain. COMPARISON: None. TECHNIQUE: 2 views obtained. FINDINGS: BONES: No fracture JOINTS: Arthrosis present JOINT EFFUSION: None. OTHER FINDINGS: Atherosclerotic vascular calcifications present. IMPRESSION: ArthrosisAtherosclerotic vascular calcifications present.
[2018-10-14 08:15] LABS: ALBUMIN 3.3 g/dL (3.5-5.0); CALCIUM 9.4 mg/dl (8.6-10.4)
[2018-10-14] MEDS: (Novolin R) Insulin Human Regular 100 units/ml vial SC SCH ×4 (09:11→21:27)
[2018-10-14] MEDS: Budesonide 0.5 mg/2 ml Inhal Susp UD INH SCH ×2 (09:43→20:28)
[2018-10-14] MEDS: Megestrol Acetate 40 mg/ml Cup PO SCH (09:52)
[2018-10-14] MEDS: diltiaZEM 180 mg/24 Hours CD Cap PO SCH (09:52)
[2018-10-14] MEDS: VESICARE 10MG PO SCH (09:52)
[2018-10-14] MEDS ORDERED: Magnesium Hydroxide Susp 30 ml UD PO ONE (10:00)
--- NOTE | 2018-10-14 10:34 | CP.PCM.CON ---
History of Present Illness - History of Present Illness History of Present Illness: 83 F was admitted for GI bleed and pneumonia. Referred for ID evaluation of pneumonia. She is complaining of cough. Denies fever/chills, cp, SOB, abd pain, n/v/d, urinary symptoms. Empiric IV antibiotics in progress pending cultures PMH: Asthma, afib on eliquis, Depression, CVA, HTN, Hypercholesterolemia, Chronic Kidney Disease, Rheumatoid Arthritis, Chronic constipation PSH: Rectal prolapse repair ALL: NKDA Review of Systems - Constitutional Constitutional: As Per HPI, Fever - EENT Eyes: absent: As Per HPI, Blind Spots, Blurred Vision, Change in Vision, Decreased Night Vision, Diplopia, Discharge, Dry Eye, Exophthalmos, Floaters, Irritation, Itchy Eyes, Loss of Peripheral Vision, Pain, Photophobia, Requires Corrective Lenses, Sees Flashes, Spots in Vision, Tunnel Vision, Other Visual Disturbances, Loss of Vision, Other Ears: absent: As Per HPI, Decreased Hearing, Ear Discharge, Ear Pain, Tinnitus, Abnormal Hearing, Disequilibrium, Dizziness, Other Nose/Mouth/Throat: absent: As Per HPI, Epistaxis, Nasal Congestion, Nasal Discharge, Nasal Obstruction, Nasal Trauma, Nose Pain, Post Nasal Drip, Sinus Pain, Sinus Pressure, Bleeding Gums, Change in Voice, Dental Pain, Dry Mouth, Dysphagia, Halitosis, Hoarsness, Lip Swelling, Mouth Lesions, Mouth Pain, Odynophagia, Sore Throat, Throat Swelling, Tongue Swelling, Facial Pain, Neck Pain, Neck Mass, Other - Breasts Breasts: absent: As Per HPI, Change in Shape, Mass, Pain, Nipple Discharge, Nipple Inversion, Skin Changes, Swelling, Other - Cardiovascular Cardiovascular: As Per HPI - Respiratory Respiratory: As Per HPI, Cough. absent: Hemoptysis - Gastrointestinal Gastrointestinal: As Per HPI, Constipation, Hematochezia - Genitourinary Genitourinary: absent: As Per HPI, Change in Urinary Stream, Difficulty Urinating, Dysuria, Flank Pain, Hematuria, Pyuria, Nocturia, Urinary Incontinence, Urinary Frequency, Urinary Hesitance, Urinary Urgency, Voiding Freq/Small Amts, Freq UTI, Hx Renal/Bladder Calculi, Hx /Renal Surgery, Bladder Distension, Other - Reproductive: Female Reproductive:Female: absent: As Per HPI, Amenorrhea, Amenorrhea/ Control, Currently Menstual, Cycle <21 Days, Cycle >35 Days, Cycle Variable, Menses 1-7 Days, Menses >/= 8 Days, Menses Variable, Cycle > 4 Weeks Between, No Menses for 6 Months, Heavy Menses, Light Menses, Normal Menses, Spotting Between Cycles, S/P Hysterectomy, Menopausal, Post Menopausal, Premenarche, Abnormal Vaginal Bleeding, Dysmenorrhea, Dyspareunia, Genital Lesions, Genital Pruritis, Pelvic Pain, Prolapse Symptoms, Sexual Dysfunction, Vaginal Discharge, Vaginal Dryness, Vaginal Odor, Vaginal Pruritis, Other - Menstruation Menstruation: absent: As Per HPI, Amenorrhea, Amenorrhea/ Control, Currently Menstual, Cycle <21 Days, Cycle >35 Days, Cycle Variable, Menses 1-7 Days, Menses >/= 8 Days, Menses Variable, Cycle > 4 Weeks Between, No Menses for 6 Months, Heavy Menses, Light Menses, Normal Menses, Spotting Between Cycles, S/P Hysterectomy, Menopausal, Post Menopausal, Premenarche, Abnormal Vaginal Bleeding, Dysmenorrhea, Other - Musculoskeletal Musculoskeletal: absent: As Per HPI, Abnormal Gait, Arthralgias, Atrophy, Back Pain, Deformity, Joint Swelling, Limited Range of Motion, Loss of Height, Muscle Cramps, Muscle Weakness, Myalgias, Neck Pain, Numbness, Radiating Pain into Limb, Stiffness, Tingling, Other - Integumentary Integumentary: absent: As Per HPI, Acne, Alopecia, Bleeding Lesions, Change in Hair, Change in Nails, Change in Pigmentation, Changing Lesions, Dry Skin, Eryt louann, Furuncle, Hirsutism, Lesions, New Lesions, Non-Healing Lesions, Photosensitivity, Pruritus, Rash, Skin Pain, Skin Ulcer, Sores, Striae, Swelling, Unusual Bruising, Wounds, Jaundice, Other - Neurological Neurological: absent: As Per HPI, Abnormal Gait, Abnormal Hearing, Abnormal Movements, Abnormal Speech, Behavioral Changes, Burning Sensations, Confusion, Convulsions, Disequilibrium, Dizziness, Numbness, Focal Weakness, Frequent Falls, Headaches, Lack of Coordination, Loss of Vision, Memory Loss, Paresthesias, Radicular Pain, Restless Legs, Sensory Deficit, Syncope, Tingling, Tremor, Vertigo, Weakness, Other Visual Disturbances, Other - Psychiatric Psychiatric: absent: As Per HPI, Abnormal Sleep Pattern, Anhedonia, Anxiety, Auditory Hallucinations, Behavioral Changes, Change in Appetite, Change in Libido, Confusion, Depression, Difficulty Concentrating, Hallucinations, Homicidal Ideation, Hopelessness, Irritability, Memory Loss, Mood Swings, Panic Attacks, Paranoia, Suicidal Ideation, Visual Hallucinations, Tactile Hallucinations, Other - Endocrine Endocrine: absent: As Per HPI, Change in Body Appearance, Change in Libido, Cold Intolorance, Deepening of Voice, Excessive Sweating, Fatigue, Flushing, Heat Intolorance, Increase in Ring/Shoe/Hat Size, Palpitations, Polydipsia, Polyphagia, Polyuria, Other - Hematologic/Lymphatic Hematologic: As Per HPI Past Patient History - Past Medical History & Family History Past Medical History?: Yes - Past Social History Smoking Status: Unknown If Ever Smoked - CARDIAC Hx Cardia Arrhythmia: Yes Hx Hypercholesterolemia: Yes Hx Hypertension: Yes - PULMONARY Hx Asthma: Yes - NEUROLOGICAL Hx Neurological Disorder: Yes HX Cerebrovascular Accident: Yes - HEENT Hx HEENT Problems: Yes Other/Comment: USES GLASSES FOR READING - RENAL Hx Chronic Kidney Disease: Yes - ENDOCRINE/METABOLIC Hx Endocrine Disorders: Yes Hx Diabetes Mellitus Type 1: Yes - HEMATOLOGICAL/ONCOLOGICAL Hx Blood Disorders: No - INTEGUMENTARY Hx Dermatological Problems: No - MUSCULOSKELETAL/RHEUMATOLOGICAL Hx Falls: Yes - GASTROINTESTINAL Hx Gastrointestinal Disorders: Yes Other/Comment: RECTAL POLYP - GENITOURINARY/GYNECOLOGICAL Hx Genitourinary Disorders: Yes Hx Incontinence: Yes - PSYCHIATRIC Hx Substance Use: No - SURGICAL HISTORY Hx Surgeries: Yes Other/Comment: BREAST REDUCTION 1990, TUMMY RUYCK 1990. colonoscopy; colorectal - ANESTHESIA Hx Anesthesia: Yes Hx Anesthesia Reactions: No Hx Malignant Hyperthermia: No Meds Allergies/Adverse Reactions: Allergies Allergy/AdvReac Type Severity Reaction Status Date / Time No Known Allergies Allergy Verified 10/13/18 16:16 - Medications Medications: Current Medications Albuterol/Ipratropium (Duoneb 3 Mg/0.5 Mg (3 Ml) Ud) 3 ml INH RQ6 [facility] Last Admin: 10/14/18 09:43 Dose: 3 ml Apixaban (Eliquis) 2.5 mg PO BID [facility] Last Admin: 10/14/18 09:52 Dose: 2.5 mg Aspirin (Ecotrin) 81 mg PO DAILY [facility] Last Admin: 10/14/18 09:52 Dose: 81 mg Budesonide (Pulmicort Respules) 0.5 mg INH RQ12 [facility] Last Admin: 10/14/18 09:43 Dose: 0.5 mg Carvedilol (Coreg) 25 mg PO BID [facility] Last Admin: 10/14/18 09:52 Dose: 25 mg Diltiazem HCl (Cardizem Cd) 180 mg PO DAILY [facility] Last Admin: 10/14/18 09:52 Dose: 180 mg Home Med (Patient's Own Medication) 1 tab PO DAILY [facility] Stop: 10/20/18 10:01 Last Admin: 10/14/18 09:52 Dose: 1 tab Ceftriaxone Sodium 1 gm/ (Sodium Chloride) 100 mls @ 100 mls/hr IVPB DAILY [facility]; Protocol Last Admin: 10/14/18 09:51 Dose: 100 mls/hr Azithromycin (Zithromax 500mg In Ns Addvantage) 500 mg in 250 mls @ 167 mls/hr IVPB Q24H [facility]; Protocol Insulin Human Regular (Novolin R) 0 unit SC ACHS [facility]; Protocol Last Admin: 10/14/18 09:11 Dose: Not Given Magnesium Hydroxide (Milk Of Magnesia) 30 ml PO PCL PRN PRN Reason: Constipation Megestrol Acetate (Megace) 400 mg PO DAILY [facility] Last Admin: 10/14/18 09:52 Dose: 400 mg Pneumococcal Polyvalent Vaccine (Pneumovax 23 Vaccine) 0.5 ml IM .ONCE ONE Stop: 10/15/18 10:01 Rosuvastatin Calcium (Crestor) 10 mg PO HS [facility] Last Admin: 10/13/18 21:49 Dose: 10 mg Sertraline HCl (Zoloft) 50 mg PO DAILY [facility] Last Admin: 10/14/18 09:53 Dose: 50 mg Sitagliptin Phosphate (Januvia) 50 mg PO DAILY [facility] Physical Exam - Constitutional Appears: No Acute Distress, Confused, Cachectic, Chronically Ill - Head Exam Head Exam: ATRAUMATIC, NORMAL INSPECTION, NORMOCEPHALIC - Eye Exam Eye Exam: EOMI, Normal appearance, PERRL Pupil Exam: NORMAL ACCOMODATION, PERRL - ENT Exam ENT Exam: Mucous Membranes Moist, Normal Exam - Neck Exam Neck exam: Positive for: Normal Inspection - Respiratory Exam Respiratory Exam: Decreased Breath Sounds, Prolonged Expiratory Phase, Rhonchi - Cardiovascular Exam Cardiovascular Exam: REGULAR RHYTHM, +S1, +S2 - GI/Abdominal Exam GI & Abdominal Exam: Diminished Bowel Sounds, Normal Bowel Sounds, Soft. absent: Tenderness - Rectal Exam Rectal Exam: Deferred - Extremities Exam Extremities exam: Positive for: normal inspection - Back Exam Back exam: NORMAL INSPECTION - Neurological Exam Neurological exam: Alert, CN II-XII Intact, Normal Gait, Oriented x3, Reflexes Normal - Psychiatric Exam Psychiatric exam: Depressed - Skin Skin Exam: Dry, Intact, Normal Color, Warm Results - Vital Signs Recent Vital Signs: Last Vital Signs Temp 97.4 F L 10/14/18 07:37 Pulse 114 H 10/14/18 07:37 Resp 20 10/14/18 07:37 BP 146/87 10/14/18 09:52 Pulse Ox 96 10/14/18 07:37 - Labs Result Diagrams: 10/14/18 07:19 10/14/18 07:19 Labs: Laboratory Results - last 24 hr 10/13/18 10/13/18 10/13/18 17:57 17:57 17:57 WBC 12.0 H D RBC 3.98 Hgb 10.8 L Hct 33.1 L MCV 83.2 D MCH 27.1 MCHC 32.5 L RDW 16.0 H Plt Count 567 H D MPV 6.7 L Neut % (Auto) 82.3 H Lymph % (Auto) 10.2 L [place] % (Auto) 7.0 Eos % (Auto) 0.3 Baso % (Auto) 0.2 Neut # (Auto) 9.9 H Lymph # (Auto) 1.2 [place] # (Auto) 0.8 Eos # (Auto) 0.0 Baso # (Auto) 0.0 PT 21.1 H INR 1.9 APTT 35.0 H Sodium 140 Potassium 4.1 Chloride 103 Carbon Dioxide 25 Anion Gap 17 BUN 30 H Creatinine 1.2 Est GFR ( Amer) 52 Est GFR (Non-Af Amer) 43 POC Glucose (mg/dL) Random Glucose 104 Calcium 9.9 Phosphorus Magnesium Total Bilirubin 0.3 AST 29 ALT 25 Alkaline Phosphatase 72 Total Protein 7.3 Albumin 3.7 Globulin 3.6 Albumin/Globulin Ratio 1.0 Stool Occult Blood 10/13/18 10/13/18 10/14/18 19:01 21:29 07:04 WBC RBC Hgb Hct MCV MCH MCHC RDW Plt Count MPV Neut % (Auto) Lymph % (Auto) [place] % (Auto) Eos % (Auto) Baso % (Auto) Neut # (Auto) Lymph # (Auto) [place] # (Auto) Eos # (Auto) Baso # (Auto) PT INR APTT Sodium Potassium Chloride Carbon Dioxide Anion Gap BUN Creatinine Est GFR ( Amer) Est GFR (Non-Af Amer) POC Glucose (mg/dL) 165 H 105 Random Glucose Calcium Phosphorus Magnesium Total Bilirubin AST ALT Alkaline Phosphatase Total Protein Albumin Globulin Albumin/Globulin Ratio Stool Occult Blood Positive H 10/14/18 10/14/18 10/14/18 07:19 07:19 07:19 WBC 10.0 RBC 3.80 Hgb 10.7 L Hct 31.5 L MCV 82.9 MCH 28.2 MCHC 34.1 RDW 15.7 H Plt Count 533 H MPV 6.8 L Neut % (Auto) 76.7 H Lymph % (Auto) 14.2 L [place] % (Auto) 8.4 Eos % (Auto) 0.2 Baso % (Auto) 0.5 Neut # (Auto) 7.7 H Lymph # (Auto) 1.4 [place] # (Auto) 0.8 Eos # (Auto) 0.0 Baso # (Auto) 0.1 PT 20.4 H INR 1.9 APTT 32.0 Sodium 140 Potassium 4.1 Chloride 106 Carbon Dioxide 25 Anion Gap 13 BUN 28 H Creatinine 1.1 Est GFR ( Amer) 57 Est GFR (Non-Af Amer) 47 POC Glucose (mg/dL) Random Glucose 103 Calcium 9.4 Phosphorus 3.4 Magnesium 2.0 Total Bilirubin 0.3 AST 38 H D ALT 25 Alkaline Phosphatase 60 Total Protein 6.5 Albumin 3.3 L Globulin 3.2 Albumin/Globulin Ratio 1.0 Stool Occult Blood Assessment & Plan (1) Cystocele Status: Acute (2) Diabetes mellitus Status: Acute (3) Diverticular disease of colon Status: Acute (4) Gout Status: Acute (5) Hemorrhoids Status: Acute (6) History of atrial fibrillation Status: Acute (7) History of colon polyps Status: Acute (8) Hyperlipidemia Status: Acute (9) CAP (community acquired pneumonia) Status: Acute - Assessment and Plan (Free Text) Assessment: cultures sent [facility]IOT[facility] SER[facility] SENT GI AND SURGERY ON BOARD HEMODYNAMICALLY STABLE
--- NOTE | 2018-10-14 11:19 | RAD ---
HISTORY: cough COMPARISON: Chest x-ray performed 07/04/18 TECHNIQUE: Chest PA and lateral, 2 views FINDINGS: Suboptimal lateral view due to patient's unelevated arm. LUNGS: Patchy right lower lobe opacity, possibly pneumonia. Mild left basilar atelectasis. Paratracheal opacity may reflect tortuous vasculature exaggerated by patient obliquity. Please note that chest x-ray has limited sensitivity for the detection of pulmonary masses. PLEURA: No significant pleural effusion identified. No definite pneumothorax . CARDIOVASCULAR: Cardiomegaly. Atherosclerotic calcifications of the aorta. OSSEOUS STRUCTURES: Degenerative changes. Osseous demineralization. VISUALIZED UPPER ABDOMEN: Elevation of the right hemidiaphragm. OTHER FINDINGS: None. IMPRESSION: Patchy right lower lobe opacity, possibly pneumonia. Mild left basilar atelectasis. Paratracheal opacity may reflect tortuous vasculature exaggerated by patient obliquity. Elevation of the right hemidiaphragm.
--- NOTE | 2018-10-14 11:43 | CP.PCM.CON ---
<Anca Funez - Last Filed: 10/14/18 11:47> History of Present Illness - History of Present Illness History of Present Illness: GI Fellow PGY5 Consult Note Patient is a 83yF with pmhx of Afib on AC, DM, HTN, HLD, rectal prolapse, colon polyps, constipation presenting with knee pain. Pt was found to be anemic but no rectal bleeding per pt's daughter but she suffers from constipation requiring l axative. GI was consulted for FOBT +. Rectal prolapse was diagnosed 09/2016. Colonoscopy 03/28/2017 showed diverticulusis and multiple tubular adenomas up to 3 cm in diameter. The prolapse was repaired 05/27/2017. Patient was readmitted for constipation and rectal bleeding 07/04/2018. A Thiersch procedure was performed 07/07/2018. ROS: A 12pt ROS was negative except as above PmHx: As stated in HPI PsHx: Rectal prolapse SHx: denies tobacco, etoh, drugs FHx: Denies colon cancer Past Patient History - Past Medical History & Family History Past Medical History?: Yes - Past Social History Smoking Status: Unknown If Ever Smoked - CARDIAC Hx Cardia Arrhythmia: Yes Hx Hypercholesterolemia: Yes Hx Hypertension: Yes - PULMONARY Hx Asthma: Yes - NEUROLOGICAL Hx Neurological Disorder: Yes HX Cerebrovascular Accident: Yes - HEENT Hx HEENT Problems: Yes Other/Comment: USES GLASSES FOR READING - RENAL Hx Chronic Kidney Disease: Yes - ENDOCRINE/METABOLIC Hx Endocrine Disorders: Yes Hx Diabetes Mellitus Type 1: Yes - HEMATOLOGICAL/ONCOLOGICAL Hx Blood Disorders: No - INTEGUMENTARY Hx Dermatological Problems: No - MUSCULOSKELETAL/RHEUMATOLOGICAL Hx Falls: Yes - GASTROINTESTINAL Hx Gastrointestinal Disorders: Yes Other/Comment: RECTAL POLYP - GENITOURINARY/GYNECOLOGICAL Hx Genitourinary Disorders: Yes Hx Incontinence: Yes - PSYCHIATRIC Hx Substance Use: No - SURGICAL HISTORY Hx Surgeries: Yes Other/Comment: BREAST REDUCTION 1990, MICAELA HERNADEZ 1990. colonoscopy; colorectal - ANESTHESIA Hx Anesthesia: Yes Hx Anesthesia Reactions: No Hx Malignant Hyperthermia: No Meds Allergies/Adverse Reactions: Allergies Allergy/AdvReac Type Severity Reaction Status Date / Time No Known Allergies Allergy Verified 10/13/18 16:16 - Medications Medications: Current Medications Albuterol/Ipratropium (Duoneb 3 Mg/0.5 Mg (3 Ml) Ud) 3 ml INH RQ6 [facility] Last Admin: 10/14/18 09:43 Dose: 3 ml Apixaban (Eliquis) 2.5 mg PO BID [facility] [place] Last Admin: 10/14/18 09:52 Dose: 2.5 mg Aspirin (Ecotrin) 81 mg PO DAILY [facility] [place] Last Admin: 10/14/18 09:52 Dose: 81 mg Budesonide (Pulmicort Respules) 0.5 mg INH RQ12 [facility] Last Admin: 10/14/18 09:43 Dose: 0.5 mg Carvedilol (Coreg) 25 mg PO BID [facility] [place] Last Admin: 10/14/18 09:52 Dose: 25 mg Diltiazem HCl (Cardizem Cd) 180 mg PO DAILY [facility] [place] Last Admin: 10/14/18 09:52 Dose: 180 mg Home Med (Patient's Own Medication) 1 tab PO DAILY [facility] [place] Stop: 10/20/18 10:01 Last Admin: 10/14/18 09:52 Dose: 1 tab Ceftriaxone Sodium 1 gm/ (Sodium Chloride) 100 mls @ 100 mls/hr IVPB DAILY [facility] [place]; Protocol Last Admin: 10/14/18 09:51 Dose: 100 mls/hr Azithromycin (Zithromax 500mg In Ns Addvantage) 500 mg in 250 mls @ 167 mls/hr IVPB Q24H [facility]; Protocol Insulin Human Regular (Novolin R) 0 unit SC ACHS [facility] [place]; Protocol Last Admin: 10/14/18 11:39 Dose: Not Given Magnesium Hydroxide (Milk Of Magnesia) 30 ml PO PCL PRN PRN Reason: Constipation Megestrol Acetate (Megace) 400 mg PO DAILY [facility] [place] Last Admin: 10/14/18 09:52 Dose: 400 mg Pneumococcal Polyvalent Vaccine (Pneumovax 23 Vaccine) 0.5 ml IM .ONCE ONE Stop: 10/15/18 10:01 Rosuvastatin Calcium (Crestor) 10 mg PO [facility] Last Admin: 10/13/18 21:49 Dose: 10 mg Sertraline HCl (Zoloft) 50 mg PO DAILY [facility] [place] Last Admin: 10/14/18 09:53 Dose: 50 mg Sitagliptin Phosphate (Januvia) 50 mg PO DAILY [facility] Physical Exam - Constitutional Appears: Non-toxic, No Acute Distress - Head Exam Head Exam: ATRAUMATIC, NORMAL INSPECTION, NORMOCEPHALIC - Eye Exam Eye Exam: EOMI, Normal appearance, PERRL Pupil Exam: PERRL - ENT Exam ENT Exam: Mucous Membranes Moist, Normal Exam - Neck Exam Neck exam: Positive for: Full Rom, Normal Inspection - Respiratory Exam Respiratory Exam: Clear to Auscultation Bilateral, NORMAL BREATHING PATTERN - Cardiovascular Exam Cardiovascular Exam: Irregular Rhythm, +S1, +S2 - GI/Abdominal Exam GI & Abdominal Exam: Normal Bowel Sounds, Soft. absent: Distended, Firm, Organomegaly, Tenderness - Rectal Exam Rectal Exam: Deferred - Extremities Exam Extremities exam: Positive for: full ROM, normal inspection - Neurological Exam Neurological exam: Alert, Oriented x3 - Psychiatric Exam Psychiatric exam: Flat Affect - Skin Skin Exam: Dry, Intact, Normal Color, Warm Results - Vital Signs Recent Vital Signs: Last Vital Signs Temp 97.4 F L 10/14/18 07:37 Pulse 114 H 10/14/18 07:37 Resp 20 10/14/18 07:37 BP 146/87 10/14/18 09:52 Pulse Ox 96 10/14/18 07:37 - Labs Result Diagrams: 10/14/18 07:19 10/14/18 07:19 Labs: Laboratory Results - last 24 hr 10/13/18 10/13/18 10/13/18 17:57 17:57 17:57 WBC 12.0 H D RBC 3.98 Hgb 10.8 L Hct 33.1 L MCV 83.2 D MCH 27.1 MCHC 32.5 L RDW 16.0 H Plt Count 567 H D MPV 6.7 L Neut % (Auto) 82.3 H Lymph % (Auto) 10.2 L Mcduffie % (Auto) 7.0 Eos % (Auto) 0.3 Baso % (Auto) 0.2 Neut # (Auto) 9.9 H Lymph # (Auto) 1.2 Mcduffie # (Auto) 0.8 Eos # (Auto) 0.0 Baso # (Auto) 0.0 PT 21.1 H INR 1.9 APTT 35.0 H Sodium 140 Potassium 4.1 Chloride 103 Carbon Dioxide 25 Anion Gap 17 BUN 30 H Creatinine 1.2 Est GFR ( Amer) 52 Est GFR (Non-Af Amer) 43 POC Glucose (mg/dL) Random Glucose 104 Calcium 9.9 Phosphorus Magnesium Total Bilirubin 0.3 AST 29 ALT 25 Alkaline Phosphatase 72 Total Protein 7.3 Albumin 3.7 Globulin 3.6 Albumin/Globulin Ratio 1.0 Stool Occult Blood 10/13/18 10/13/18 10/14/18 19:01 21:29 07:04 WBC RBC Hgb Hct MCV MCH MCHC RDW Plt Count MPV Neut % (Auto) Lymph % (Auto) Mcduffie % (Auto) Eos % (Auto) Baso % (Auto) Neut # (Auto) Lymph # (Auto) Mcduffie # (Auto) Eos # (Auto) Baso # (Auto) PT INR APTT Sodium Potassium Chloride Carbon Dioxide Anion Gap BUN Creatinine Est GFR ( Amer) Est GFR (Non-Af Amer) POC Glucose (mg/dL) 165 H 105 Random Glucose Calcium Phosphorus Magnesium Total Bilirubin AST ALT Alkaline Phosphatase Total Protein Albumin Globulin Albumin/Globulin Ratio Stool Occult Blood Positive H 10/14/18 10/14/18 10/14/18 07:19 07:19 07:19 WBC 10.0 RBC 3.80 Hgb 10.7 L Hct 31.5 L MCV 82.9 MCH 28.2 MCHC 34.1 RDW 15.7 H Plt Count 533 H MPV 6.8 L Neut % (Auto) 76.7 H Lymph % (Auto) 14.2 L Mcduffie % (Auto) 8.4 Eos % (Auto) 0.2 Baso % (Auto) 0.5 Neut # (Auto) 7.7 H Lymph # (Auto) 1.4 Mcduffie # (Auto) 0.8 Eos # (Auto) 0.0 Baso # (Auto) 0.1 PT 20.4 H INR 1.9 APTT 32.0 Sodium 140 Potassium 4.1 Chloride 106 Carbon Dioxide 25 Anion Gap 13 BUN 28 H Creatinine 1.1 Est GFR ( Amer) 57 Est GFR (Non-Af Amer) 47 POC Glucose (mg/dL) Random Glucose 103 Calcium 9.4 Phosphorus 3.4 Magnesium 2.0 Total Bilirubin 0.3 AST 38 H D ALT 25 Alkaline Phosphatase 60 Total Protein 6.5 Albumin 3.3 L Globulin 3.2 Albumin/Globulin Ratio 1.0 Stool Occult Blood 10/14/18 11:16 WBC RBC Hgb Hct MCV MCH MCHC RDW Plt Count MPV Neut % (Auto) Lymph % (Auto) Mcduffie % (Auto) Eos % (Auto) Baso % (Auto) Neut # (Auto) Lymph # (Auto) Mcduffie # (Auto) Eos # (Auto) Baso # (Auto) PT INR APTT Sodium Potassium Chloride Carbon Dioxide Anion Gap BUN Creatinine Est GFR ( Amer) Est GFR (Non-Af Amer) POC Glucose (mg/dL) 157 H Random Glucose Calcium Phosphorus Magnesium Total Bilirubin AST ALT Alkaline Phosphatase Total Protein Albumin Globulin Albumin/Globulin Ratio Stool Occult Blood Assessment & Plan - Assessment and Plan (Free Text) Assessment: 1. FOBT+ 2. Anemia 3. hx of rectal prolaspe 4. constipation 5. Colon polyps -Pt with no overt GI bleeding at this time -H/H stable, vitals stable -Pt with hx of large polyps and pt's daughter needs to followup with primary GI doctor for possible repeat colonoscopy -Pt's family hesitant for any procedures due to advanced age and risks vs benefit -FOBT can be from colon polyps and recurrent rectal prolapse in setting of OAC -Pt with severe constipation, recommend miralax daily -No plan for endoscopic evaluation at this time -Will continue to follow pt closely <Gael Banuelos - Last Filed: 10/14/18 16:35> Meds - Medications Medications: Current Medications Albuterol/Ipratropium (Duoneb 3 Mg/0.5 Mg (3 Ml) Ud) 3 ml INH RQ6 [facility] Last Admin: 10/14/18 09:43 Dose: 3 ml Apixaban (Eliquis) 2.5 mg PO BID [facility] Last Admin: 10/14/18 09:52 Dose: 2.5 mg Aspirin (Ecotrin) 81 mg PO DAILY [facility] [place] Last Admin: 10/14/18 09:52 Dose: 81 mg Budesonide (Pulmicort Respules) 0.5 mg INH RQ12 [facility] [place] Last Admin: 10/14/18 09:43 Dose: 0.5 mg Carvedilol (Coreg) 25 mg PO BID [facility] [place] Last Admin: 10/14/18 09:52 Dose: 25 mg Diltiazem HCl (Cardizem Cd) 180 mg PO DAILY [facility] [place] Last Admin: 10/14/18 09:52 Dose: 180 mg Docusate Sodium (Colace) 100 mg PO BID [facility] [place] Last Admin: 10/14/18 12:41 Dose: 100 mg Home Med (Patient's Own Medication) 1 tab PO DAILY [facility] [place] Stop: 10/20/18 10:01 Last Admin: 05/07/19 09:52 Dose: 1 tab Ceftriaxone Sodium 1 gm/ (Sodium Chloride) 100 mls @ 100 mls/hr IVPB DAILY [facility] [place]; Protocol Last Admin: 10/14/18 09:51 Dose: 100 mls/hr Azithromycin (Zithromax 500mg In Ns Addvantage) 500 mg in 250 mls @ 167 mls/hr IVPB Q24H [facility] [place]; Protocol Last Admin: 10/14/18 11:45 Dose: 167 mls/hr Insulin Human Regular (Novolin R) 0 unit SC ACHS [facility] [place]; Protocol Last Admin: 10/14/18 11:39 Dose: Not Given Magnesium Hydroxide (Milk Of Magnesia) 30 ml PO PCL PRN PRN Reason: Constipation Megestrol Acetate (Megace) 400 mg PO DAILY [facility] [place] Last Admin: 10/14/18 09:52 Dose: 400 mg Pneumococcal Polyvalent Vaccine (Pneumovax 23 Vaccine) 0.5 ml IM .ONCE ONE Stop: 10/15/18 10:01 Polyethylene Glycol (Miralax) 17 gm PO DAILY [facility] [place] Last Admin: 10/14/18 12:41 Dose: 17 gm Rosuvastatin Calcium (Crestor) 10 mg PO [facility] Last Admin: 10/13/18 21:49 Dose: 10 mg Sennosides (Senokot Tab) 8.6 mg PO BID [facility] [place] Last Admin: 10/14/18 12:41 Dose: 8.6 mg Sertraline HCl (Zoloft) 50 mg PO DAILY [facility] [place] Last Admin: 10/14/18 09:53 Dose: 50 mg Sitagliptin Phosphate (Januvia) 50 mg PO DAILY [facility] Results - Vital Signs Recent Vital Signs: Last Vital Signs Temp 98.3 F 10/14/18 16:00 Pulse 84 10/14/18 16:00 Resp 20 10/14/18 16:00 BP 113/67 10/14/18 16:00 Pulse Ox 95 10/14/18 16:00 - Labs Result Diagrams: 10/14/18 07:19 10/14/18 07:19 Labs: Laboratory Results - last 24 hr 10/13/18 10/13/18 10/13/18 17:57 17:57 17:57 WBC 12.0 H D RBC 3.98 Hgb 10.8 L Hct 33.1 L MCV 83.2 D MCH 27.1 MCHC 32.5 L RDW 16.0 H Plt Count 567 H D MPV 6.7 L Neut % (Auto) 82.3 H Lymph % (Auto) 10.2 L Mcduffie % (Auto) 7.0 Eos % (Auto) 0.3 Baso % (Auto) 0.2 Neut # (Auto) 9.9 H Lymph # (Auto) 1.2 Mcduffie # (Auto) 0.8 Eos # (Auto) 0.0 Baso # (Auto) 0.0 PT 21.1 H INR 1.9 APTT 35.0 H Sodium 140 Potassium 4.1 Chloride 103 Carbon Dioxide 25 Anion Gap 17 BUN 30 H Creatinine 1.2 Est GFR ( Amer) 52 Est GFR (Non-Af Amer) 43 POC Glucose (mg/dL) Random Glucose 104 Hemoglobin A1c Calcium 9.9 Phosphorus Magnesium Iron TIBC % Saturation Total Bilirubin 0.3 AST 29 ALT 25 Alkaline Phosphatase 72 Total Protein 7.3 Albumin 3.7 Globulin 3.6 Albumin/Globulin Ratio 1.0 Triglycerides Cholesterol LDL Cholesterol Direct HDL Cholesterol Vitamin B12 Stool Occult Blood C. difficile Ag & Toxin 10/13/18 10/13/18 10/14/18 19:01 21:29 07:04 WBC RBC Hgb Hct MCV MCH MCHC RDW Plt Count MPV Neut % (Auto) Lymph % (Auto) Mcduffie % (Auto) Eos % (Auto) Baso % (Auto) Neut # (Auto) Lymph # (Auto) Mcduffie # (Auto) Eos # (Auto) Baso # (Auto) PT INR APTT Sodium Potassium Chloride Carbon Dioxide Anion Gap BUN Creatinine Est GFR ( Amer) Est GFR (Non-Af Amer) POC Glucose (mg/dL) 165 H 105 Random Glucose Hemoglobin A1c Calcium Phosphorus Magnesium Iron TIBC % Saturation Total Bilirubin AST ALT Alkaline Phosphatase Total Protein Albumin Globulin Albumin/Globulin Ratio Triglycerides Cholesterol LDL Cholesterol Direct HDL Cholesterol Vitamin B12 Stool Occult Blood Positive H C. difficile Ag & Toxin 10/14/18 10/14/18 10/14/18 07:19 07:19 07:19 WBC 10.0 RBC 3.80 Hgb 10.7 L Hct 31.5 L MCV 82.9 MCH 28.2 MCHC 34.1 RDW 15.7 H Plt Count 533 H MPV 6.8 L Neut % (Auto) 76.7 H Lymph % (Auto) 14.2 L Mcduffie % (Auto) 8.4 Eos % (Auto) 0.2 Baso % (Auto) 0.5 Neut # (Auto) 7.7 H Lymph # (Auto) 1.4 Mcduffie # (Auto) 0.8 Eos # (Auto) 0.0 Baso # (Auto) 0.1 PT 20.4 H INR 1.9 APTT 32.0 Sodium 140 Potassium 4.1 Chloride 106 Carbon Dioxide 25 Anion Gap 13 BUN 28 H Creatinine 1.1 Est GFR ( Amer) 57 Est GFR (Non-Af Amer) 47 POC Glucose (mg/dL) Random Glucose 103 Hemoglobin A1c Calcium 9.4 Phosphorus 3.4 Magnesium 2.0 Iron TIBC % Saturation Total Bilirubin 0.3 AST 38 H D ALT 25 Alkaline Phosphatase 60 Total Protein 6.5 Albumin 3.3 L Globulin 3.2 Albumin/Globulin Ratio 1.0 Triglycerides Cholesterol LDL Cholesterol Direct HDL Cholesterol Vitamin B12 Stool Occult Blood C. difficile Ag & Toxin 10/14/18 10/14/18 10/14/18 11:11 11:16 13:54 WBC RBC Hgb Hct MCV MCH MCHC RDW Plt Count MPV Neut % (Auto) Lymph % (Auto) Mcduffie % (Auto) Eos % (Auto) Baso % (Auto) Neut # (Auto) Lymph # (Auto) Mcduffie # (Auto) Eos # (Auto) Baso # (Auto) PT INR APTT Sodium Potassium Chloride Carbon Dioxide Anion Gap BUN Creatinine Est GFR ( Amer) Est GFR (Non-Af Amer) POC Glucose (mg/dL) 157 H Random Glucose Hemoglobin A1c Calcium Phosphorus Magnesium Iron TIBC % Saturation Total Bilirubin AST ALT Alkaline Phosphatase Total Protein Albumin Globulin Albumin/Globulin Ratio Triglycerides 91 D Cholesterol 77 LDL Cholesterol Direct 37 HDL Cholesterol 35 Vitamin B12 876 Stool Occult Blood C. difficile Ag & Toxin Negative 10/14/18 10/14/18 13:54 13:54 WBC RBC Hgb Hct MCV MCH MCHC RDW Plt Count MPV Neut % (Auto) Lymph % (Auto) Mcduffie % (Auto) Eos % (Auto) Baso % (Auto) Neut # (Auto) Lymph # (Auto) Mcduffie # (Auto) Eos # (Auto) Baso # (Auto) PT INR APTT Sodium Potassium Chloride Carbon Dioxide Anion Gap BUN Creatinine Est GFR ( Amer) Est GFR (Non-Af Amer) POC Glucose (mg/dL) Random Glucose Hemoglobin A1c 6.5 Calcium Phosphorus Magnesium Iron 24 L TIBC 298 % Saturation 8 L Total Bilirubin AST ALT Alkaline Phosphatase Total Protein Albumin Globulin Albumin/Globulin Ratio Triglycerides Cholesterol LDL Cholesterol Direct HDL Cholesterol Vitamin B12 Stool Occult Blood C. difficile Ag & Toxin Attending/Attestation - Attestation I have personally seen and examined this patient.: Yes I have fully participated in the care of the patient.: Yes I have reviewed all pertinent clinical information: Yes Notes (Text): 10/14/18 16:28 I have seen and examined patient with GI fellow. Agree with above documentation with the following additions. In brief, this is an 83 year old female with history of DM, HTN, atrial fibrillation on eliquis, constipation who presents to hospital with progressive cough, knee pain, and fatigue. GI called for evaluation of anemia and stool occult blood positive testing. She reports chronic constipation requiring laxative therapy but denies abdominal pain, nausea, vomiting, fever/chills, or visible blood in stool. She does report recent weight loss but cannot quantify amount. She had a colonoscopy with Dr. Valente in 2017 which showed multiple adenomatous polyps and a larger polyp which patient was apparently referred to tertiary care center for further resection and management, though patient did not follow through on this. DM/HTN Atrial fibrillation on eliquis Constipation Cough, pneumonia Anemia, stool occult blood positive - Diet as tolerated - Continue with antibiotic therapy as per ID - H/H stable, continue to monitor - Will need to clarify prior endoscopic procedures and plan regarding referral to advanced GI for complex polypectomy - Obtain CT imaging abdomen/pelvis given anemia and weight loss - Will continue to monitor patient clinical course
[2018-10-14] MEDS: Azithromycin 500mg/250ML NS 500 MG/250 ML BAG IVPB SCH (11:45)
--- NOTE | 2018-10-14 11:47 | CP.PCM.CON ---
History of Present Illness - History of Present Illness History of Present Illness: General Surgery Consult for Dr. Veloz Reason for consult: rectal prolapse 83 F with past medical history of chronic constipation, a-fib and on eliquis, CVA, HTN who was admitted for GI bleed and pneumonia. general surgery was consu lted for rectal prolapse. Patient has chronic constipation and does not take medication regularly to prevent hard stools. Patient frequnetly has issues with straining and rectum prolapses. Patient had repair earleir this year with Dr. Veloz. Patient's does not have prolapse currently. She is complaining of cough. Denies fever/chills, cp, SOB, abd pain, n/v/d, urinary symptoms. PMD: Erickson Muñoz PMH: Asthma, afib on eliquis, Depression, CVA, HTN, Hypercholesterolemia, Chronic Kidney Disease, Rheumatoid Arthritis, Chronic constipation PSH: Rectal prolapse repair ALL: NKDA Review of Systems - Review of Systems All systems: reviewed and no additional remarkable complaints except (as per HPI) Past Patient History - Past Medical History & Family History Past Medical History?: Yes - Past Social History Smoking Status: Unknown If Ever Smoked - CARDIAC Hx Cardia Arrhythmia: Yes Hx Hypercholesterolemia: Yes Hx Hypertension: Yes - PULMONARY Hx Asthma: Yes - NEUROLOGICAL Hx Neurological Disorder: Yes HX Cerebrovascular Accident: Yes - HEENT Hx HEENT Problems: Yes Other/Comment: USES GLASSES FOR READING - RENAL Hx Chronic Kidney Disease: Yes - ENDOCRINE/METABOLIC Hx Endocrine Disorders: Yes Hx Diabetes Mellitus Type 1: Yes - HEMATOLOGICAL/ONCOLOGICAL Hx Blood Disorders: No - INTEGUMENTARY Hx Dermatological Problems: No - MUSCULOSKELETAL/RHEUMATOLOGICAL Hx Falls: Yes - GASTROINTESTINAL Hx Gastrointestinal Disorders: Yes Other/Comment: RECTAL POLYP - GENITOURINARY/GYNECOLOGICAL Hx Genitourinary Disorders: Yes Hx Incontinence: Yes - PSYCHIATRIC Hx Substance Use: No - SURGICAL HISTORY Hx Surgeries: Yes Other/Comment: BREAST REDUCTION 1990, TUMMY SATYA 1990. colonoscopy; colorectal - ANESTHESIA Hx Anesthesia: Yes Hx Anesthesia Reactions: No Hx Malignant Hyperthermia: No Meds Allergies/Adverse Reactions: Allergies Allergy/AdvReac Type Severity Reaction Status Date / Time No Known Allergies Allergy Verified 10/13/18 16:16 - Medications Medications: Current Medications Albuterol/Ipratropium (Duoneb 3 Mg/0.5 Mg (3 Ml) Ud) 3 ml INH RQ6 [facility] Last Admin: 10/14/18 09:43 Dose: 3 ml Apixaban (Eliquis) 2.5 mg PO BID [facility] Last Admin: 10/14/18 09:52 Dose: 2.5 mg Aspirin (Ecotrin) 81 mg PO DAILY [facility] Last Admin: 10/14/18 09:52 Dose: 81 mg Budesonide (Pulmicort Respules) 0.5 mg INH RQ12 [facility] Last Admin: 10/14/18 09:43 Dose: 0.5 mg Carvedilol (Coreg) 25 mg PO BID [facility] Last Admin: 10/14/18 09:52 Dose: 25 mg Diltiazem HCl (Cardizem Cd) 180 mg PO DAILY [facility] Last Admin: 10/14/18 09:52 Dose: 180 mg Docusate Sodium (Colace) 100 mg PO BID [facility] Home Med (Patient's Own Medication) 1 tab PO DAILY [facility] Stop: 10/20/18 10:01 Last Admin: 10/14/18 09:52 Dose: 1 tab Ceftriaxone Sodium 1 gm/ (Sodium Chloride) 100 mls @ 100 mls/hr IVPB DAILY [facility]; Protocol Last Admin: 10/14/18 09:51 Dose: 100 mls/hr Azithromycin (Zithromax 500mg In Ns Addvantage) 500 mg in 250 mls @ 167 mls/hr IVPB Q24H [facility]; Protocol Insulin Human Regular (Novolin R) 0 unit SC ACHS [facility]; Protocol Last Admin: 10/14/18 11:39 Dose: Not Given Magnesium Hydroxide (Milk Of Magnesia) 30 ml PO PCL PRN PRN Reason: Constipation Megestrol Acetate (Megace) 400 mg PO DAILY [facility] Last Admin: 10/14/18 09:52 Dose: 400 mg Pneumococcal Polyvalent Vaccine (Pneumovax 23 Vaccine) 0.5 ml IM .ONCE ONE Stop: 10/15/18 10:01 Polyethylene Glycol (Miralax) 17 gm PO DAILY [facility] Rosuvastatin Calcium (Crestor) 10 mg PO HS [facility] Last Admin: 10/13/18 21:49 Dose: 10 mg Sennosides (Senokot Tab) 8.6 mg PO BID [facility] Sertraline HCl (Zoloft) 50 mg PO DAILY [facility] Last Admin: 10/14/18 09:53 Dose: 50 mg Sitagliptin Phosphate (Januvia) 50 mg PO DAILY [facility] Physical Exam - Constitutional Appears: No Acute Distress - Head Exam Head Exam: ATRAUMATIC, NORMOCEPHALIC - Eye Exam Eye Exam: EOMI, Normal appearance Pupil Exam: PERRL - ENT Exam ENT Exam: Mucous Membranes Moist - Respiratory Exam Respiratory Exam: NORMAL BREATHING PATTERN - Cardiovascular Exam Cardiovascular Exam: REGULAR RHYTHM - Rectal Exam Rectal Exam: NORMAL INSPECTION. absent: Hemorrhoids, Fecal Impaction Additional comments: normal tone, no prolapse, no evidence of masses/hemorrhoids/impacted stool, no blood noted - Extremities Exam Extremities exam: Positive for: normal capillary refill. Negative for: calf tenderness - Back Exam Back exam: absent: CVA tenderness (L), CVA tenderness (R) - Neurological Exam Neurological exam: Alert - Psychiatric Exam Psychiatric exam: Normal Affect, Normal Mood - Skin Skin Exam: Dry, Intact, Warm Results - Vital Signs Recent Vital Signs: Last Vital Signs Temp 97.4 F L 10/14/18 07:37 Pulse 114 H 10/14/18 07:37 Resp 20 10/14/18 07:37 BP 146/87 10/14/18 09:52 Pulse Ox 96 10/14/18 07:37 - Labs Result Diagrams: 10/14/18 07:19 10/14/18 07:19 Labs: Laboratory Results - last 24 hr 10/13/18 10/13/18 10/13/18 17:57 17:57 17:57 WBC 12.0 H D RBC 3.98 Hgb 10.8 L Hct 33.1 L MCV 83.2 D MCH 27.1 MCHC 32.5 L RDW 16.0 H Plt Count 567 H D MPV 6.7 L Neut % (Auto) 82.3 H Lymph % (Auto) 10.2 L [place] % (Auto) 7.0 Eos % (Auto) 0.3 Baso % (Auto) 0.2 Neut # (Auto) 9.9 H Lymph # (Auto) 1.2 [place] # (Auto) 0.8 Eos # (Auto) 0.0 Baso # (Auto) 0.0 PT 21.1 H INR 1.9 APTT 35.0 H Sodium 140 Potassium 4.1 Chloride 103 Carbon Dioxide 25 Anion Gap 17 BUN 30 H Creatinine 1.2 Est GFR ( Amer) 52 Est GFR (Non-Af Amer) 43 POC Glucose (mg/dL) Random Glucose 104 Calcium 9.9 Phosphorus Magnesium Total Bilirubin 0.3 AST 29 ALT 25 Alkaline Phosphatase 72 Total Protein 7.3 Albumin 3.7 Globulin 3.6 Albumin/Globulin Ratio 1.0 Stool Occult Blood 10/13/18 10/13/18 10/14/18 19:01 21:29 07:04 WBC RBC Hgb Hct MCV MCH MCHC RDW Plt Count MPV Neut % (Auto) Lymph % (Auto) [place] % (Auto) Eos % (Auto) Baso % (Auto) Neut # (Auto) Lymph # (Auto) [place] # (Auto) Eos # (Auto) Baso # (Auto) PT INR APTT Sodium Potassium Chloride Carbon Dioxide Anion Gap BUN Creatinine Est GFR ( Amer) Est GFR (Non-Af Amer) POC Glucose (mg/dL) 165 H 105 Random Glucose Calcium Phosphorus Magnesium Total Bilirubin AST ALT Alkaline Phosphatase Total Protein Albumin Globulin Albumin/Globulin Ratio Stool Occult Blood Positive H 10/14/18 10/14/18 10/14/18 07:19 07:19 07:19 WBC 10.0 RBC 3.80 Hgb 10.7 L Hct 31.5 L MCV 82.9 MCH 28.2 MCHC 34.1 RDW 15.7 H Plt Count 533 H MPV 6.8 L Neut % (Auto) 76.7 H Lymph % (Auto) 14.2 L [place] % (Auto) 8.4 Eos % (Auto) 0.2 Baso % (Auto) 0.5 Neut # (Auto) 7.7 H Lymph # (Auto) 1.4 [place] # (Auto) 0.8 Eos # (Auto) 0.0 Baso # (Auto) 0.1 PT 20.4 H INR 1.9 APTT 32.0 Sodium 140 Potassium 4.1 Chloride 106 Carbon Dioxide 25 Anion Gap 13 BUN 28 H Creatinine 1.1 Est GFR ( Amer) 57 Est GFR (Non-Af Amer) 47 POC Glucose (mg/dL) Random Glucose 103 Calcium 9.4 Phosphorus 3.4 Magnesium 2.0 Total Bilirubin 0.3 AST 38 H D ALT 25 Alkaline Phosphatase 60 Total Protein 6.5 Albumin 3.3 L Globulin 3.2 Albumin/Globulin Ratio 1.0 Stool Occult Blood 10/14/18 11:16 WBC RBC Hgb Hct MCV MCH MCHC RDW Plt Count MPV Neut % (Auto) Lymph % (Auto) [place] % (Auto) Eos % (Auto) Baso % (Auto) Neut # (Auto) Lymph # (Auto) [place] # (Auto) Eos # (Auto) Baso # (Auto) PT INR APTT Sodium Potassium Chloride Carbon Dioxide Anion Gap BUN Creatinine Est GFR ( Amer) Est GFR (Non-Af Amer) POC Glucose (mg/dL) 157 H Random Glucose Calcium Phosphorus Magnesium Total Bilirubin AST ALT Alkaline Phosphatase Total Protein Albumin Globulin Albumin/Globulin Ratio Stool Occult Blood Assessment & Plan - Assessment and Plan (Free Text) Assessment: 83 F with omh of rectal prolapse and chronic constipation who was admitted for pneumonia and GI bleed Plan: -Diet as tolerated -Senna, Colace, Miralax -f/u GI recommendations -Medical management as per primary -Discussed with Dr. Magdiel Lowe pGY2 - Date & Time Date: 10/14/18 Time: 12:00
[2018-10-14] MEDS: POLYETHYLENE GLYCOL 3350 17 GM/Dose PACKET PO SCH (12:41)
[2018-10-14 14:41] LABS: IRON 24 ug/dL (37-170)
[2018-10-14 14:51] LABS: % IRON SATURATION 8 (20-55); TOTAL IRON BINDING CAPACITY 298 ug/dL (250-450)
[2018-10-14] MEDS ORDERED: Iohexol 240 (50 ml) PO ONE (17:15)
[2018-10-14 17:35] LABS: FOLATE 9.6 ng/mL
[2018-10-15] MEDS: Albuterol-Ipratrop 3 mg / 0.5 (3 ml) UD INH SCH ×4 (01:20→21:13)
--- NOTE | 2018-10-15 03:18 | HP ---
The patient was seen and examined on the bedside on 10/14/2018. CHIEF COMPLAINT: Fall, constipation, and rectal bleeding. HISTORY OF PRESENT ILLNESS: Mrs. Jennifer Barraza is an 83-year-old female with history of stroke and atrial fibrillation, on Eliquis, came to the emergency department complaining about left knee pain from a fall two weeks ago, rectal bleeding, and constipation. The patient states that the pain is better, but is persistent. She never has previously scanned. The patient is complaining about her falls. No fever, no chills. No headache, no dizziness. No chest pain, no palpitation. When I saw the patient, her daughter was sitting on the bedside, also she helped me to get the story. The patient is a very poor historian. PAST MEDICAL HISTORY: Asthma, cardiac arrhythmia, depression, hypertension, hypercholesterolemia, chronic kidney disease, rheumatoid arthritis, history of bladder prolapse, and history of rectal prolapse. FAMILY HISTORY: Father and mother noncontributory. HABITS: No smoking. No drugs. No ethanol. ALLERGIES: THE PATIENT IS NOT ALLERGIC WITH ANY MEDICATIONS. MEDICATIONS: Home medications are reviewed by me. REVIEW OF SYSTEMS: The patient was seen and examined at the bedside, sitting comfortably. Daughter is sitting on the bedside. Has constipation, rectal bleeding, and history of rectal prolapse. The patient had multiple admissions for constipation, rectal prolapse, and vaginal prolapse. She has appointment with Dr. Padron. No fever, no chills. No headache, no dizziness. PHYSICAL EXAMINATION: VITAL SIGNS: Temperature 97.4, pulse 114, respiratory rate 20, blood pressure 140/87, and pulse oximetry of 96. HEENT: Head: Normocephalic, atraumatic. Eyes: PERRLA. Extraocular muscles intact. Conjunctivae clear. Nose patent. Mucous membranes moist. NECK: Supple. No carotid bruits. No JVD or thyromegaly. CHEST: Bilaterally symmetrical. HEART: S1 and S2 positive. LUNGS: Clear to auscultation. ABDOMEN: Soft. Bowel sounds present. No organomegaly. EXTREMITIES: No edema, no cyanosis. NEUROLOGIC: The patient is awake and alert. Moving all four extremities. No focal deficit. LABORATORY DATA: White blood cell count is 10, hemoglobin 10.7, hematocrit 31.5, and platelets 533. Sodium 140, potassium 4.1, creatinine 1.1, and glucose 103. ASSESSMENT AND PLAN: Mrs. Jennifer Barraza is an 83-year-old lady with anemia, thrombocytosis, has history of constipation, rectal bleeding, and rectal prolapse. Colonoscopy was done on 03/28/2017, which showed diverticulosis and multiple tubular adenoma up to 3 cm in diameter. The prolapse was repaired on 05/27/2017. The patient was readmitted for constipation after admitting on 07/04/2018. A Thiersch procedure was performed on 07/07/2018. The patient was seen by Infectious Disease doctor, Dr. Nunez. There is history of asthma, rheumatoid arthritis, history of atrial fibrillation, on Eliquis, depression, cerebrovascular accident, hypertension, hypercholesterolemia, and chronic kidney disease. We admitted the patient. Surgical consult called. Actually, she has appointment with Dr. Padron, but never went to his office. Restarted home medications. We will repeat labs. Consult with Dr. Gael Banuelos, Dr. Nunez, and Dr. Padron. Started with diltiazem, Colace, Coreg, Crestor, aspirin, Eliquis, and put on sliding scale. We will follow up. Rehana Mcarthur MD MTDD
[2018-10-15] MEDS: Budesonide 0.5 mg/2 ml Inhal Susp UD INH SCH ×2 (07:42→21:13)
[2018-10-15] MEDS: (Novolin R) Insulin Human Regular 100 units/ml vial SC SCH ×4 (08:30→21:39)
[2018-10-15 08:51] LABS: BASO # 0.1 K/uL (0.0-0.2); BASO % 0.5 % (0.0-2.0); EOS % 0.3 % (0.0-4.0); HEMOGLOBIN 10.4 g/dL (11.0-16.0); LYMPH # 1.6 K/uL (1.0-4.3); LYMPH % 15.3 % (20.0-40.0); MEAN CELL VOLUME 82.8 fL (81.0-99.0); MEAN CORPUSCULAR HEMOGLOBIN 27.1 pg (27.0-31.0); MEAN CORPUSCULAR HGB CONC 32.7 g/dL (33.0-37.0); MEAN PLATELET VOLUME 6.9 fL (7.2-11.7); MONO # 0.8 K/uL (0.0-0.8); MONO % 7.5 % (0.0-10.0); NEUT # 8.2 K/uL (1.8-7.0); NEUT % 76.4 % (50.0-75.0); NRBC % 0.1 % (0.0-2.0); RBC 3.85 Mil/uL (3.80-5.20); RED CELL DISTRIBUTION WIDTH 15.8 % (11.5-14.5); WHITE BLOOD COUNT 10.7 K/uL (4.8-10.8)
[2018-10-15 09:08] LABS: BLOOD UREA NITROGEN 21 mg/dL (7-17); CALCIUM 9.2 mg/dl (8.6-10.4); GFR NON-AFRICAN AMERICAN 60
[2018-10-15] MEDS ORDERED: Pneumococcal 23-Valent Vaccine IM ONE (10:00)
--- NOTE | 2018-10-15 10:02 | CP.PCM.PN ---
<Anca Funez - Last Filed: 10/15/18 09:59> Subjective - Date & Time of Evaluation Date of Evaluation: 10/15/18 Time of Evaluation: 07:00 - Subjective Subjective: GI Fellow PGY 5 Pt seen and evaluated at bedside, pt with no issues overnight. Tolerating diet. No BM. ROS; A 12pt ROS was negative except as above. Objective - Vital Signs/Intake and Output Vital Signs (last 24 hours): Temp Pulse Resp BP Pulse Ox 97.9 F 96 H 20 125/83 97 10/15/18 07:00 10/15/18 07:00 10/15/18 07:00 10/15/18 07:00 10/15/18 07:00 Intake and Output: 10/15/18 10/15/18 06:59 18:59 Intake Total 660 Balance 660 - Medications Medications: Current Medications Albuterol/Ipratropium (Duoneb 3 Mg/0.5 Mg (3 Ml) Ud) 3 ml INH RQ6 [facility] Last Admin: 10/15/18 01:20 Dose: 3 ml Apixaban (Eliquis) 2.5 mg PO BID [facility] Last Admin: 10/14/18 17:33 Dose: 2.5 mg Aspirin (Ecotrin) 81 mg PO DAILY [facility] Last Admin: 10/14/18 09:52 Dose: 81 mg Budesonide (Pulmicort Respules) 0.5 mg INH RQ12 [facility] Last Admin: 10/14/18 20:28 Dose: 0.5 mg Carvedilol (Coreg) 25 mg PO BID [facility] Last Admin: 10/14/18 17:32 Dose: 25 mg Diltiazem HCl (Cardizem Cd) 180 mg PO DAILY [facility] Last Admin: 10/14/18 09:52 Dose: 180 mg Docusate Sodium (Colace) 100 mg PO BID [facility] Last Admin: 10/14/18 17:32 Dose: 100 mg Home Med (Patient's Own Medication) 1 tab PO DAILY [facility] Stop: 10/20/18 10:01 Last Admin: 10/14/18 09:52 Dose: 1 tab Ceftriaxone Sodium 1 gm/ (Sodium Chloride) 100 mls @ 100 mls/hr IVPB DAILY [facility]; Protocol Last Admin: 10/14/18 09:51 Dose: 100 mls/hr Azithromycin (Zithromax 500mg In Ns Addvantage) 500 mg in 250 mls @ 167 mls/hr IVPB Q24H [facility]; Protocol Last Admin: 10/14/18 11:45 Dose: 167 mls/hr Insulin Human Regular (Novolin R) 0 unit SC ACHS [facility]; Protocol Last Admin: 10/15/18 08:30 Dose: Not Given Magnesium Hydroxide (Milk Of Magnesia) 30 ml PO PCL PRN PRN Reason: Constipation Megestrol Acetate (Megace) 400 mg PO DAILY [facility] Last Admin: 10/14/18 09:52 Dose: 400 mg Pneumococcal Polyvalent Vaccine (Pneumovax 23 Vaccine) 0.5 ml IM .ONCE ONE Stop: 10/15/18 10:01 Polyethylene Glycol (Miralax) 17 gm PO DAILY [facility] Last Admin: 10/14/18 12:41 Dose: 17 gm Rosuvastatin Calcium (Crestor) 10 mg PO HS [facility] Last Admin: 10/14/18 22:40 Dose: 10 mg Sennosides (Senokot Tab) 8.6 mg PO BID [facility] Last Admin: 10/14/18 17:32 Dose: 8.6 mg Sertraline HCl (Zoloft) 50 mg PO DAILY [facility] Last Admin: 10/14/18 09:53 Dose: 50 mg Sitagliptin Phosphate (Januvia) 50 mg PO DAILY [facility] - Labs Labs: 10/15/18 08:39 10/15/18 08:39 PT 20.4 SECONDS (9.7-12.2) H 10/14/18 07:19 INR 1.9 10/14/18 07:19 APTT 32.0 SECONDS (21-34) 10/14/18 07:19 - Constitutional Appears: Non-toxic, No Acute Distress - Head Exam Head Exam: ATRAUMATIC, NORMAL INSPECTION, NORMOCEPHALIC - Eye Exam Eye Exam: EOMI, Normal appearance, PERRL - ENT Exam ENT Exam: Mucous Membranes Moist, Normal Exam - Neck Exam Neck Exam: Full ROM, Normal Inspection - Respiratory Exam Respiratory Exam: Clear to Ausculation Bilateral, NORMAL BREATHING PATTERN - Cardiovascular Exam Cardiovascular Exam: REGULAR RHYTHM, RRR, +S1, +S2 - GI/Abdominal Exam GI & Abdominal Exam: Soft, Normal Bowel Sounds. absent: Distended, Firm, Tenderness - Rectal Exam Rectal Exam: Deferred - Extremities Exam Extremities Exam: Full ROM, Normal Inspection - Neurological Exam Neurological Exam: Alert, Awake, Oriented x3 - Psychiatric Exam Psychiatric exam: Normal Affect, Normal Mood - Skin Skin Exam: Dry, Intact, Normal Color, Warm Assessment and Plan - Assessment and Plan (Free Text) Assessment: 1. FOBT+ 2. Anemia 3. hx of rectal prolaspe 4. constipation 5. Colon polyps -Pt with no overt GI bleeding at this time -H/H stable, vitals stable -Pt with hx of large polyps and pt's daughter needs to followup with primary GI doctor for possible repeat colonoscopy -Pt's family hesitant for any procedures due to advanced age and risks vs benefit -FOBT can be from colon polyps and recurrent rectal prolapse in setting of OAC -Pt with severe constipation, recommend miralax daily -No plan for endoscopic evaluation at this time -CT A/P po contrast to r/o GI malignancy -Will continue to follow pt closely <Gael Banuelos - Last Filed: 10/15/18 10:45> Objective - Vital Signs/Intake and Output Vital Signs (last 24 hours): Temp Pulse Resp BP Pulse Ox 97.9 F 96 H 20 125/83 97 10/15/18 07:00 10/15/18 07:00 10/15/18 07:00 10/15/18 07:00 10/15/18 07:00 Intake and Output: 10/15/18 10/15/18 06:59 18:59 Intake Total 660 Balance 660 - Medications Medications: Current Medications Albuterol/Ipratropium (Duoneb 3 Mg/0.5 Mg (3 Ml) Ud) 3 ml INH RQ6 [facility] Last Admin: 10/15/18 01:20 Dose: 3 ml Apixaban (Eliquis) 2.5 mg PO BID [facility] Last Admin: 10/14/18 17:33 Dose: 2.5 mg Aspirin (Ecotrin) 81 mg PO DAILY [facility] Last Admin: 10/14/18 09:52 Dose: 81 mg Budesonide (Pulmicort Respules) 0.5 mg INH RQ12 [facility] Last Admin: 10/14/18 20:28 Dose: 0.5 mg Carvedilol (Coreg) 25 mg PO BID [facility] Last Admin: 10/14/18 17:32 Dose: 25 mg Diltiazem HCl (Cardizem Cd) 180 mg PO DAILY [facility] Last Admin: 10/14/18 09:52 Dose: 180 mg Docusate Sodium (Colace) 100 mg PO BID [facility] Last Admin: 10/14/18 17:32 Dose: 100 mg Home Med (Patient's Own Medication) 1 tab PO DAILY [facility] Stop: 10/20/18 10:01 Last Admin: 10/14/18 09:52 Dose: 1 tab Ceftriaxone Sodium 1 gm/ (Sodium Chloride) 100 mls @ 100 mls/hr IVPB DAILY [facility]; Protocol Last Admin: 10/14/18 09:51 Dose: 100 mls/hr Azithromycin (Zithromax 500mg In Ns Addvantage) 500 mg in 250 mls @ 167 mls/hr IVPB Q24H [facility]; Protocol Last Admin: 10/14/18 11:45 Dose: 167 mls/hr Insulin Human Regular (Novolin R) 0 unit SC ACHS [facility]; Protocol Last Admin: 10/15/18 08:30 Dose: Not Given Magnesium Hydroxide (Milk Of Magnesia) 30 ml PO PCL PRN PRN Reason: Constipation Megestrol Acetate (Megace) 400 mg PO DAILY [facility] Last Admin: 10/14/18 09:52 Dose: 400 mg Polyethylene Glycol (Miralax) 17 gm PO DAILY [facility] Last Admin: 10/14/18 12:41 Dose: 17 gm Rosuvastatin Calcium (Crestor) 10 mg PO HS [facility] Last Admin: 10/14/18 22:40 Dose: 10 mg Sennosides (Senokot Tab) 8.6 mg PO BID [facility] Last Admin: 10/14/18 17:32 Dose: 8.6 mg Sertraline HCl (Zoloft) 50 mg PO DAILY [facility] Last Admin: 10/14/18 09:53 Dose: 50 mg Sitagliptin Phosphate (Januvia) 50 mg PO DAILY [facility] - Labs Labs: 10/15/18 08:39 10/15/18 08:39 PT 20.4 SECONDS (9.7-12.2) H 10/14/18 07:19 INR 1.9 10/14/18 07:19 APTT 32.0 SECONDS (21-34) 10/14/18 07:19 Attending/Attestation - Attestation I have personally seen and examined this patient.: Yes I have fully participated in the care of the patient.: Yes I have reviewed all pertinent clinical information, including history, physical exam and plan: Yes Notes (Text): 10/15/18 10:42 I have seen and examined patient with GI fellow. No acute events overnight, she is seen resting in bed comfortably. No bowel movements over past 24 hours. She denies abdominal pain, nausea, vomiting. Tolerating PO diet without difficulty. Pneumonia Atrial fibrillation on eliquis Anemia, stool occult blood positive Constipation Weight loss - Diet as tolerated - H/H stable, continue to monitor - Continue with antibiotic therapy as per medical team - Obtain CT imaging of abdomen/pelvis given anemia and weight loss - Maintain bowel regimen to prevent constipation - Will continue to monitor patient clinical course
[2018-10-15] MEDS ORDERED: Iohexol 240 (50 ml) PO ONE (10:30)
[2018-10-15] MEDS: POLYETHYLENE GLYCOL 3350 17 GM/Dose PACKET PO SCH (10:52)
[2018-10-15] MEDS: diltiaZEM 180 mg/24 Hours CD Cap PO SCH (10:52)
[2018-10-15] MEDS: Megestrol Acetate 40 mg/ml Cup PO SCH (10:52)
[2018-10-15] MEDS: VESICARE 10MG PO SCH (10:55)
[2018-10-15] MEDS: Azithromycin 500mg/250ML NS 500 MG/250 ML BAG IVPB SCH (13:00)
--- NOTE | 2018-10-15 21:22 | CP.PCM.PN ---
Subjective - Date & Time of Evaluation Date of Evaluation: 10/15/18 Time of Evaluation: 08:00 - Subjective Subjective: 83 F was admitted for GI bleed and pneumonia. Referred for ID evaluation of pneumonia. She is complaining of cough. Denies fever/chills, cp, SOB, abd pain, n/v/d, urinary symptoms. Empiric IV antibiotics in progress - cultures so far negative Objective - Vital Signs/Intake and Output Vital Signs (last 24 hours): Temp Pulse Resp BP Pulse Ox 98.1 F 79 20 100/67 95 10/15/18 16:00 10/15/18 16:00 10/15/18 16:00 10/15/18 18:45 10/15/18 16:00 Intake and Output: 10/15/18 10/16/18 18:59 06:59 Intake Total 1550 Balance 1550 - Medications Medications: Current Medications Albuterol/Ipratropium (Duoneb 3 Mg/0.5 Mg (3 Ml) Ud) 3 ml INH RQ6 [facility] Last Admin: 10/15/18 21:13 Dose: 3 ml Apixaban (Eliquis) 2.5 mg PO BID [facility] Last Admin: 10/15/18 18:44 Dose: 2.5 mg Aspirin (Ecotrin) 81 mg PO DAILY [facility] Last Admin: 10/15/18 10:53 Dose: 81 mg Budesonide (Pulmicort Respules) 0.5 mg INH RQ12 [facility] Last Admin: 10/15/18 21:13 Dose: 0.5 mg Carvedilol (Coreg) 25 mg PO BID [facility] Last Admin: 10/15/18 18:45 Dose: Not Given Diltiazem HCl (Cardizem Cd) 180 mg PO DAILY [facility] Last Admin: 10/15/18 10:52 Dose: 180 mg Docusate Sodium (Colace) 100 mg PO BID [facility] Last Admin: 10/15/18 18:44 Dose: 100 mg Home Med (Patient's Own Medication) 1 tab PO DAILY [facility] Stop: 10/20/18 10:01 Last Admin: 10/15/18 10:55 Dose: 1 tab Ceftriaxone Sodium 1 gm/ (Sodium Chloride) 100 mls @ 100 mls/hr IVPB DAILY [facility]; Protocol Last Admin: 10/15/18 11:00 Dose: 100 mls/hr Azithromycin (Zithromax 500mg In Ns Addvantage) 500 mg in 250 mls @ 167 mls/hr IVPB Q24H [facility]; Protocol Last Admin: 10/15/18 13:00 Dose: 167 mls/hr Insulin Human Regular (Novolin R) 0 unit SC ACHS [facility]; Protocol Last Admin: 10/15/18 16:55 Dose: Not Given Magnesium Hydroxide (Milk Of Magnesia) 30 ml PO PCL PRN PRN Reason: Constipation Megestrol Acetate (Megace) 400 mg PO DAILY [facility] Last Admin: 10/15/18 10:52 Dose: 400 mg Polyethylene Glycol (Miralax) 17 gm PO DAILY [facility] Last Admin: 10/15/18 10:52 Dose: 17 gm Rosuvastatin Calcium (Crestor) 10 mg PO HS [facility] Last Admin: 10/15/18 21:16 Dose: 10 mg Sennosides (Senokot Tab) 8.6 mg PO BID [facility] Last Admin: 10/15/18 18:44 Dose: 8.6 mg Sertraline HCl (Zoloft) 50 mg PO DAILY [facility] Last Admin: 10/15/18 10:54 Dose: 50 mg Sitagliptin Phosphate (Januvia) 50 mg PO DAILY [facility] Last Admin: 10/15/18 10:54 Dose: 50 mg - Labs Labs: 10/15/18 08:39 10/15/18 08:39 PT 20.4 SECONDS (9.7-12.2) H 10/14/18 07:19 INR 1.9 10/14/18 07:19 APTT 32.0 SECONDS (21-34) 10/14/18 07:19 - Constitutional Appears: Non-toxic, No Acute Distress, Chronically Ill - Head Exam Head Exam: ATRAUMATIC, NORMAL INSPECTION, NORMOCEPHALIC - Eye Exam Eye Exam: EOMI, Normal appearance, PERRL Pupil Exam: NORMAL ACCOMODATION, PERRL - ENT Exam ENT Exam: Mucous Membranes Moist, Normal Exam - Neck Exam Neck Exam: Full ROM, Normal Inspection. absent: Lymphadenopathy - Respiratory Exam Respiratory Exam: Clear to Ausculation Bilateral, NORMAL BREATHING PATTERN - Cardiovascular Exam Cardiovascular Exam: REGULAR RHYTHM, +S1, +S2. absent: Murmur - GI/Abdominal Exam GI & Abdominal Exam: Soft, Normal Bowel Sounds. absent: Tenderness - Rectal Exam Rectal Exam: Deferred - Exam Exam: NORMAL INSPECTION - Extremities Exam Extremities Exam: Full ROM, Normal Capillary Refill, Normal Inspection. absent: Joint Swelling, Pedal Edema - Back Exam Back Exam: NORMAL INSPECTION - Neurological Exam Neurological Exam: Alert, Awake, CN II-XII Intact, Normal Gait, Oriented x3 - Psychiatric Exam Psychiatric exam: Normal Affect, Normal Mood - Skin Skin Exam: Dry, Intact, Normal Color, Warm Assessment and Plan (1) Cystocele Status: Acute (2) Diabetes mellitus Status: Acute (3) Diverticular disease of colon Status: Acute (4) Gout Status: Acute (5) Hemorrhoids Status: Acute (6) History of atrial fibrillation Status: Acute (7) History of colon polyps Status: Acute (8) Hyperlipidemia Status: Acute (9) CAP (community acquired pneumonia) Status: Acute - Assessment and Plan (Free Text) Assessment: cont empiric IV rx await cultures and serologies
--- NOTE | 2018-10-15 23:39 | CP.PCM.CON ---
Past Patient History - Past Medical History & Family History Past Medical History?: Yes - Past Social History Smoking Status: Unknown If Ever Smoked - CARDIAC Hx Hypercholesterolemia: Yes Hx Hypertension: Yes - PULMONARY Hx Asthma: Yes - NEUROLOGICAL HX Cerebrovascular Accident: Yes - HEENT Hx HEENT Problems: Yes Other/Comment: USES GLASSES FOR READING - RENAL Hx Chronic Kidney Disease: Yes - ENDOCRINE/METABOLIC Hx Diabetes Mellitus Type 1: Yes - HEMATOLOGICAL/ONCOLOGICAL Hx Blood Disorders: No - INTEGUMENTARY Hx Dermatological Problems: No - MUSCULOSKELETAL/RHEUMATOLOGICAL Hx Falls: Yes - GASTROINTESTINAL Hx Gastrointestinal Disorders: Yes Other/Comment: RECTAL POLYP - GENITOURINARY/GYNECOLOGICAL Hx Genitourinary Disorders: Yes Hx Incontinence: Yes - PSYCHIATRIC Hx Substance Use: No - SURGICAL HISTORY Hx Surgeries: Yes Other/Comment: BREAST REDUCTION 1990, MICAELA HERNADEZ 1990. colonoscopy; colorectal - ANESTHESIA Hx Anesthesia: Yes Hx Anesthesia Reactions: No Hx Malignant Hyperthermia: No Meds Allergies/Adverse Reactions: Allergies Allergy/AdvReac Type Severity Reaction Status Date / Time No Known Allergies Allergy Verified 10/13/18 16:16 - Medications Medications: Current Medications Albuterol/Ipratropium (Duoneb 3 Mg/0.5 Mg (3 Ml) Ud) 3 ml INH RQ6 [facility] Last Admin: 10/15/18 21:13 Dose: 3 ml Apixaban (Eliquis) 2.5 mg PO BID [facility] Last Admin: 10/15/18 18:44 Dose: 2.5 mg Aspirin (Ecotrin) 81 mg PO DAILY [facility] Last Admin: 10/15/18 10:53 Dose: 81 mg Budesonide (Pulmicort Respules) 0.5 mg INH RQ12 [facility] Last Admin: 10/15/18 21:13 Dose: 0.5 mg Carvedilol (Coreg) 25 mg PO BID [facility] Last Admin: 10/15/18 18:45 Dose: Not Given Diltiazem HCl (Cardizem Cd) 180 mg PO DAILY [facility] Last Admin: 10/15/18 10:52 Dose: 180 mg Docusate Sodium (Colace) 100 mg PO BID [facility] Last Admin: 10/15/18 18:44 Dose: 100 mg Home Med (Patient's Own Medication) 1 tab PO DAILY [facility] Stop: 10/20/18 10:01 Last Admin: 10/15/18 10:55 Dose: 1 tab Ceftriaxone Sodium 1 gm/ (Sodium Chloride) 100 mls @ 100 mls/hr IVPB DAILY [facility]; Protocol Last Admin: 10/15/18 11:00 Dose: 100 mls/hr Azithromycin (Zithromax 500mg In Ns Addvantage) 500 mg in 250 mls @ 167 mls/hr IVPB Q24H [facility]; Protocol Last Admin: 10/15/18 13:00 Dose: 167 mls/hr Insulin Human Regular (Novolin R) 0 unit SC ACHS [facility]; Protocol Last Admin: 10/15/18 21:39 Dose: Not Given Magnesium Hydroxide (Milk Of Magnesia) 30 ml PO PCL PRN PRN Reason: Constipation Megestrol Acetate (Megace) 400 mg PO DAILY [facility] Last Admin: 10/15/18 10:52 Dose: 400 mg Polyethylene Glycol (Miralax) 17 gm PO DAILY [facility] Last Admin: 10/15/18 10:52 Dose: 17 gm Rosuvastatin Calcium (Crestor) 10 mg PO HS [facility] Last Admin: 10/15/18 21:16 Dose: 10 mg Sennosides (Senokot Tab) 8.6 mg PO BID [facility] Last Admin: 10/15/18 18:44 Dose: 8.6 mg Sertraline HCl (Zoloft) 50 mg PO DAILY [facility] Last Admin: 10/15/18 10:54 Dose: 50 mg Sitagliptin Phosphate (Januvia) 50 mg PO DAILY [facility] Last Admin: 10/15/18 10:54 Dose: 50 mg Results - Vital Signs Recent Vital Signs: Last Vital Signs Temp 98.4 F 10/15/18 23:36 Pulse 104 H 10/15/18 23:36 Resp 20 10/15/18 23:36 BP 108/60 10/15/18 23:36 Pulse Ox 95 10/15/18 23:36 - Labs Result Diagrams: 10/15/18 08:39 10/15/18 08:39 Labs: Laboratory Results - last 24 hr 10/14/18 10/15/18 10/15/18 23:00 07:11 08:39 WBC RBC Hgb Hct MCV MCH MCHC RDW Plt Count MPV Neut % (Auto) Lymph % (Auto) Whiteside % (Auto) Eos % (Auto) Baso % (Auto) Neut # (Auto) Lymph # (Auto) [place] # (Auto) Eos # (Auto) Baso # (Auto) Sodium 140 Potassium 4.3 Chloride 107 Carbon Dioxide 22 Anion Gap 15 BUN 21 H Creatinine 0.9 Est GFR ( Amer) > 60 Est GFR (Non-Af Amer) 60 POC Glucose (mg/dL) 99 Random Glucose 96 Calcium 9.2 TSH 3rd Generation 2.88 Influenza Typ A,B (EIA) Negative for flu a/b Ur L.pneumophila Ag 10/15/18 10/15/18 10/15/18 08:39 11:27 16:28 WBC 10.7 RBC 3.85 Hgb 10.4 L Hct 31.9 L MCV 82.8 MCH 27.1 MCHC 32.7 L RDW 15.8 H Plt Count 561 H MPV 6.9 L Neut % (Auto) 76.4 H Lymph % (Auto) 15.3 L Whiteside % (Auto) 7.5 Eos % (Auto) 0.3 Baso % (Auto) 0.5 Neut # (Auto) 8.2 H Lymph # (Auto) 1.6 Whiteside # (Auto) 0.8 Eos # (Auto) 0.0 Baso # (Auto) 0.1 Sodium Potassium Chloride Carbon Dioxide Anion Gap BUN Creatinine Est GFR ( Amer) Est GFR (Non-Af Amer) POC Glucose (mg/dL) 205 H 96 Random Glucose Calcium TSH 3rd Generation Influenza Typ A,B (EIA) Ur L.pneumophila Ag 10/15/18 10/15/18 21:12 21:52 WBC RBC Hgb Hct MCV MCH MCHC RDW Plt Count MPV Neut % (Auto) Lymph % (Auto) Whiteside % (Auto) Eos % (Auto) Baso % (Auto) Neut # (Auto) Lymph # (Auto) Whiteside # (Auto) Eos # (Auto) Baso # (Auto) Sodium Potassium Chloride Carbon Dioxide Anion Gap BUN Creatinine Est GFR ( Amer) Est GFR (Non-Af Amer) POC Glucose (mg/dL) 109 Random Glucose Calcium TSH 3rd Generation Influenza Typ A,B (EIA) Ur L.pneumophila Ag Negative Assessment & Plan - Assessment and Plan (Free Text) Assessment: IMP: Hx of prolapsed bladder Nocturia full note tbd discussed w pt and daughter - Date & Time Date: 10/15/18 Time: 09:30
[2018-10-16] MEDS: Albuterol-Ipratrop 3 mg / 0.5 (3 ml) UD INH SCH ×4 (01:04→21:26)
[2018-10-16] MEDS: (Novolin R) Insulin Human Regular 100 units/ml vial SC SCH ×4 (08:08→21:22)
--- NOTE | 2018-10-16 08:24 | CP.PCM.PN ---
<Armin,Anca - Last Filed: 10/16/18 08:22> Subjective - Date & Time of Evaluation Date of Evaluation: 10/16/18 Time of Evaluation: 07:00 - Subjective Subjective: GI Fellow PGY5 Progress Note Pt seen and evaluated at bedside, pt with no BM per nursing. Tolerating diet. ROS: A 12pt ROS was negative except as above. Objective - Vital Signs/Intake and Output Vital Signs (last 24 hours): Temp Pulse Resp BP Pulse Ox 98.4 F 104 H 20 108/60 96 10/15/18 23:36 10/15/18 23:36 10/15/18 23:36 10/15/18 23:36 10/16/18 07:11 Intake and Output: 10/16/18 10/16/18 06:59 18:59 Intake Total 690 Balance 690 - Medications Medications: Current Medications Albuterol/Ipratropium (Duoneb 3 Mg/0.5 Mg (3 Ml) Ud) 3 ml INH RQ6 [facility] Last Admin: 10/16/18 01:04 Dose: Not Given Apixaban (Eliquis) 2.5 mg PO BID [facility] Last Admin: 10/15/18 18:44 Dose: 2.5 mg Aspirin (Ecotrin) 81 mg PO DAILY [facility] Last Admin: 10/15/18 10:53 Dose: 81 mg Budesonide (Pulmicort Respules) 0.5 mg INH RQ12 [facility] Last Admin: 10/15/18 21:13 Dose: 0.5 mg Carvedilol (Coreg) 25 mg PO BID [facility] Last Admin: 10/15/18 18:45 Dose: Not Given Diltiazem HCl (Cardizem Cd) 180 mg PO DAILY [facility] Last Admin: 10/15/18 10:52 Dose: 180 mg Docusate Sodium (Colace) 100 mg PO BID [facility] Last Admin: 10/15/18 18:44 Dose: 100 mg Home Med (Patient's Own Medication) 1 tab PO DAILY [facility] Stop: 10/20/18 10:01 Last Admin: 10/15/18 10:55 Dose: 1 tab Ceftriaxone Sodium 1 gm/ (Sodium Chloride) 100 mls @ 100 mls/hr IVPB DAILY [facility]; Protocol Last Admin: 10/15/18 11:00 Dose: 100 mls/hr Azithromycin (Zithromax 500mg In Ns Addvantage) 500 mg in 250 mls @ 167 mls/hr IVPB Q24H [facility]; Protocol Last Admin: 10/15/18 13:00 Dose: 167 mls/hr Insulin Human Regular (Novolin R) 0 unit SC ACHS [facility]; Protocol Last Admin: 10/16/18 08:08 Dose: Not Given Magnesium Hydroxide (Milk Of Magnesia) 30 ml PO PCL PRN PRN Reason: Constipation Megestrol Acetate (Megace) 400 mg PO DAILY [facility] Last Admin: 10/15/18 10:52 Dose: 400 mg Polyethylene Glycol (Miralax) 17 gm PO DAILY [facility] Last Admin: 10/15/18 10:52 Dose: 17 gm Rosuvastatin Calcium (Crestor) 10 mg PO HS [facility] Last Admin: 10/15/18 21:16 Dose: 10 mg Sennosides (Senokot Tab) 8.6 mg PO BID [facility] Last Admin: 10/15/18 18:44 Dose: 8.6 mg Sertraline HCl (Zoloft) 50 mg PO DAILY [facility] Last Admin: 10/15/18 10:54 Dose: 50 mg Sitagliptin Phosphate (Januvia) 50 mg PO DAILY [facility] Last Admin: 10/15/18 10:54 Dose: 50 mg - Labs Labs: 10/15/18 08:39 10/15/18 08:39 PT 20.4 SECONDS (9.7-12.2) H 10/14/18 07:19 INR 1.9 10/14/18 07:19 APTT 32.0 SECONDS (21-34) 10/14/18 07:19 - Constitutional Appears: Non-toxic, No Acute Distress - Head Exam Head Exam: ATRAUMATIC, NORMAL INSPECTION, NORMOCEPHALIC - Eye Exam Eye Exam: EOMI, Normal appearance, PERRL Pupil Exam: PERRL - ENT Exam ENT Exam: Mucous Membranes Moist, Normal Exam - Neck Exam Neck Exam: Full ROM, Normal Inspection - Respiratory Exam Respiratory Exam: Decreased Breath Sounds, Clear to Ausculation Bilateral, NO RMAL BREATHING PATTERN - Cardiovascular Exam Cardiovascular Exam: Irregular Rhythm, +S1, +S2 - GI/Abdominal Exam GI & Abdominal Exam: Soft, Normal Bowel Sounds. absent: Distended, Firm, Guarding, Tenderness - Extremities Exam Extremities Exam: Full ROM, Normal Inspection - Neurological Exam Neurological Exam: Alert, Awake - Psychiatric Exam Psychiatric exam: Normal Affect, Normal Mood - Skin Skin Exam: Dry, Intact, Normal Color, Warm Assessment and Plan - Assessment and Plan (Free Text) Assessment: 1. FOBT+ 2. Anemia 3. hx of rectal prolaspe 4. constipation 5. Colon polyps -Pt with no overt GI bleeding at this time -H/H stable, vitals stable -Pt with severe constipation, recommend miralax bid -CT A/P po contrast negative for GI malignancy -No plan for endoscopic evaluation at this time -Follow up outpatient with primary GI for possible colonoscopy <Gael Banuelos - Last Filed: 10/16/18 10:10> Objective - Vital Signs/Intake and Output Vital Signs (last 24 hours): Temp Pulse Resp BP Pulse Ox 97.8 F 92 H 20 127/71 96 10/16/18 07:00 10/16/18 07:00 10/16/18 07:00 10/16/18 07:00 10/16/18 07:11 Intake and Output: 10/16/18 10/16/18 06:59 18:59 Intake Total 690 Balance 690 - Medications Medications: Current Medications Albuterol/Ipratropium (Duoneb 3 Mg/0.5 Mg (3 Ml) Ud) 3 ml INH RQ6 [facility] Last Admin: 10/16/18 09:01 Dose: 3 ml Apixaban (Eliquis) 2.5 mg PO BID [facility] Last Admin: 10/15/18 18:44 Dose: 2.5 mg Aspirin (Ecotrin) 81 mg PO DAILY [facility] Last Admin: 10/15/18 10:53 Dose: 81 mg Budesonide (Pulmicort Respules) 0.5 mg INH RQ12 [facility] Last Admin: 10/16/18 09:02 Dose: 0.5 mg Carvedilol (Coreg) 25 mg PO BID [facility] Last Admin: 10/15/18 18:45 Dose: Not Given Diltiazem HCl (Cardizem Cd) 180 mg PO DAILY [facility] Last Admin: 10/15/18 10:52 Dose: 180 mg Docusate Sodium (Colace) 100 mg PO BID [facility] Last Admin: 10/15/18 18:44 Dose: 100 mg Home Med (Patient's Own Medication) 1 tab PO DAILY [facility] Stop: 10/20/18 10:01 Last Admin: 10/15/18 10:55 Dose: 1 tab Ceftriaxone Sodium 1 gm/ (Sodium Chloride) 100 mls @ 100 mls/hr IVPB DAILY [facility]; Protocol Last Admin: 10/15/18 11:00 Dose: 100 mls/hr Azithromycin (Zithromax 500mg In Ns Addvantage) 500 mg in 250 mls @ 167 mls/hr IVPB Q24H [facility]; Protocol Last Admin: 10/15/18 13:00 Dose: 167 mls/hr Insulin Human Regular (Novolin R) 0 unit SC ACHS [facility]; Protocol Last Admin: 10/16/18 08:08 Dose: Not Given Magnesium Hydroxide (Milk Of Magnesia) 30 ml PO PCL PRN PRN Reason: Constipation Megestrol Acetate (Megace) 400 mg PO DAILY [facility] Last Admin: 10/15/18 10:52 Dose: 400 mg Polyethylene Glycol (Miralax) 17 gm PO DAILY [facility] Last Admin: 10/15/18 10:52 Dose: 17 gm Rosuvastatin Calcium (Crestor) 10 mg PO HS [facility] Last Admin: 10/15/18 21:16 Dose: 10 mg Sennosides (Senokot Tab) 8.6 mg PO BID [facility] Last Admin: 10/15/18 18:44 Dose: 8.6 mg Sertraline HCl (Zoloft) 50 mg PO DAILY [facility] Last Admin: 10/15/18 10:54 Dose: 50 mg Sitagliptin Phosphate (Januvia) 50 mg PO DAILY [facility] Last Admin: 10/15/18 10:54 Dose: 50 mg - Labs Labs: 10/15/18 08:39 10/15/18 08:39 PT 20.4 SECONDS (9.7-12.2) H 10/14/18 07:19 INR 1.9 10/14/18 07:19 APTT 32.0 SECONDS (21-34) 10/14/18 07:19 Attending/Attestation - Attestation I have personally seen and examined this patient.: Yes I have fully participated in the care of the patient.: Yes I have reviewed all pertinent clinical information, including history, physical exam and plan: Yes Notes (Text): 10/16/18 10:07 I have seen and examined patient with GI fellow. No acute events overnight, she is seen sitting in bed eating breakfast and appears quite comfortable. She denies abdominal pain, nausea, vomiting, fever/chills. Tolerating PO diet without difficulty, no bowel movements yesterday. DM/HTN Atrial fibrillation on eliquis Pneumonia Anemia, stool occult blood positive Constipation - Diet as tolerated - H/H stable, continue to monitor - CT imaging reviewed by me showing no gross GI pathology - Maintain bowel regimen to prevent constipation - No further planned GI intervention at this time. Patient should follow up with Dr. Valente following hospital discharge given prior colonoscopy with apparent unresected polyp as per family. Please reconsult as necessary, thank you.
[2018-10-16] MEDS: Budesonide 0.5 mg/2 ml Inhal Susp UD INH SCH ×2 (09:02→21:26)
[2018-10-16] MEDS: Megestrol Acetate 40 mg/ml Cup PO SCH (10:48)
--- NOTE | 2018-10-16 10:53 | CT ---
Date of service: 10/15/2018 PROCEDURE: CT Abdomen and Pelvis without intravenous contrast HISTORY: r/o colon malignancy COMPARISON: 07/04/2018 TECHNIQUE: Without contrast.. Contrast dose: 0 Radiation dose: Total exam DLP = 820.55 mGy-cm. This CT exam was performed using one or more of the following dose reduction techniques: Automated exposure control, adjustment of the mA and/or kV according to patient size, and/or use of iterative reconstruction technique. FINDINGS: LOWER THORAX: Unremarkable. LIVER: Diffuse nodular infiltrate in the right lower lobe increased in extent compared to prior CT examination, possibly reflecting tree in bud pattern from small airways disease. There is also some lisa right lower lobe consolidation which may reflect infiltrate or atelectasis. Cardiomegaly. Small pericardial effusion. Mitral annular calcification. GALLBLADDER AND BILE DUCTS: Unremarkable. PANCREAS: Unremarkable. No gross lesion or ductal dilatation. SPLEEN: Unremarkable. ADRENALS: Unremarkable. No mass. KIDNEYS AND URETERS: Bilateral mild hydronephrosis and hydroureter, left greater than right.. 2 mm nonobstructing distal left ureteral calculus proximal to the ureterovesical junction. No renal calculus. No renal mass or perinephric fluid. VASCULATURE: Unremarkable. No aortic aneurysm. There is atherosclerotic calcification of the abdominal aorta. BOWEL: Evaluation of the colon is somewhat limited due to the density of orally administered contrast material within the colon and resulting beam hardening artifact. No abnormal bowel loops. No evidence of colonic malignancy. This is not considered a sensitive examination for colon malignancy. No bowel obstruction. Evidence of prior rectal anastomosis. APPENDIX: Not definitely identified. No secondary findings to suggest appendicitis. PERITONEUM: No ascites or pneumoperitoneum. Bilateral inguinal hernias containing only mesenteric fat. LYMPH NODES: Unremarkable. No enlarged lymph nodes. BLADDER: Unremarkable. REPRODUCTIVE: Unremarkable. BONES: No acute fracture. OTHER FINDINGS: None. IMPRESSION: No evidence of colon malignancy. Bilateral hydronephrosis and hydroureter. 2 mm nonobstructing calculus of the distal left ureter proximal to the ureterovesical junction. Etiology of hydronephrosis/hydroureter unclear from this examination. Evidence of prior rectal anastomosis. Possible small airways disease in right lower lobe. There is mild right lower lobe consolidation possibly infiltrate versus atelectasis. Bilateral inguinal hernias containing only mesenteric fat. The preliminary findings for this examination were reported by [facility] at 10:38 p.m. on 10/15/2018. There is concurrence of this report with the preliminary findings.
[2018-10-16] MEDS: VESICARE 10MG PO SCH (11:00)
[2018-10-16] MEDS: POLYETHYLENE GLYCOL 3350 17 GM/Dose PACKET PO SCH (11:00)
[2018-10-16] MEDS: diltiaZEM 180 mg/24 Hours CD Cap PO SCH (11:00)
[2018-10-16] MEDS: Azithromycin 500mg/250ML NS 500 MG/250 ML BAG IVPB SCH (12:40)
[2018-10-16] MEDS: Magnesium Hydroxide Susp 30 ml UD PO PRN (21:04)
[2018-10-17] MEDS: Albuterol-Ipratrop 3 mg / 0.5 (3 ml) UD INH SCH ×4 (02:30→19:25)
[2018-10-17] MEDS: (Novolin R) Insulin Human Regular 100 units/ml vial SC SCH ×4 (08:11→21:18)
[2018-10-17] MEDS: Budesonide 0.5 mg/2 ml Inhal Susp UD INH SCH ×2 (09:59→19:25)
--- NOTE | 2018-10-17 10:07 | PN ---
DATE: 10/15/2018 This case was discussed with Dr. Mcarthur. She is in agreement with the treatment plan. SUBJECTIVE: The patient was admitted on 10/13/2018 with shortness of breath, fatigue, status post fall, knee pain. Chest x-ray revealed pneumonia. The patient has past medical history of rectal and uterine prolapse, syncope, type 2 diabetes, hypercholesterolemia, chronic kidney disease, diverticulosis, rheumatoid arthritis, CAD with stenting. The patient was seen today at the bedside. Daughter at the bedside. I spoke with daughter at length regarding urinary consult for rectal and uterine prolapse. Daughter had some questions about pessary procedure for rectal and uterine prolapse. Discussed with daughter plan and treatment for pneumonia and GI bleed. The patient is denying shortness of breath, chest pain, abdominal pain, hematuria, hematochezia, fever or chills. PHYSICAL EXAMINATION: VITAL SIGNS: Temperature 97.9, pulse rate 96, blood pressure 125/83, respiration is 20, and 97% on room air. GENERAL: The patient appeared to be in no acute distress, chronically ill. HEENT: Normocephalic and atraumatic. PERRLA. Mucous membranes moist. NECK: Supple. Normal inspection. No thyromegaly. LUNGS: Clear to auscultation. Scattered wheezing, cleared with cough. CARDIOVASCULAR: S1 and S2. No JVD. ABDOMEN: Soft, nontender. No organomegaly. No guarding or tenderness. SKIN: Intact. No cyanosis. No edema. EXTREMITIES: Moving all extremities. NEUROLOGIC: The patient is alert and oriented x3. Some cognitive deficit. MEDICATIONS: DuoNeb every 6 hours, Eliquis, Ecotrin. The patient is on Pulmicort, Coreg, Rocephin 1 g, Colace, Accu-Chek before meals and at bedtime with Humulin R coverage, MiraLax, Crestor, Senokot, Zoloft, Januvia. LABORATORY DATA: White blood cells 10.7, hemoglobin 10.4, hematocrit 31.9, and platelet is elevated at 561. Chemistry: Sodium 140, potassium 4.3, BUN 21, GFR is over 60, glucose is 205 today. PT 20.4, INR 1.9. ASSESSMENT AND PLAN: This is an 83-year-old female, came in with status post fall, pneumonia, gastrointestinal bleed, rectal and uterine prolapse. Gastroenterology is on the case. Surgery and Urology were also consulted. Pulmonology was consulted. The patient is seen by Urology today. Discussion with daughter regarding pessary procedure, most likely this may have to be done by Obstetrics/Gynecology on outpatient basis. We will follow up with Gastroenterology. The patient had positive stool test. We will monitor laboratories. The patient will continue intravenous antibiotics for pneumonia. We will continue gastrointestinal and deep vein thrombosis prophylaxis. We will follow up. ALL ABOVE NOTED , AGREED WITH [employer] , CHART , LABS AND MEDS NOTED . NEW LABS ORDERED , CONT. SAME TREATMENT . WILL F/U Dinesh Knig APN Rehana Mcarthur MD [id number]
--- NOTE | 2018-10-17 10:35 | PN ---
DATE: 10/16/2018 This case was discussed with Dr. Mcarthur. She is in agreement with treatment plan. SUBJECTIVE: This is an 83-year-old female came in with shortness of breath, fatigue, and knee pain. The patient had fall. Chest x-ray revealed pneumonia. The patient has past medical history of syncope, type 2 diabetes, hyperlipidemia, chronic kidney disease, and uterine prolapse. I saw the patient today at the bedside. She is alert and oriented x2-3. Daughter at the bedside. Had discussion with daughter via outpatient. We consulted CERTIFIED EXECUTIVE CHEF. The patient denying chest pain, shortness of breath, abdominal pain, hematuria, hematochezia, fevers, or chills. Still reporting occasional cough with clear phlegm. PHYSICAL EXAMINATION: GENERAL: The patient appears chronically ill, no acute distress. VITAL SIGNS: Temperature 98.6, pulse rate 78, blood pressure 98/69, respiratory rate 20, and saturating at 94% on room air. HEENT: Normocephalic and atraumatic. PERRLA. Mucous membranes moist. NECK: Supple. Normal inspection. RESPIRATORY: Clear to auscultation. CARDIOVASCULAR: S1 and S2. No JVD. ABDOMEN: Soft and nontender. No organomegaly. EXTREMITIES: The patient moving all extremities. SKIN: Intact. No cyanosis. No edema. NEUROLOGIC: The patient is alert and oriented x3. Cranial nerves II through XII intact. MEDICATIONS: Albuterol, Eliquis, Ecotrin, azithromycin IV piggyback daily, Pulmicort, Rocephin, Cardizem, and Colace. The patient's Accu-Chek a.c. and at bedtime with insulin coverage, Megace, MiraLax, Crestor, Senokot, Zoloft, and Januvia. LABORATORY DATA: White blood cells 10.7, hemoglobin 10.4, hematocrit 31.9, and platelet count 561. From 10/15/2018; sodium 140, potassium 4.3, and BUN is 21. ASSESSMENT AND PLAN: This is an 83-year-old female with pneumonia, status post fall, rectal and uterine prolapse, and hyperlipidemia. Obstetrics and Gynecology was consulted. Pulmonary is on the case. ID is on the case. The patient continuing azithromycin, Eliquis, DuoNeb, Rocephin, reporting less shortness of breath, cough. We will repeat labs and we will follow up.ALL ABOVE NOTED , AGREED WITH CLOTH OPENER HAND TREATMENT PLAN , CHART , LABS AND MEDS NOTED . NEW LABS ORDERED , CONT. SAME TREATMENT . WILL F/U Dinesh King APN Rehana Mcarthur MD SUSANA
[2018-10-17] MEDS: diltiaZEM 180 mg/24 Hours CD Cap PO SCH (10:50)
[2018-10-17] MEDS: VESICARE 10MG PO SCH (10:51)
[2018-10-17] MEDS: Megestrol Acetate 40 mg/ml Cup PO SCH (10:51)
[2018-10-17] MEDS: POLYETHYLENE GLYCOL 3350 17 GM/Dose PACKET PO SCH (10:53)
--- NOTE | 2018-10-17 11:01 | CP.PCM.CON ---
<Hugo Rivera - Last Filed: 10/17/18 18:09> History of Present Illness - History of Present Illness History of Present Illness: PGY3 consult note Patient is an 83 year old female, with PMHx of Atrial fibrillation (on eliquis), diabetes mellitus, CKD, RA, asthma, major depression, hyperlipidemia, hypertension, constipation, rectal prolapse (with surgical correction with Dr. Veloz in early 2018). She was initially presented to ED for knee pain and cough on 10/13/18, and was admitted after CXR in ED showed RLL infiltrate. Service consulted for uterine prolapse. Patient found at bedside, not oriented to person, place, time or context. For further information, patient daughter - Ms Josee Lei - was called. Ms Lei reports mother had CVA in 03/2018 that as sequelae has worsened her dementia. Admits taking her mother to "3 urologists for evaluation of uterine prolapse. Dr Padron, inpatient urologist specification consultant, saw patient as outpatient and recommended Dr Wright (OB surgeon). Patient met with Dr Wright one time for possible pessary insertion but due to patient fecal incontinence the appt was cancelled. Patient ROS limited by patient dementia but denies abdominal/pelvic pain when asked. PMHx: Asthma, afib on eliquis, Depression, CVA (2017), HTN, Hypercholesterolemia, Chronic Kidney Disease, Rheumatoid Arthritis, Chronic constipation PSH: Rectal prolapse repair (2018), BREAST REDUCTION (1990) TUMMY TUCK (1990) ALL: NKDA OB hx: Limited by patient clinical state (daughter reports 4 vaginal deliveries without noted complications) PMD: Erickson Muñoz Review of Systems - Review of Systems Systems not reviewed;Unavailable: Dementia - Gastrointestinal Gastrointestinal: absent: Abdominal Pain Past Patient History - Past Medical History & Family History Past Medical History?: Yes - Past Social History Smoking Status: Unknown If Ever Smoked - CARDIAC Hx Cardia Arrhythmia: Yes Hx Hypercholesterolemia: Yes Hx Hypertension: Yes - PULMONARY Hx Asthma: Yes - NEUROLOGICAL HX Cerebrovascular Accident: Yes - HEENT Hx HEENT Problems: Yes Other/Comment: USES GLASSES FOR READING - RENAL Hx Chronic Kidney Disease: Yes - ENDOCRINE/METABOLIC Hx Diabetes Mellitus Type 1: Yes - HEMATOLOGICAL/ONCOLOGICAL Hx Blood Disorders: No - INTEGUMENTARY Hx Dermatological Problems: No - MUSCULOSKELETAL/RHEUMATOLOGICAL Hx Rheumatoid Arthritis: Yes - GASTROINTESTINAL Hx Gastrointestinal Disorders: Yes Other/Comment: RECTAL POLYP - GENITOURINARY/GYNECOLOGICAL Hx Genitourinary Disorders: Yes Hx Incontinence: Yes - PSYCHIATRIC Hx Depression: Yes Hx Substance Use: No - SURGICAL HISTORY Hx Surgeries: Yes Other/Comment: BREAST REDUCTION 1990, MICAELA HERNADEZ 1990. colonoscopy; colorectal - ANESTHESIA Hx Anesthesia: Yes Hx Anesthesia Reactions: No Hx Malignant Hyperthermia: No Meds Allergies/Adverse Reactions: Allergies Allergy/AdvReac Type Severity Reaction Status Date / Time No Known Allergies Allergy Verified 10/13/18 16:16 - Medications Medications: Current Medications Albuterol/Ipratropium (Duoneb 3 Mg/0.5 Mg (3 Ml) Ud) 3 ml INH RQ6 [facility] Last Admin: 10/17/18 09:59 Dose: Not Given Apixaban (Eliquis) 2.5 mg PO BID [facility] Last Admin: 10/16/18 18:01 Dose: 2.5 mg Aspirin (Ecotrin) 81 mg PO DAILY [facility] Last Admin: 10/16/18 11:00 Dose: 81 mg Bisacodyl (Dulcolax) 10 mg PO ONCE ONE Stop: 10/17/18 10:49 Budesonide (Pulmicort Respules) 0.5 mg INH RQ12 [facility] Last Admin: 10/17/18 09:59 Dose: Not Given Diltiazem HCl (Cardizem Cd) 180 mg PO DAILY [facility] Last Admin: 10/16/18 11:00 Dose: 180 mg Docusate Sodium (Colace) 100 mg PO BID [facility] Last Admin: 10/16/18 18:01 Dose: 100 mg Home Med (Patient's Own Medication) 1 tab PO DAILY [facility] Stop: 10/20/18 10:01 Last Admin: 10/16/18 11:00 Dose: 1 tab Ceftriaxone Sodium 1 gm/ (Sodium Chloride) 100 mls @ 100 mls/hr IVPB DAILY [facility]; Protocol Last Admin: 10/16/18 11:00 Dose: 100 mls/hr Azithromycin (Zithromax 500mg In Ns Addvantage) 500 mg in 250 mls @ 167 mls/hr IVPB Q24H [facility]; Protocol Last Admin: 10/16/18 12:40 Dose: 167 mls/hr Insulin Human Regular (Novolin R) 0 unit SC ACHS [facility]; Protocol Last Admin: 10/17/18 08:11 Dose: Not Given Magnesium Hydroxide (Milk Of Magnesia) 30 ml PO PCL PRN PRN Reason: Constipation Last Admin: 10/16/18 21:04 Dose: 30 ml Megestrol Acetate (Megace) 400 mg PO DAILY [facility] Last Admin: 10/16/18 10:48 Dose: 400 mg Polyethylene Glycol (Miralax) 17 gm PO DAILY [facility] Last Admin: 10/16/18 11:00 Dose: 17 gm Rosuvastatin Calcium (Crestor) 10 mg PO HS [facility] Last Admin: 10/16/18 21:04 Dose: 10 mg Sennosides (Senokot Tab) 8.6 mg PO BID [facility] Last Admin: 10/16/18 18:01 Dose: 8.6 mg Sertraline HCl (Zoloft) 50 mg PO DAILY [facility] Last Admin: 10/16/18 11:00 Dose: 50 mg Sitagliptin Phosphate (Januvia) 50 mg PO DAILY [facility] Last Admin: 10/16/18 10:59 Dose: 50 mg Physical Exam - Constitutional Appears: Non-toxic, No Acute Distress - Head Exam Head Exam: ATRAUMATIC, NORMAL INSPECTION - Eye Exam Eye Exam: EOMI, Normal appearance Pupil Exam: PERRL - ENT Exam ENT Exam: Mucous Membranes Moist - Respiratory Exam Respiratory Exam: Clear to Auscultation Bilateral, NORMAL BREATHING PATTERN. absent: Rhonchi, Wheezes - Cardiovascular Exam Cardiovascular Exam: Irregular Rhythm, +S1, +S2 - GI/Abdominal Exam GI & Abdominal Exam: Normal Bowel Sounds, Soft. absent: Tenderness - Exam Additional comments: (patient asked this resident to step out of the room during this part of exam, so please see attending note listed below) - Extremities Exam Extremities exam: Positive for: normal inspection - Back Exam Back exam: absent: CVA tenderness (L) - Neurological Exam Additional comments: Patient found not oriented to person/place/time/context - Psychiatric Exam Psychiatric exam: Normal Mood - Skin Skin Exam: Normal Color, Warm Results - Vital Signs Recent Vital Signs: Last Vital Signs Temp 98.2 F 10/17/18 00:03 Pulse 92 H 10/17/18 00:03 Resp 20 10/17/18 00:03 BP 111/70 10/17/18 00:03 Pulse Ox 96 10/17/18 00:03 - Labs Result Diagrams: 10/15/18 08:39 10/15/18 08:39 Labs: Laboratory Results - last 24 hr 10/16/18 10/16/18 10/16/18 11:12 16:30 21:08 POC Glucose (mg/dL) 210 H 111 H 153 H 10/17/18 07:22 POC Glucose (mg/dL) 105 Assessment & Plan - Assessment and Plan (Free Text) Plan: Uterine Prolapse - patient poor candidate for surgical correction of uterine prolapse due to multiple co-morbidities (including afib) - pt good candidate for pessary - recommend to patient daughter to follow up with Dr Wright outpatient - long-conversation with daughter at bedside in which questions were answered D/w attending, Dr Quique Rivera PGY3 <Morena Lei - Last Filed: 10/17/18 18:15> Meds - Medications Medications: Current Medications Albuterol/Ipratropium (Duoneb 3 Mg/0.5 Mg (3 Ml) Ud) 3 ml INH RQ6 [facility] Last Admin: 10/17/18 09:59 Dose: Not Given Apixaban (Eliquis) 2.5 mg PO BID [facility] Last Admin: 10/17/18 17:42 Dose: 2.5 mg Aspirin (Ecotrin) 81 mg PO DAILY [facility] Last Admin: 10/17/18 10:50 Dose: 81 mg Budesonide (Pulmicort Respules) 0.5 mg INH RQ12 [facility] Last Admin: 10/17/18 09:59 Dose: Not Given Diltiazem HCl (Cardizem Cd) 180 mg PO DAILY [facility] Last Admin: 10/17/18 10:50 Dose: 180 mg Docusate Sodium (Colace) 100 mg PO BID [facility] Last Admin: 10/17/18 17:42 Dose: 100 mg Home Med (Patient's Own Medication) 1 tab PO DAILY [facility] Stop: 10/20/18 10:01 Last Admin: 10/17/18 10:51 Dose: 1 tab Ceftriaxone Sodium 1 gm/ (Sodium Chloride) 100 mls @ 100 mls/hr IVPB DAILY [facility]; Protocol Last Admin: 10/17/18 10:51 Dose: 100 mls/hr Azithromycin (Zithromax 500mg In Ns Addvantage) 500 mg in 250 mls @ 167 mls/hr IVPB Q24H [facility]; Protocol Last Admin: 10/17/18 12:48 Dose: 167 mls/hr Insulin Human Regular (Novolin R) 0 unit SC ACHS [facility]; Protocol Last Admin: 10/17/18 12:05 Dose: Not Given Magnesium Hydroxide (Milk Of Magnesia) 30 ml PO PCL PRN PRN Reason: Constipation Last Admin: 10/16/18 21:04 Dose: 30 ml Megestrol Acetate (Megace) 400 mg PO DAILY [facility] Last Admin: 10/17/18 10:51 Dose: 400 mg Polyethylene Glycol (Miralax) 17 gm PO DAILY [facility] Last Admin: 10/17/18 10:53 Dose: 17 gm Rosuvastatin Calcium (Crestor) 10 mg PO HS [facility] Last Admin: 10/16/18 21:04 Dose: 10 mg Sennosides (Senokot Tab) 8.6 mg PO BID [facility] Last Admin: 10/17/18 17:42 Dose: 8.6 mg Sertraline HCl (Zoloft) 50 mg PO DAILY [facility] Last Admin: 10/17/18 10:51 Dose: 50 mg Sitagliptin Phosphate (Januvia) 50 mg PO DAILY [facility] Last Admin: 10/17/18 10:50 Dose: 50 mg Results - Vital Signs Recent Vital Signs: Last Vital Signs Temp 98.0 F 10/17/18 15:00 Pulse 81 10/17/18 15:00 Resp 20 10/17/18 15:00 BP 115/52 L 10/17/18 15:00 Pulse Ox 97 10/17/18 15:00 - Labs Result Diagrams: 10/15/18 08:39 10/15/18 08:39 Labs: Laboratory Results - last 24 hr 10/16/18 10/17/18 10/17/18 21:08 07:22 11:50 POC Glucose (mg/dL) 153 H 105 124 H Assessment & Plan - Assessment and Plan (Free Text) Plan: Pt seen and examined at bedside per Dr. rFias's request while she was in Surgery Complete Uterine Prolapse noted but easily reduced Believe good candidate for Pessary and already has appointment with Dispensing Optician for it, as per her daughter who was present at time of exam Pt and her daughter speak Macedonian and counseled on Constipation. Will increase po water intake and recommended Colace 100 mg po TID and also to increase fiber in diet Pt's daughter verbalized understanding and agree to keep appointment with her Dispensing Optician Thanks for consultation. Will sign off at this time Please re-consult if needed. - Date & Time Date: 10/17/18 Time: 18:15
[2018-10-17] MEDS ORDERED: Bisacodyl 5mg EC Tab PO ONE (11:05)
[2018-10-17] MEDS: Azithromycin 500mg/250ML NS 500 MG/250 ML BAG IVPB SCH (12:48)
--- NOTE | 2018-10-17 18:46 | CP.PCM.PN ---
Subjective - Date & Time of Evaluation Date of Evaluation: 10/17/18 Time of Evaluation: 09:00 - Subjective Subjective: seen on rounds doing better oob to chair Objective - Vital Signs/Intake and Output Vital Signs (last 24 hours): Temp Pulse Resp BP Pulse Ox 98.0 F 81 20 115/52 L 97 10/17/18 15:00 10/17/18 15:00 10/17/18 15:00 10/17/18 15:00 10/17/18 15:00 Intake and Output: 10/17/18 10/17/18 06:59 18:59 Intake Total 240 750 Balance 240 750 - Medications Medications: Current Medications Albuterol/Ipratropium (Duoneb 3 Mg/0.5 Mg (3 Ml) Ud) 3 ml INH RQ6 [facility] Last Admin: 10/17/18 09:59 Dose: Not Given Apixaban (Eliquis) 2.5 mg PO BID [facility] Last Admin: 10/17/18 17:42 Dose: 2.5 mg Aspirin (Ecotrin) 81 mg PO DAILY [facility] Last Admin: 10/17/18 10:50 Dose: 81 mg Budesonide (Pulmicort Respules) 0.5 mg INH RQ12 [facility] Last Admin: 10/17/18 09:59 Dose: Not Given Diltiazem HCl (Cardizem Cd) 180 mg PO DAILY [facility] Last Admin: 10/17/18 10:50 Dose: 180 mg Docusate Sodium (Colace) 100 mg PO BID [facility] Last Admin: 10/17/18 17:42 Dose: 100 mg Home Med (Patient's Own Medication) 1 tab PO DAILY [facility] Stop: 10/20/18 10:01 Last Admin: 10/17/18 10:51 Dose: 1 tab Ceftriaxone Sodium 1 gm/ (Sodium Chloride) 100 mls @ 100 mls/hr IVPB DAILY [facility]; Protocol Last Admin: 10/17/18 10:51 Dose: 100 mls/hr Azithromycin (Zithromax 500mg In Ns Addvantage) 500 mg in 250 mls @ 167 mls/hr IVPB Q24H [facility]; Protocol Last Admin: 10/17/18 12:48 Dose: 167 mls/hr Insulin Human Regular (Novolin R) 0 unit SC ACHS [facility]; Protocol Last Admin: 10/17/18 12:05 Dose: Not Given Magnesium Hydroxide (Milk Of Magnesia) 30 ml PO PCL PRN PRN Reason: Constipation Last Admin: 10/16/18 21:04 Dose: 30 ml Megestrol Acetate (Megace) 400 mg PO DAILY [facility] Last Admin: 10/17/18 10:51 Dose: 400 mg Polyethylene Glycol (Miralax) 17 gm PO DAILY [facility] Last Admin: 10/17/18 10:53 Dose: 17 gm Rosuvastatin Calcium (Crestor) 10 mg PO HS [facility] Last Admin: 10/16/18 21:04 Dose: 10 mg Sennosides (Senokot Tab) 8.6 mg PO BID [facility] Last Admin: 10/17/18 17:42 Dose: 8.6 mg Sertraline HCl (Zoloft) 50 mg PO DAILY [facility] Last Admin: 10/17/18 10:51 Dose: 50 mg Sitagliptin Phosphate (Januvia) 50 mg PO DAILY [facility] Last Admin: 10/17/18 10:50 Dose: 50 mg - Labs Labs: 10/15/18 08:39 10/15/18 08:39 PT 20.4 SECONDS (9.7-12.2) H 10/14/18 07:19 INR 1.9 10/14/18 07:19 APTT 32.0 SECONDS (21-34) 10/14/18 07:19 - Constitutional Appears: Well, Non-toxic, Chronically Ill - Head Exam Head Exam: ATRAUMATIC, NORMAL INSPECTION, NORMOCEPHALIC - Eye Exam Eye Exam: EOMI, Normal appearance, PERRL Pupil Exam: NORMAL ACCOMODATION, PERRL - ENT Exam ENT Exam: Mucous Membranes Moist, Normal Exam - Neck Exam Neck Exam: Full ROM, Normal Inspection. absent: Lymphadenopathy - Respiratory Exam Respiratory Exam: Clear to Ausculation Bilateral, NORMAL BREATHING PATTERN - Cardiovascular Exam Cardiovascular Exam: REGULAR RHYTHM, +S1, +S2. absent: Murmur - GI/Abdominal Exam GI & Abdominal Exam: Soft, Normal Bowel Sounds. absent: Tenderness - Rectal Exam Rectal Exam: Deferred - Exam Exam: NORMAL INSPECTION - Extremities Exam Extremities Exam: Full ROM, Normal Capillary Refill, Normal Inspection. 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
--- NOTE | 2018-10-17 20:59 | PN ---
DATE: 10/17/2018 SUBJECTIVE: The patient was seen and examined at the bedside on 10/17/2018. The patient is still in one-to-one because of fall precautions. No fever. No chills. No hematuria or hematochezia. No headache or dizziness. No chest pain or palpitations. The patient is a very poor historian. PHYSICAL EXAMINATION: VITAL SIGNS: Temperature 98.1, pulse 81, blood pressure 115/52, respiratory rate 20. HEENT: Normocephalic, atraumatic. Eyes: PERRLA. Extraocular muscles intact. Conjunctivae clear. Nose patent. Mucosal membranes moist. NECK: Supple. No carotid bruit. No thyromegaly. CHEST: Bilaterally symmetrical. HEART: S1 and S2 positive. LUNGS: Clear to auscultation. ABDOMEN: Soft. Bowel sounds present. No organomegaly. EXTREMITIES: No edema. No cyanosis. NEUROLOGICAL: The patient is awake and alert. Follows simple commands. MEDICATIONS: Cardizem, ceftriaxone, Crestor, DuoNeb, aspirin, Eliquis, Januvia, Megestrol, milk of magnesia, MiraLax, NovoLog, Pulmicort, Senokot, Zithromax, Zoloft. LABORATORY DATA: We do not have labs today, but I reviewed old labs. ASSESSMENT AND PLAN: Mrs. Jennifer Barraza is an 83-year-old female with a history of leukocytosis, improved, anemia, thrombocytosis, diabetes mellitus, has multiple medical problems, history of atrial fibrillation on Eliquis, type 1 diabetes mellitus, chronic kidney disease, rheumatoid arthritis, asthma, major depression, hypercholesterolemia, hypertension, constipation, rectal prolapse with surgical correction in early 2018, degenerative joint disease, has right lower lobe infiltrates, history of uterine prolapse, gastrointestinal and deep venous thrombosis prophylaxis, getting antibiotics. Repeat labs. We will follow up. Rehana Mcarthur MD MTDD
[2018-10-18] MEDS: Albuterol-Ipratrop 3 mg / 0.5 (3 ml) UD INH SCH ×4 (01:22→19:07)
[2018-10-18 07:14] LABS: HEMOGLOBIN 10.8 g/dL (11.0-16.0); MEAN CELL VOLUME 82.6 fL (81.0-99.0); MEAN CORPUSCULAR HEMOGLOBIN 27.5 pg (27.0-31.0); MEAN CORPUSCULAR HGB CONC 33.3 g/dL (33.0-37.0); MEAN PLATELET VOLUME 6.9 fL (7.2-11.7); RBC 3.92 Mil/uL (3.80-5.20); RED CELL DISTRIBUTION WIDTH 16.2 % (11.5-14.5)
[2018-10-18 07:28] LABS: BLOOD UREA NITROGEN 20 mg/dL (7-17); CALCIUM 8.6 mg/dl (8.6-10.4); GFR NON-AFRICAN AMERICAN > 60
[2018-10-18] MEDS: Budesonide 0.5 mg/2 ml Inhal Susp UD INH SCH ×2 (08:14→19:07)
[2018-10-18] MEDS: (Novolin R) Insulin Human Regular 100 units/ml vial SC SCH ×4 (08:26→21:18)
[2018-10-18] MEDS: Megestrol Acetate 40 mg/ml Cup PO SCH (10:17)
[2018-10-18] MEDS: diltiaZEM 180 mg/24 Hours CD Cap PO SCH (10:18)
[2018-10-18] MEDS: VESICARE 10MG PO SCH (10:18)
[2018-10-18] MEDS: POLYETHYLENE GLYCOL 3350 17 GM/Dose PACKET PO SCH (10:25)
[2018-10-18] MEDS: Magnesium Hydroxide Susp 30 ml UD PO PRN (10:43)
[2018-10-18] MEDS: Azithromycin 500mg/250ML NS 500 MG/250 ML BAG IVPB SCH (12:24)
[2018-10-18] MEDS ORDERED: Mineral Oil Enema 135 ml PR ONE (15:26)
--- NOTE | 2018-10-18 21:39 | PN ---
DATE: 10/18/2018 SUBJECTIVE: The patient is an 83-year-old female. The patient was seen and examined at the bedside on 10/18/2018, looking comfortable, doing better. Out of bed to the chair. No fever, no chills, no hematuria or hematochezia, no headache or dizziness, no chest pain or palpitation. PHYSICAL EXAMINATION: VITAL SIGNS: Temperature 98, pulse 81, respiratory rate 20, blood pressure 115/52, pulse oximetry 97%. HEENT: Head; normocephalic and atraumatic. Eyes; PERRLA. Extraocular muscles intact. Conjunctivae clear. Nose patent. Mucous membranes moist. NECK: Supple. No carotid bruit, JVD or thyromegaly. CHEST: Bilaterally symmetrical. HEART: S1 and S2 positive. LUNGS: Clear to auscultation. ABDOMEN: Soft. Bowel sounds present. No organomegaly. EXTREMITIES: No edema. No cyanosis. NEUROLOGICAL: The patient is awake and alert. Moving all four extremities. No focal deficits. MEDICATIONS: DuoNeb, Eliquis, Ecotrin, Cardizem, Colace, milk of magnesia, MiraLax, Crestor, Zoloft. LABORATORY DATA: White blood cell noted , hemoglobin 10.4, hematocrit 31.9, platelets 561. Sodium 140, potassium 4.3, BUN 21, creatinine 0.9, glucose 96. ASSESSMENT AND PLAN: Ms. Madi Rodriguez is an 83-year-old lady with anemia, thrombocytosis, cystocele, diabetes mellitus, diverticular disease of the colon, gouty arthritis, hemorrhoids, history of atrial fibrillation, history of colon polyps, hypercholesterolemia, community-acquired pneumonia, getting intravenous antibiotics. Infectious Disease is on the case. Gastrointestinal and deep venous thrombosis prophylaxis. Repeat labs. The patient has anemia. We will follow up. Out of bed. Physical Therapy will follow up. Rehana Mcarthur MD MTDD
[2018-10-19] MEDS: Albuterol-Ipratrop 3 mg / 0.5 (3 ml) UD INH SCH ×4 (01:55→20:17)
[2018-10-19] MEDS: (Novolin R) Insulin Human Regular 100 units/ml vial SC SCH ×4 (07:36→21:45)
[2018-10-19] MEDS: Budesonide 0.5 mg/2 ml Inhal Susp UD INH SCH ×2 (08:54→20:17)
[2018-10-19] MEDS: Megestrol Acetate 40 mg/ml Cup PO SCH (09:24)
[2018-10-19] MEDS: VESICARE 10MG PO SCH (09:25)
[2018-10-19] MEDS: diltiaZEM 180 mg/24 Hours CD Cap PO SCH (09:25)
[2018-10-19] MEDS: POLYETHYLENE GLYCOL 3350 17 GM/Dose PACKET PO SCH (09:29)
[2018-10-19] MEDS: Azithromycin 500mg/250ML NS 500 MG/250 ML BAG IVPB SCH (12:30)
--- NOTE | 2018-10-19 14:22 | CP.PCM.PN ---
Subjective - Date & Time of Evaluation Date of Evaluation: 10/19/18 Time of Evaluation: 07:00 - Subjective Subjective: seen on rounds patient examined chart reviewed cultures noted IV rx reordered Objective - Vital Signs/Intake and Output Vital Signs (last 24 hours): Temp Pulse Resp BP Pulse Ox 98.9 F 100 H 20 134/83 95 10/19/18 09:39 10/19/18 09:39 10/19/18 09:39 10/19/18 09:39 10/19/18 09:39 Intake and Output: 10/19/18 10/19/18 06:59 18:59 Intake Total 370 Balance 370 - Medications Medications: Current Medications Albuterol/Ipratropium (Duoneb 3 Mg/0.5 Mg (3 Ml) Ud) 3 ml INH RQ6 [facility] Last Admin: 10/19/18 13:53 Dose: Not Given Apixaban (Eliquis) 2.5 mg PO BID [facility] Last Admin: 10/19/18 09:25 Dose: 2.5 mg Aspirin (Ecotrin) 81 mg PO DAILY [facility] Last Admin: 10/19/18 09:25 Dose: 81 mg Budesonide (Pulmicort Respules) 0.5 mg INH RQ12 [facility] Last Admin: 10/19/18 08:54 Dose: Not Given Diltiazem HCl (Cardizem Cd) 180 mg PO DAILY [facility] Last Admin: 10/19/18 09:25 Dose: 180 mg Diphenhydramine HCl (Benadryl) 25 mg PO HS PRN PRN Reason: Sleep Last Admin: 10/18/18 21:49 Dose: 25 mg Docusate Sodium (Colace) 100 mg PO BID [facility] Last Admin: 10/19/18 09:24 Dose: 100 mg Home Med (Patient's Own Medication) 1 tab PO DAILY [facility] Stop: 10/20/18 10:01 Last Admin: 10/19/18 09:25 Dose: 1 tab Azithromycin (Zithromax 500mg In Ns Addvantage) 500 mg in 250 mls @ 167 mls/hr IVPB Q24H [facility]; Protocol Last Admin: 10/19/18 12:30 Dose: 167 mls/hr Insulin Human Regular (Novolin R) 0 unit SC ACHS [facility]; Protocol Last Admin: 10/19/18 11:52 Dose: Not Given Magnesium Hydroxide (Milk Of Magnesia) 30 ml PO PCL PRN PRN Reason: Constipation Last Admin: 10/18/18 10:43 Dose: 30 ml Megestrol Acetate (Megace) 400 mg PO DAILY [facility] Last Admin: 10/19/18 09:24 Dose: 400 mg Polyethylene Glycol (Miralax) 17 gm PO DAILY [facility] Last Admin: 10/19/18 09:29 Dose: 17 gm Rosuvastatin Calcium (Crestor) 10 mg PO HS [facility] Last Admin: 10/18/18 21:06 Dose: 10 mg Sennosides (Senokot Tab) 8.6 mg PO BID [facility] Last Admin: 10/19/18 09:24 Dose: 8.6 mg Sertraline HCl (Zoloft) 50 mg PO DAILY [facility] Last Admin: 10/19/18 09:25 Dose: 50 mg Sitagliptin Phosphate (Januvia) 50 mg PO DAILY [facility] Last Admin: 10/19/18 09:25 Dose: 50 mg - Labs Labs: 10/18/18 07:06 10/18/18 07:06 PT 20.4 SECONDS (9.7-12.2) H 10/14/18 07:19 INR 1.9 10/14/18 07:19 APTT 32.0 SECONDS (21-34) 10/14/18 07:19 - Constitutional Appears: Non-toxic, Chronically Ill - Head Exam Head Exam: ATRAUMATIC, NORMAL INSPECTION, NORMOCEPHALIC - Eye Exam Eye Exam: EOMI, Normal appearance, PERRL Pupil Exam: NORMAL ACCOMODATION, PERRL - ENT Exam ENT Exam: Mucous Membranes Moist, Normal Exam - Neck Exam Neck Exam: Full ROM, Normal Inspection. absent: Lymphadenopathy - Respiratory Exam Respiratory Exam: Clear to Ausculation Bilateral, NORMAL BREATHING PATTERN - Cardiovascular Exam Cardiovascular Exam: REGULAR RHYTHM, +S1, +S2. absent: Murmur - GI/Abdominal Exam GI & Abdominal Exam: Soft, Normal Bowel Sounds. absent: Tenderness - Rectal Exam Rectal Exam: Deferred - Extremities Exam Extremities Exam: Full ROM, Normal Capillary Refill, Normal Inspection. 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
[2018-10-20] MEDS: Albuterol-Ipratrop 3 mg / 0.5 (3 ml) UD INH SCH ×3 (02:55→13:30)
[2018-10-20 07:28] LABS: BASO # 0.1 K/uL (0.0-0.2); BASO % 0.6 % (0.0-2.0); EOS # 0.1 K/uL (0.0-0.7); EOS % 0.5 % (0.0-4.0); LYMPH % 18.3 % (20.0-40.0); MEAN CELL VOLUME 82.1 fL (81.0-99.0); MEAN CORPUSCULAR HGB CONC 32.9 g/dL (33.0-37.0); MEAN PLATELET VOLUME 6.8 fL (7.2-11.7); MONO # 0.7 K/uL (0.0-0.8); MONO % 6.5 % (0.0-10.0); NEUT # 8.2 K/uL (1.8-7.0); NEUT % 74.1 % (50.0-75.0); RBC 4.06 Mil/uL (3.80-5.20); RED CELL DISTRIBUTION WIDTH 16.3 % (11.5-14.5); WHITE BLOOD COUNT 11.1 K/uL (4.8-10.8)
[2018-10-20] MEDS: (Novolin R) Insulin Human Regular 100 units/ml vial SC SCH ×3 (07:32→17:30)
[2018-10-20 08:06] LABS: ALBUMIN 3.2 g/dL (3.5-5.0); ALT/SGPT 46 U/L (9-52); AST/SGOT 38 U/L (14-36); BLOOD UREA NITROGEN 23 mg/dL (7-17); CALCIUM 9.1 mg/dl (8.6-10.4); GFR NON-AFRICAN AMERICAN 60
[2018-10-20] MEDS: Budesonide 0.5 mg/2 ml Inhal Susp UD INH SCH (09:14)
[2018-10-20] MEDS: Megestrol Acetate 40 mg/ml Cup PO SCH (09:26)
[2018-10-20] MEDS: POLYETHYLENE GLYCOL 3350 17 GM/Dose PACKET PO SCH (09:27)
[2018-10-20] MEDS: diltiaZEM 180 mg/24 Hours CD Cap PO SCH (09:27)
[2018-10-20] MEDS: VESICARE 10MG PO SCH (09:27)
[2018-10-20] MEDS: Azithromycin 500mg/250ML NS 500 MG/250 ML BAG IVPB SCH (11:12)
--- NOTE | 2018-10-20 13:13 | RAD ---
HISTORY: r/o pneumonia COMPARISON: Chest x-ray performed 10/13/18 TECHNIQUE: Chest, one view. FINDINGS: The patient's chin obscures evaluation of the lung apices. LUNGS: Patchy right lower lobe atelectasis or pneumonia. Please note that chest x-ray has limited sensitivity for the detection of pulmonary masses. PLEURA: No significant pleural effusion identified. No definite pneumothorax . CARDIOVASCULAR: Heart size appears borderline. Marked aortic ectasia. Atherosclerotic calcifications of the aorta. OSSEOUS STRUCTURES: Degenerative changes. VISUALIZED UPPER ABDOMEN: Residual contrast within the colon. OTHER FINDINGS: None. IMPRESSION: Patchy right lower lobe atelectasis or pneumonia. Borderline cardiomegaly. Aortic ectasia. Atherosclerotic calcifications.
[2018-10-20 16:15] VITALS: BP 126/77; PULSE 67; RESP 20; TEMP 98; O2SAT 96
--- NOTE | 2018-10-21 08:52 | CP.PCM.PN ---
Subjective - Date & Time of Evaluation Date of Evaluation: 10/20/18 Time of Evaluation: 13:00 - Subjective Subjective: pt is slightly confused which is her norm and is sitting up in the chair comfortably with daughter at the bedside with no complaints. Objective - Vital Signs/Intake and Output Vital Signs (last 24 hours): Temp Pulse Resp BP Pulse Ox 98 F 67 20 126/77 96 10/20/18 16:00 10/20/18 16:00 10/20/18 16:00 10/20/18 16:00 10/20/18 16:00 - Labs Labs: 10/20/18 07:19 10/20/18 07:19 PT 20.4 SECONDS (9.7-12.2) H 10/14/18 07: INR 1.9 10/14/18 07:19 APTT 32.0 SECONDS (21-34) 10/14/18 07:19 Assessment and Plan - Assessment and Plan (Free Text) Assessment: 83 F with past medical history of chronic constipation, a-fib and on eliquis, CVA, HTN who was admitted for GI bleed and pneumonia. general surgery was consulted for rectal prolapse. Patient has chronic constipation and does not take medication regularly to prevent hard stools. Patient frequnetly has issues with straining and rectum prolapses. Patient had repair earleir this year with Dr. Veloz. Patient's does not have prolapse currently. She is complaining of cough. Denies fever/chills, cp, SOB, abd pain, n/v/d, urinary symptoms. pt seen and examined. VSS, labs reviewed. pt is stable. resp easy and unlabored. abdomen soft and tender. activity as tolerated. discharge plan discussed with Dr. Boyd AUTOMATIC EMBROIDERY MACHINE TENDER, Dr. Nunez, patients and family. Questions answered. DISCHARGE PLANNING: Follow up with PMD in 1 week Follow up with Dr. Nunez in 2 weeks Resume all home medications Please take new medications in Rx Levaquin 500mg PO daily Colace 100 mg PO BID [facility] for home PT Activity as tolerated Call PMD or go to the emergancy room if symptoms return or worsen
--- NOTE | 2018-10-21 09:54 | DS ---
HISTORY OF PRESENT ILLNESS: This is an 83-year-old female came in with shortness of breath, fatigue, change in mental status, status post fall. The patient came into the hospital after status post fall, fatigue, change in mental status, and diagnosed with pneumonia. The patient has a past medical history of hypertension, syncope, type 2 diabetes, chronic kidney disease, rheumatoid arthritis, anal fissure, rectal and uterine prolapse, diabetes mellitus. SOCIAL HISTORY: The patient lives with daughter in a community. Denies smoking. Denies alcohol. HOME MEDICATIONS: Reviewed. ALLERGIES: THE PATIENT HAS NO KNOWN ALLERGIES. I saw the patient today at the bedside. She was alert. Daughter was at the bedside as well. Reported less constipation, was constipated only weekend. The patient is ambulating to the bathroom. Reporting less shortness of breath, cough, occasionally cough with clear phlegm. Denies abdominal pain, hematuria, hematochezia, fevers, or chills. PHYSICAL EXAMINATION: VITAL SIGNS: Temperature 97.1, pulse of 100, blood pressure 143/87, respiratory rate of 22, O2 saturation 95% on room air. GENERAL APPEARANCE: Chronically ill. HEENT: Normocephalic. Atraumatic. PERRLA. Mucous membranes moist. NECK: Supple. No thyromegaly. RESPIRATORY: Clear to auscultation. No wheeze. No rhonchi. CARDIOVASCULAR: S1 and S2. No JVD. ABDOMEN: Soft and nondistended. No organomegaly. EXTREMITIES: The patient moving all extremities. Gait slow and steady. No edema, no cyanosis. SKIN: Intact. NEUROLOGIC: The patient is alert and oriented times 2 to 3. Some cognitive deficits. MEDICATIONS: DuoNeb, Eliquis, Ecotrin, azithromycin IV piggyback, Pulmicort, Rocephin IV piggyback, Cardizem, Benadryl, Colace. Accu-Check before meals and at bedtime with NovoLog coverage, Megace, MiraLax, Crestor, Senokot, Zoloft, Januvia. LABORATORY DATA: On 10/20/2018, white blood cells 11.1, hemoglobin 11, hematocrit 33.3, platelets count 539. Sodium 142, potassium 4.5, BUN is 23, creatinine 0.9, fasting glucose 104 today. ASSESSMENT AND PLAN: An 83-year-old female has status post fall at home, had some periods of confusion, diagnosed with pneumonia. Infectious Disease is on the case. The patient received intravenous antibiotics Rocephin, azithromycin. Pulmonology consulted. The patient has recent constipation due to rectal fissure and prolapse. Seen by Urology. Also seen by SERVICE CENTER REPRESENTATIVE. Discussed with daughter for pessary procedure outpatient once patient is stable. Barraza has SERVICE CENTER REPRESENTATIVE doctor who is willing to do the procedure for patient once the patient is discharged to home. The patient will follow up with primary physician for discharge order today, pending Infectious Disease clearance. The patient is to take p.o. antibiotics at home. Spoke with case management today. Ordered shower chair, rolling walker, and also patient to decrease falls. We will follow up. all ABOVE NOTED , AGREED WITH FORKLIFT TRUCK OPERATOR , EDUCATION DONE , D/D WITH FORKLIFT TRUCK OPERATOR , ID IS ON THE CASE , WILL F/U Dinesh King APN Rehana Mcarthur MD MTDShahab
--- NOTE | 2018-10-21 09:55 | PN ---
DATE: 10/19/2018 SUBJECTIVE: This is an 83-year-old female, came in with pneumonia, status post fall, knee pain. She has past medical history of syncope, type 2 diabetes, anal fissure, uterine prolapse, and constipation. The patient was seen at the bedside today. Alert and awake. She denies shortness of breath or chest pain. Reports occasional cough with some clear phlegm. Denies abdominal pain, hematochezia, fevers or chills. The patient also is reporting she has some constipation, which she is medicated for and today reports no bowel movement. PHYSICAL EXAMINATION: VITAL SIGNS: Temperature 98, pulse rate 85, blood pressure 112/66, and O2 sat is 95% on room air. GENERAL: The patient appears chronically ill. HEENT: Normocephalic and atraumatic, PERRLA. Mucous membranes moist. NECK: Supple. No thyromegaly. RESPIRATORY: Clear to auscultation. No wheeze. No rhonchi. CARDIOVASCULAR: S1 and S2. No JVD. GASTROINTESTINAL: Abdomen is soft, distended. No organomegaly. Positive bowel sounds. EXTREMITIES: The patient is moving all extremities. No edema. No cyanosis. SKIN: Intact. NEUROLOGIC: The patient is alert and oriented x3. MEDICATIONS: DuoNeb, Eliquis, Ecotrin. The patient is receiving Zithromax 500 mg IV piggyback, Pulmicort, Cardizem, Benadryl, Colace twice a day, Accu-Chek before meals and at bedtime, insulin coverage, milk of magnesia, Megace, MiraLax, Crestor, Senokot, Zoloft, and Januvia. LABORATORY DATA: On 10/18/2018, white blood cells 10, hemoglobin 10.8, hematocrit 32.4, and platelet count 533. Sodium 142, potassium 3.9, BUN is 20, GFR over 60, and random glucose is 104. ASSESSMENT AND PLAN: This 83-year-old female has pneumonia, hypertension, congestive heart failure. She has uterine prolapse. The patient has some constipation. She took MiraLax and Senokot and also Colace. Reports some rectal pain. The patient is seen by Obstetrics/Gynecology. We have reviewed THE CHART . The patient will be receiving pessary as outpatient when stable. Continue intravenous antibiotics. We will follow up. all ABOVE NOTED , AGREED WITH ASSISTANT QUALITY MANAGER , EDUCATION DONE , D/D WITH ASSISTANT QUALITY MANAGER ,SURGERY AND OBGY IS ON THE CASE , WILL F/U Dinesh King APN Rehana Mcarthur MD SUSANA
== END 2018-10-20 19:08 | disposition home or self-care (01) | DRG 194 ==
LOC: C.ER 15:52 → C.9E 18:45 → C.3T 19:07
PROVIDERS: ADMIT Internal Medicine; ATTEND Internal Medicine
DX: J18.9 Pneumonia, unspecified organism (principal); I13.0 Hypertensive heart and chronic kidney disease with heart failure and stage 1 through stage 4 chronic kidney disease, or unspecified chronic kidney disease; I50.9 Heart failure, unspecified; E11.22 Type 2 diabetes mellitus with diabetic chronic kidney disease; N18.9 Chronic kidney disease, unspecified; M06.9 Rheumatoid arthritis, unspecified; I48.91 Unspecified atrial fibrillation; D64.9 Anemia, unspecified; E78.5 Hyperlipidemia, unspecified; I25.10 Atherosclerotic heart disease of native coronary artery without angina pectoris; E78.00 Pure hypercholesterolemia, unspecified; N81.4 Uterovaginal prolapse, unspecified; M10.9 Gout, unspecified; J45.909 Unspecified asthma, uncomplicated; K64.9 Unspecified hemorrhoids; K57.30 Diverticulosis of large intestine without perforation or abscess without bleeding; F03.90 Unspecified dementia, unspecified severity, without behavioral disturbance, psychotic disturbance, mood disturbance, and anxiety; K59.09 Other constipation; F32.9 Major depressive disorder, single episode, unspecified; K62.3 Rectal prolapse; Z79.84 Long term (current) use of oral hypoglycemic drugs; Z79.01 Long term (current) use of anticoagulants; Z86.010 Personal history of colon polyps; Z86.73 Personal history of transient ischemic attack (TIA), and cerebral infarction without residual deficits; Z95.5 Presence of coronary angioplasty implant and graft